=== PATIENT | male | born 1935 | race Caucasian/White ===

== ENCOUNTER 2017-09-07 10:16 | Day surgery (SDC) | payer MEDICARE, OTHER ==
[2017-09-07] MEDS ORDERED: Tetracaine HCl/PF 0.5% 4 ML Bottle EYEBOTH SCH (11:30)
[2017-09-07] MEDS ORDERED: Sodium Chloride 0.9% 10 ML Syringe FLUSH PRN (11:33)
[2017-09-07] MEDS ORDERED: Lidocaine 1%/Sod Bicarbonate in NS 8.4% 1 ML Syringe IDERM PRN (11:33)
[2017-09-07] MEDS ORDERED: Lactated Ringers 1,000 ML IV SCH (11:45)
[2017-09-07] MEDS ORDERED: Lidocaine 1% with EPINEPHrine 1:100,000 20 ML MDV ONE (12:08)
--- NOTE | 2017-09-07 12:10 | PCM.PREANE ---
Preanesthetic Assessment - Allergies Allergies/Adverse Reactions: Allergies Allergy/AdvReac Type Severity Reaction Status Date / Time No Known Allergies Allergy Verified 09/06/17 12:32 PreAnesthesia Questionnaire HEENT History: Reports: Cataract Cardiovascular History: Reports: High Cholesterol, Hypertension, Other (See Below) (aortic valve repacement, bypass x3) Respiratory History: Reports: None Gastrointestinal History: Reports: None Neurological History: Reports: None Psychiatric History: Reports: None Endocrine/Metabolic History: Reports: None - Past Surgical History Head Surgeries/Procedures: Reports: None HEENT Surgical History: Reports: Adenoidectomy, Tonsillectomy Cardiovascular Surgical History: Reports: Coronary Artery Bypass, Valve Replacement Respiratory Surgical History: Reports: None GI Surgical History: Reports: Hernia, Inguinal Male Surgical History: Reports: None, Other (See Below) (bladder stone) Endocrine Surgical History: Reports: None Neurological Surgical History: Reports: None Musculoskeletal Surgical History: Reports: None Oncologic Surgical History: Reports: None Dermatological Surgical History: Reports: None - SUBSTANCE USE Smoking Status *Q: Never Smoker Second Hand Smoke Exposure: No Recreational Drug Use History: No - HOME MEDS Home Medications: Home Meds Aspirin [Halfprin] 81 mg PO DAILY 09/06/17 [History] Lisinopril/Hydrochlorothiazide [Lisinopril-Hctz 20-25 mg Tab] 1 tab PO DAILY [History] Metoprolol Tartrate [Metoprolol Tartrate] 50 mg PO DAILY 09/06/17 [History] Simvastatin [Simvastatin] 20 mg PO DAILY 09/06/17 [History] Tetrahydrozoline HCl [Visine] 1 drop EYEBOTH ASDIRECTED 09/06/17 [History] amLODIPine Besylate [Amlodipine Besylate] 5 mg PO DAILY 09/06/17 [History] - CURRENT (IN HOUSE) MEDS Current Meds: Current Medications Lactated Ringer's (Ringers, Lactated) 1,000 mls @ 125 mls/hr IV ASDIRECTED CARLIE Stop: 09/07/17 23:00 Lidocaine/Sodium Bicarbonate (Buffered Lidocaine 1% In Ns 8.4%) 0.25 ml IDERM ONETIME PRN PRN Reason: Prior to IV Start Stop: 09/07/17 18:00 Sodium Chloride (Saline Flush) 10 ml FLUSH ASDIRECTED PRN PRN Reason: Keep Vein Open Stop: 09/07/17 18:00 Tetracaine HCl (Tetracaine 0.5% Steri-Unit Sara) 0 ml EYEBOTH ASDIRECTED CARLIE Stop: 09/07/17 18:00 Discontinued Medications Lidocaine/Epinephrine (Xylocaine 1% With Epinephrine 1:100,000) Confirm Administered Dose 20 ml .ROUTE .STK-MED ONE Stop: 09/07/17 12:09
--- NOTE | 2017-09-07 12:23 | PCM.PREANE ---
Preanesthetic Assessment - Anesthesia/Transfusion/Family Hx Anesthesia History: Prior Anesthesia Without Reaction Family History of Anesthesia Reaction: No Transfusion History: No Prior Transfusion(s) Intubation History: Unknown - Review of Systems General: No Symptoms Pulmonary: No Symptoms Cardiovascular: No Symptoms Gastrointestinal: No Symptoms Neurological: No Symptoms Other: Reports: None - Physical Assessment NPO Status Date: 09/06/17 NPO Status Time: 20:00 Pulse: 53 O2 Sat by Pulse Oximetry: 98 Respiratory Rate: 16 Blood Pressure: 138/41 Vital Signs: Last Vital Signs Temp 36.6 C 09/07/17 11:30 Pulse 53 L 09/07/17 11:30 Resp 16 09/07/17 11:30 BP 138/41 L 09/07/17 11:30 Pulse Ox 98 09/07/17 11:30 Height: 1.75 m Weight: 79.379 kg ASA Class: 2 Mental Status: Alert & Oriented x3 Airway Class: Mallampati = 2 Dentition: Reports: Dentures (upper/lower) Thyro-Mental Finger Breadths: 3 Mouth Opening Finger Breadths: 3 ROM/Head Extension: Full Lungs: Clear to Auscultation, Normal Respiratory Effort Cardiovascular: Regular Rate, Regular Rhythm - Allergies Allergies/Adverse Reactions: Allergies Allergy/AdvReac Type Severity Reaction Status Date / Time No Known Allergies Allergy Verified 09/06/17 12:32 - Anesthesia Plan Beta Thelma: Metoprolol Med Last Dose Date: 09/07/17 Med Last Dose Time: 06:00 - Acknowledgements Anesthesia Type Planned: MAC Pt an Appropriate Candidate for the Planned Anesthesia: Yes Alternatives and Risks of Anesthesia Discussed w Pt/Guardian: Yes Pt/Guardian Understands and Agrees with Anesthesia Plan: Yes PreAnesthesia Questionnaire HEENT History: Reports: Cataract Cardiovascular History: Reports: High Cholesterol, Hypertension, Other (See Below) (aortic valve repacement, bypass x3) Respiratory History: Reports: None Gastrointestinal History: Reports: None Neurological History: Reports: None Psychiatric History: Reports: None Endocrine/Metabolic History: Reports: None - Past Surgical History Head Surgeries/Procedures: Reports: None HEENT Surgical History: Reports: Adenoidectomy, Tonsillectomy Cardiovascular Surgical History: Reports: Coronary Artery Bypass, Valve Replacement Respiratory Surgical History: Reports: None GI Surgical History: Reports: Hernia, Inguinal Male Surgical History: Reports: None, Other (See Below) (bladder stone) Endocrine Surgical History: Reports: None Neurological Surgical History: Reports: None Musculoskeletal Surgical History: Reports: None Oncologic Surgical History: Reports: None Dermatological Surgical History: Reports: None - SUBSTANCE USE Smoking Status *Q: Never Smoker Second Hand Smoke Exposure: No Recreational Drug Use History: No - HOME MEDS Home Medications: Home Meds Aspirin [Halfprin] 81 mg PO DAILY 09/06/17 [History] Lisinopril/Hydrochlorothiazide [Lisinopril-Hctz 20-25 mg Tab] 1 tab PO DAILY [History] Metoprolol Tartrate [Metoprolol Tartrate] 50 mg PO DAILY 09/06/17 [History] Simvastatin [Simvastatin] 20 mg PO DAILY 09/06/17 [History] Tetrahydrozoline HCl [Visine] 1 drop EYEBOTH ASDIRECTED 09/06/17 [History] amLODIPine Besylate [Amlodipine Besylate] 5 mg PO DAILY 09/06/17 [History] - CURRENT (IN HOUSE) MEDS Current Meds: Current Medications Lactated Ringer's (Ringers, Lactated) 1,000 mls @ 125 mls/hr IV ASDIRECTED [facility] Stop: 09/07/17 23:00 Lidocaine/Sodium Bicarbonate (Buffered Lidocaine 1% In Ns 8.4%) 0.25 ml IDERM ONETIME PRN PRN Reason: Prior to IV Start Stop: 09/07/17 18:00 Sodium Chloride (Saline Flush) 10 ml FLUSH ASDIRECTED PRN PRN Reason: Keep Vein Open Stop: 09/07/17 18:00 Tetracaine HCl (Tetracaine 0.5% Steri-Unit Sara) 0 ml EYEBOTH ASDIRECTED CARLIE Stop: 09/07/17 18:00 Discontinued Medications Lidocaine/Epinephrine (Xylocaine 1% With Epinephrine 1:100,000) Confirm Administered Dose 20 ml .ROUTE .STK-MED ONE Stop: 09/07/17 12:09
[2017-09-07] MEDS ORDERED: Lidocaine 1% 4 ML ONE (12:59)
[2017-09-07] MEDS ORDERED: Propofol 200 MG/20 ML SDV ONE ×2 (12:59→13:00)
[2017-09-07] MEDS ORDERED: Erythromycin Base 0.5% Ophth Oint 1 GM Tube EYEBOTH ONE (13:02)
[2017-09-07] MEDS ORDERED: Erythromycin Base 0.5% Ophth Oint 1 GM Tube ONE (13:17)
--- NOTE | 2017-09-07 13:38 | PCM48HPAN ---
Post Anesthesia Note - EVALUATION WITHIN 48HRS OF ANESTHETIC Vital Signs in Normal Range: Yes Patient Participated in Evaluation: Yes Respiratory Function Stable: Yes Airway Patent: Yes Cardiovascular Function Stable: Yes Hydration Status Stable: Yes Pain Control Satisfactory: Yes Nausea and Vomiting Control Satisfactory: Yes Mental Status Recovered: Yes Pulse Rate: 53 SaO2: 100 Resp Rate: 16 Temperature: 37 C Blood Pressure: 107/42
[2017-09-07] MEDS ORDERED: fentaNYL 100 MCG/2 ML SDV ONE (13:45)
[2017-09-07 13:54] VITALS: BP 107/42
== END 2017-09-07 14:28 | disposition home or self-care (01) ==
LOC: JD.SDS 10:16
PROVIDERS: ATTEND Ophthalmology
DX: L82.1 Other seborrheic keratosis (principal); H02.89 Other specified disorders of eyelid; I10 Essential (primary) hypertension; E78.00 Pure hypercholesterolemia, unspecified; Z98.890 Other specified postprocedural states; Z79.82 Long term (current) use of aspirin; Z79.899 Other long term (current) drug therapy; Z87.891 Personal history of nicotine dependence
CPT/HCPCS: 11442; 65400; A9270; J3010; J7120; 88304; 88305; J2001; J2704

== ENCOUNTER 2018-09-30 04:45 | Inpatient (IN) | payer MEDICARE, OTHER ==
[2018-09-30] MEDS ORDERED: Furosemide 40 MG/4 ML VIAL IVPUSH ONE (05:04)
[2018-09-30] MEDS ORDERED: Sodium Chloride 0.9% 10 ML Syringe FLUSH PRN (05:04)
--- NOTE | 2018-09-30 05:09 | EDM.PDOC ---
ED HPI GENERAL MEDICAL PROBLEM - General Chief Complaint: Respiratory Problem Stated Complaint: [facility] Time Seen by Provider: 09/30/18 04:50 Source of Information: Reports: Patient, EMS History Limitations: Reports: No Limitations - History of Present Illness INITIAL COMMENTS - FREE TEXT/NARRATIVE: 82-year-old male presents to the ED per [facility]. States that he's had gradual onset of increasing dyspnea and difficulty breathing with some central chest pressure for the last 3-4 days. He's been sleeping on the couch and has been able to lie flat but tonight he did not sleep at all because of dyspnea. He is not on home oxygen. Known coronary disease having had triple bypass carried out in 2001. No stents have ever been placed. Recent changes to medications with the addition of Zoloft within the last month and he believes amlodipine 5 mg daily for blood pressure control. He has a cough but no sputum production. Tight has been poor over the last month with he reports a 10 pound weight loss. Paramedics report O2 sats were 86% upon their arrival. They placed him on O2 at 2 L/m to these achieved O2 sats of 91%. Increased to 3 L/m in the ER. CODE STATUS is full resuscitation. Onset: Gradual Onset Date: 09/27/18 (Actually increasing dyspnea over the last several days if not the last week.) Duration: Day(s):, Constant (Worse at night.), Getting Worse Location: Reports: Chest (Crease difficulty breathing.) Quality: Reports: Pressure Severity: Moderate (Water difficulty breathing.) Improves with: Reports: None Worsens with: Reports: Other, Movement Context: Denies: Activity, Exercise (Lying flat makes things worse), Lifting, Sick Contact, Trauma, Other Associated Symptoms: Reports: Chest Pain, Cough, cough w sputum (Very little sputum production. Perhaps maybe pinkish at times), Loss of Appetite, Malaise, Shortness of Breath, Weakness. Denies: No Other Symptoms (Central chest heaviness), Confusion, Diaphoresis, Fever/Chills, Headaches, Nausea/Vomiting, Rash, Seizure Treatments FURNACE RELINER: Reports: Other (see below) (None.) Chest Pain Score (Numeric/FACES): 3 - Related Data Allergies Allergy/AdvReac Type Severity Reaction Status Date / Time No Known Allergies Allergy Verified 09/30/18 04:56 Home Meds: Home Meds Aspirin [Halfprin] 81 mg PO DAILY 09/06/17 [History] Lisinopril/Hydrochlorothiazide [Lisinopril-Hctz 20-25 mg Tab] 20 mg PO DAILY [History] Metoprolol Tartrate 25 mg PO BID 09/06/17 [History] Simvastatin 20 mg PO DAILY 09/06/17 [History] amLODIPine Besylate [Amlodipine Besylate] 5 mg PO DAILY 09/06/17 [History] Ferrous Sulfate 324 mg PO DAILY 09/30/18 [History] Sertraline [Zoloft] 50 mg PO DAILY 09/30/18 [History] Past Medical History HEENT History: Reports: Cataract, Impaired Vision Other HEENT History: Wears glasses Cardiovascular History: Reports: Bypass, High Cholesterol, Hypertension, Other ( See Below) Other Cardiovascular History: aortic stenosis Respiratory History: Reports: None Gastrointestinal History: Reports: None Neurological History: Reports: None Psychiatric History: Reports: None Endocrine/Metabolic History: Reports: None - Past Surgical History Head Surgeries/Procedures: Reports: None HEENT Surgical History: Reports: Adenoidectomy, Tonsillectomy Cardiovascular Surgical History: Reports: Coronary Artery Bypass, Valve Replacement Respiratory Surgical History: Reports: None GI Surgical History: Reports: Hernia, Inguinal Male Surgical History: Reports: None Endocrine Surgical History: Reports: None Neurological Surgical History: Reports: None Musculoskeletal Surgical History: Reports: None Oncologic Surgical History: Reports: None Dermatological Surgical History: Reports: None Social & Family History - Tobacco Use Smoking Status *Q: Former Smoker Used Tobacco, but Quit: Yes Month/Year Tobacco Last Used: 2002 - Recreational Drug Use Recreational Drug Use: No - Living Situation & Occupation Living situation: Reports: Occupation: Employed [employer] - Review of Systems Review Of Systems: See Below Constitutional: Reports: Malaise, Weakness, Fatigue, Decreased Appetite, Weight Loss (Reports 10 pound weight loss over the last month to 6 weeks). Denies: Fever, Chills HEENT: Reports: Glasses, Hearing Loss (Mild.) Respiratory: Reports: Shortness of Breath, Cough, Sputum. Denies: Wheezing, Pleuritic Chest Pain, Hemoptysis (Occasional pinkish sputum production), Other Cardiovascular: Reports: Blood Pressure Problem, Dyspnea on Exertion. Denies: No Symptoms, Chest Pain, Claudication, Edema, Lightheadedness, Orthopnea ( Chronic hypertension) Endocrine: Reports: Fatigue (Chronically) GI/Abdominal: Reports: Constipation (Occasional problems with constipation) : Reports: Frequency, Other (Arterial usually 3) Musculoskeletal: Reports: Neck Pain (Case no shoulder pain), Shoulder Pain, Back Pain, Joint Pain Skin: Reports: Bruising (Bruises easily particular in his hands and forearms. A Baby Aspirin Daily) Neurological: Reports: No Symptoms Psychiatric: Reports: Anxiety, Depression Hematologic/Lymphatic: Reports: No Symptoms Immunologic: Reports: No Symptoms ED EXAM, GENERAL - Physical Exam Exam: See Below Exam Limited By: No Limitations General Appearance: Alert, WD/WN, Mild Distress, Other (Mild respiratory distress. He can speak in full sentences. O2 sats were 86% on room air. 94% on 3 L. Respiratory rate was 25/m. BP 150/50. Afebrile) Eye Exam: Bilateral Eye: Normal Inspection Throat/Mouth: Normal Inspection, Normal Lips, Normal Oropharynx Head: Atraumatic, Normocephalic Neck: Normal Inspection, Supple, Non-Tender, Full Range of Motion. No: Lymphadenopathy (L), Lymphadenopathy (R) Respiratory/Chest: No Accessory Muscle Use, Chest Non-Tender, Respiratory Distress (Tachypnea at rest 25/m.), Rales (Riley both lung bases worse on the right as compared to the left.) Cardiovascular: No Edema ( palpation of his radial pulse which is quite strong and bounding.), No Gallop, No Murmur, No Rub, Irregularly Irregular (Occasional PACs appreciated on). No: Normal Peripheral Pulses Peripheral Pulses: 2+: Posterior Tibial (L), Posterior Tibial (R), Dorsalis Pedis (L), Dorsalis Pedis (R), 3+: Carotid (L), Carotid (R), Radial (L), Radial (R) GI/Abdominal: Normal Bowel Sounds, Soft, Non-Tender, No Organomegaly, No Abnormal Bruit, No Mass, Pelvis Stable, Distended (Mild tympany to percussion upper abdomen with mild aerophagia.) Back Exam: Normal Inspection, Full Range of Motion. No: CVA Tenderness (L), CVA Tenderness (R) Extremities: Normal Inspection, Normal Range of Motion, Non-Tender, No Pedal Edema Neurological: Alert, Oriented, CN II-XII Intact, Normal Cognition Psychiatric: Normal Affect, Normal Mood Skin Exam: Warm, Dry, Intact, Normal Color, Other (Venous stasis dermatitis both upper forearms and hands from reading under the skin.) EKG INTERPRETATION EKG Date: 09/30/18 Time: 04:50 Rhythm: NSR Rate (Beats/Min): 85 (Occasional PACs) [place]: LAD-Left [place] Deviation (-28) P-Wave: Enlarged (Left atrial hypertrophy pattern) QRS: Other (Q waves V1 and V2 and near Q-wave V3 compatible with old large anteroseptal myocardial infarction. Left ventricular hypertrophy pattern with repolarization abnormality or strain pattern.) ST-T: Other (Moderately prolonged ST segment depression in leads 1 and T-wave inversion aVL.) QT: Prolonged EKG Interpretation Comments: Abnormal ECG. Course - Vital Signs Last Recorded V/S: Last Vital Signs Temp 36.2 C 09/30/18 04:49 Pulse 89 09/30/18 04:49 Resp 25 H 09/30/18 04:49 BP 150/50 H 09/30/18 04:49 Pulse Ox 95 09/30/18 07:39 - Orders/Labs/Meds Orders: Active Orders 24 hr Category Date Time Status EKG Documentation Completion [RC] STAT Care 09/30/18 05:03 Active Oxygen Therapy [RC] ASDIRECTED Care 09/30/18 05:03 Active Peripheral IV Care [RC] . DIRECTED Care 09/30/18 05:04 Active Sodium Chloride 0.9% [Saline Flush] Med 09/30/18 05:04 Active 10 ml FLUSH ASDIRECTED PRN Peripheral IV Insertion Adult [OM.PC] Stat Oth 09/30/18 05:04 Ordered Medication Orders Sodium Chloride (Saline Flush) 10 ml FLUSH ASDIRECTED PRN PRN Reason: Keep Vein Open Last Admin: 09/30/18 05:13 Dose: 10 ml Labs: Laboratory Tests 09/30/18 09/30/18 09/30/18 Range/Units 05:20 05:20 05:20 WBC 11.08 H (4.23-9.07) K/mm3 RBC 4.11 L (4.63-6.08) M/mm3 Hgb 12.0 L (13.7-17.5) gm/L Hct 36.2 L (40.1-51.0) % MCV 88.1 (79.0-92.2) fl MCH 29.2 (25.7-32.2) pg MCHC 33.1 (32.2-35.5) g/dl RDW Std Deviation 42.0 (35.1-43.9) fL Plt Count 217 (163-337) K/mm3 MPV 11.6 (9.4-12.3) fl Neutrophils % (Manual) 81 H (40-60) % Band Neutrophils % 0 (0-10) % Lymphocytes % (Manual) 11 L (20-40) % Atypical Lymphs % 0 % Monocytes % (Manual) 7 (2-10) % Eosinophils % (Manual) 1 (0.8-7.0) % Basophils % (Manual) 0 L (0.2-1.2) Platelet Estimate Adequate RBC Morph Comment Normal PT 12.0 (9.5-12.1) SECONDS INR 1.10 APTT 24 (24-31) SECONDS Sodium 141 (136-145) mEq/L Potassium 3.6 (3.5-5.1) mEq/L Chloride 104 (98-107) mEq/L Carbon Dioxide 25 (21-32) mEq/L Anion Gap 15.6 H (5-15) BUN 35 H (7-18) mg/dL Creatinine 1.4 H (0.7-1.3) mg/dL Est Cr Clr Drug Dosing 41.38 mL/min Estimated GFR (MDRD) 49 (>60) mL/min BUN/Creatinine Ratio 25.0 H (14-18) Glucose 124 H (83-115) mg/dL Calcium 9.3 (8.5-10.1) mg/dL Magnesium 1.7 L (1.8-2.4) mg/dl Total Bilirubin 0.6 (0.2-1.0) mg/dL AST 25 (15-37) U/L ALT 43 (16-63) U/L Alkaline Phosphatase 66 (46-116) U/L CK-MB (CK-2) 2.0 (0-3.6) ng/ml Troponin I 0.091 H* (0.00-0.056) ng/mL NT-Pro-B Natriuret Pep (0-450) pg/mL Total Protein 6.0 L (6.4-8.2) g/dl Albumin 3.1 L (3.4-5.0) g/dl Globulin 2.9 gm/dL Albumin/Globulin Ratio 1.1 (1-2) 09/30/18 Range/Units 05:20 WBC (4.23-9.07) K/mm3 RBC (4.63-6.08) M/mm3 Hgb (13.7-17.5) gm/L Hct (40.1-51.0) % MCV (79.0-92.2) fl MCH (25.7-32.2) pg MCHC (32.2-35.5) g/dl RDW Std Deviation (35.1-43.9) fL Plt Count (163-337) K/mm3 MPV (9.4-12.3) fl Neutrophils % (Manual) (40-60) % Band Neutrophils % (0-10) % Lymphocytes % (Manual) (20-40) % Atypical Lymphs % % Monocytes % (Manual) (2-10) % Eosinophils % (Manual) (0.8-7.0) % Basophils % (Manual) (0.2-1.2) Platelet Estimate RBC Morph Comment PT (9.5-12.1) SECONDS INR APTT (24-31) SECONDS Sodium (136-145) mEq/L Potassium (3.5-5.1) mEq/L Chloride (98-107) mEq/L Carbon Dioxide (21-32) mEq/L Anion Gap (5-15) BUN (7-18) mg/dL Creatinine (0.7-1.3) mg/dL Est Cr Clr Drug Dosing mL/min Estimated GFR (MDRD) (>60) mL/min BUN/Creatinine Ratio (14-18) Glucose (83-115) mg/dL Calcium (8.5-10.1) mg/dL Magnesium (1.8-2.4) mg/dl Total Bilirubin (0.2-1.0) mg/dL AST (15-37) U/L ALT (16-63) U/L Alkaline Phosphatase (46-116) U/L CK-MB (CK-2) (0-3.6) ng/ml Troponin I (0.00-0.056) ng/mL NT-Pro-B Natriuret Pep 4368 H (0-450) pg/mL Total Protein (6.4-8.2) g/dl Albumin (3.4-5.0) g/dl Globulin gm/dL Albumin/Globulin Ratio (1-2) Meds: Medications Generic Name Dose Route Start Last Admin Trade Name Freq PRN Reason Stop Dose Admin Sodium Chloride 10 ml 09/30/18 05:04 09/30/18 05:13 Saline Flush FLUSH 10 ml ASDIRECTED PRN Administration Keep Vein Open Discontinued Medications Generic Name Dose Route Start Last Admin Trade Name Freq PRN Reason Stop Dose Admin Furosemide 40 mg 09/30/18 05:04 09/30/18 05:13 Lasix IVPUSH 09/30/18 05:05 40 mg NOW ONE Administration - Radiology Interpretation Free Text/Narrative:: 82-year-old male presents to the ED with gradually worsening dyspnea over the last 3-4 days or perhaps longer. He reports a 10 pound weight loss over the last month. Has no appetite. Reports there have been a few changes to his medicines over the last month. He is hypoxic at rest 86% on room air. Placed on O2 at 3 L/m to achieve O2 sats greater than 92%. On examination he has rales in both lower lungs arellano compatible with congestive heart failure. Healed sternotomy incision. CT shows evidence of past large anteroseptal myocardial infarction with no signs of acute ischemia. Plan 1 view chest x-ray. Saline lock. Lasix will be given 40 mg IV. Routine labs including cardiac markers and serum magnesium and BNP to be done. - Re-Assessments/Exams Free Text/Narrative Re-Assessment/Exam: 09/30/18 06:05: Chest x-ray reveals moderate cardiomegaly with diffuse vascular congestion pattern. There is a infiltrate in the left lower lobe either fluid or possibly early pneumonia. ECG shows evidence of a large anteroseptal myocardial infarction. There is no sign of an acute event. He has left atrial hypertrophy. Left ventricular hypertrophy pattern with secondary repolarization abnormality. 09/30/18 07:04 Labs reveal a total white count of 11.08 with 81% neutrophils and no bands. Hemoglobin is 12.0 with hematocrit of 36.2. Platelet counts 217, 000. PT is 12.0 with an INR of 1.10 PTT is 24. 141 with potassium of 3.6. Chloride 104 bicarbonate of 25. Anion gap is 15.6. BUN is elevated at 35 with a creatinine of 1.4. GFR is 49 ie. Stage III chronic kidney disease. Glucose was 124. BUN/creatinine ratio is 25 elevated. Calcium is 9.3. Magnesium slightly low at 1.7. Liver function is normal. CK-MB is pending. Troponin I is 0.091. Total protein is 6.0 albumin 3.1 BNP is also pending 09/30/18 07:17 CK-MB fraction was 2.0. A&P is elevated at 4368. Discussed the findings with the patient and he is willing to stay in the hospital. Eyes he will need diuresis over the next day or so to improve his respiratory function and allow his hypoxia to improve so that he does not need oxygen at home. He currently is on no diuretic therapy. 09/30/18 07:45 case discussed with hospitalist Dr. Daigle and he has accepted care. Patient to be admitted to the med surgery floor on telemetry. Stress code level with the patient and he wishes to remain "level I.--Full resuscitation Departure - Departure Time of Disposition: 08:00 Disposition: Admitted As Inpatient 67 Condition: Fair Clinical Impression: Hypomagnesemia, Chronic renal insufficiency, stage III (moderate) Acute exacerbation of congestive heart failure Qualifiers: Heart failure type: unspecified Qualified Code(s): I50.9 - Heart failure, unspecified Coronary artery disease Qualifiers: Coronary Disease-Associated Artery/Lesion type: bypass graft [place] vs. transplanted heart: [place] heart Associated angina: without angina Qualified Code(s): I25.810 - Atherosclerosis of coronary artery bypass graft(s) without angina pectoris - Discharge Information *PRESCRIPTION DRUG MONITORING PROGRAM REVIEWED*: Not Applicable *COPY OF PRESCRIPTION DRUG MONITORING REPORT IN PATIENT JESSI: Not Applicable Referrals: Nash Gray MD [Primary Care Provider] - Forms: ED Department Discharge - My Orders Last 24 Hours: My Active Orders 09/30/18 05:03 EKG Documentation Completion [RC] STAT Oxygen Therapy [RC] ASDIRECTED 09/30/18 05:04 Peripheral IV Care [RC] . DIRECTED Sodium Chloride 0.9% [Saline Flush] 10 ml FLUSH ASDIRECTED PRN Peripheral IV Insertion Adult [OM.PC] Stat - Assessment/Plan Last 24 Hours: My Active Orders 09/30/18 05:03 EKG Documentation Completion [RC] STAT Oxygen Therapy [RC] ASDIRECTED 09/30/18 05:04 Peripheral IV Care [RC] . DIRECTED Sodium Chloride 0.9% [Saline Flush] 10 ml FLUSH ASDIRECTED PRN Peripheral IV Insertion Adult [OM.PC] Stat
--- NOTE | 2018-09-30 07:11 | CR ---
Chest: Portable view of the chest was obtained. Comparison: No prior chest x-ray. Heart size appears within normal limits for portable technique. Lung markings are diffusely increased raising the possibility of pulmonary vascular congestion. Blunting of the lateral left costophrenic angle is seen compatible with small pleural effusion. Previous sternotomy is noted. Bony structures are grossly intact. Impression: 1. Findings suspicious for CHF. Diagnostic code #3
[2018-09-30] MEDS ORDERED: Bisacodyl 5 MG Tab PO PRN (11:38)
[2018-09-30] MEDS ORDERED: Acetaminophen 325 MG Tab PO PRN (11:38)
[2018-09-30] MEDS ORDERED: Docusate Sodium 100 MG Cap PO PRN (11:38)
[2018-09-30] MEDS ORDERED: Temazepam 7.5 MG Cap PO PRN (11:38)
[2018-09-30] MEDS ORDERED: Magnesium Sulfate/Water 2 GM in Premix Bag 1 BAG IV ONE (12:08)
--- NOTE | 2018-09-30 12:14 | PCM.HP ---
H&P History of Present Illness - General Date of Service: 09/30/18 Admit Problem/Dx: Admission Diagnosis/Problem Admission Diagnosis/Problem Congestive heart failure - History of Present Illness Initial Comments - Free Text/Narative: 82-year-old male admitted through the emergency room after being brought in by ambulance presented with 2 weeks of increasing shortness of breath and difficulty catching his breath. 2 weeks ago his great great granddaughter and after the memorial he went to Persian food. After eating the Persian food he began vomiting and hasn't felt good since. He did not have any chest pain. Patient states that over the last couple of days he has had progressive shortness of breath and orthopnea. Patient states his had difficulty sleeping but doesn't necessarily state has difficulty lying down. Patient has a history of three-vessel bypass surgery with aortic valve replacement in 2002. He states that they were planning on a valve replacement this spring. When EMS evaluated him his pulse ox was 86% upon arrival. Patient was placed on 2 L of O2 and they achieved and 91% pulse ox. In the ER he was placed on 3 L and pulse ox stayed in the mid 90s. Patient was given 40 mg IV furosemide in the ER and has had good diuresis and is feeling much better. Patient is not known to have congestive heart failure. He was started on Zoloft approximately 2-1/2 weeks ago. He is on metoprolol, lisinopril/ hydrochlorothiazide, and amlodipine for his blood pressure. Patient continues not have any chest pain. He denies any lower chimney edema is worse than normal. He first started getting some edema 2 years ago and has been using compression stockings. Patient also states that over the last 3 weeks he has lost 14 pounds. His last echocardiogram was greater than 1 year ago. He stopped smoking in 2002 and does not drink alcohol. Chest Pain Score (Numeric/FACES): 3 - Related Data Allergies/Adverse Reactions: Allergies Allergy/AdvReac Type Severity Reaction Status Date / Time No Known Allergies Allergy Verified 09/30/18 09:02 Home Medications: Home Meds Aspirin [Halfprin] 81 mg PO DAILY 09/06/17 [History] Lisinopril/Hydrochlorothiazide [Lisinopril-Hctz 20-25 mg Tab] 1 tab PO DAILY [History] Metoprolol Tartrate 25 mg PO BID 09/06/17 [History] Simvastatin 20 mg PO DAILY 09/06/17 [History] amLODIPine Besylate [Amlodipine Besylate] 5 mg PO DAILY 09/06/17 [History] Ferrous Sulfate 324 mg PO DAILY 09/30/18 [History] Sertraline [Zoloft] 50 mg PO DAILY 09/30/18 [History] Past Medical History HEENT History: Reports: Impaired Vision Other HEENT History: Wears glasses Cardiovascular History: Reports: Bypass, Heart Murmur, High Cholesterol, Hypertension, Other (See Below) Other Cardiovascular History: aortic stenosis with bovine valve replacement in 2002 Respiratory History: Reports: None Gastrointestinal History: Reports: Hemorrhoids, Other (See Below) Other Gastrointestinal History: has been having more gas/upset stomach recently Neurological History: Reports: None Psychiatric History: Reports: Depression Endocrine/Metabolic History: Reports: None Oncologic (Cancer) History: Reports: Other (See Below) Other Oncologic History: 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 - Past Surgical History Head Surgeries/Procedures: Reports: None HEENT Surgical History: Reports: Cataract Surgery, Tonsillectomy Cardiovascular Surgical History: Reports: Coronary Artery Bypass (Three-vessel in 2002), Valve Replacement (Bovine aortic valve replacement in 2002) GI Surgical History: Reports: Colonoscopy, EGD, Hernia, Inguinal Social & Family History - Family History Family Medical History: Noncontributory - Tobacco Use Smoking Status *Q: Former Smoker Years of Tobacco use: 66 Used Tobacco, but Quit: Yes Month/Year Tobacco Last Used: 2001 - Caffeine Use Caffeine Use: Reports: Coffee - Recreational Drug Use Recreational Drug Use: No - Living Situation & Occupation Living situation: Reports: Occupation: Employed H&P Review of Systems - Review of Systems: Review Of Systems: See Below General: Reports: Weakness, Fatigue. Denies: Fever HEENT: Reports: No Symptoms Pulmonary: Reports: Shortness of Breath. Denies: Pleuritic Chest Pain, Cough Cardiovascular: Reports: Dyspnea on Exertion, Orthopnea, Edema. Denies: Chest Pain, Palpitations, PND Gastrointestinal: Reports: Diarrhea. Denies: Black Stool, Bloody Stool, Distension Genitourinary: Reports: No Symptoms Musculoskeletal: Reports: No Symptoms Skin: Reports: No Symptoms Psychiatric: Reports: No Symptoms. Denies: Depression, Mood Lability Neurological: Reports: No Symptoms. Denies: Confusion, Dizziness Hematologic/Lymphatic: Reports: No Symptoms Immunologic: Reports: No Symptoms Exam - Exam Exam: See Below - Vital Signs Vital Signs: Last Vital Signs Temp 97.9 F 09/30/18 08:37 Pulse 68 09/30/18 08:37 Resp 18 09/30/18 08:37 BP 116/45 L 09/30/18 08:37 Pulse Ox 94 L 09/30/18 08:37 Weight: 159 lb 8 oz - Exam Quality Assessment: Supplemental Oxygen General: Alert, Oriented, Cooperative HEENT: Conjunctiva Clear, Mucosa Moist & [place], Nares Patent, Posterior Pharynx Clear Neck: Supple, Trachea Midline Lungs: Clear to Auscultation, Normal Respiratory Effort Cardiovascular: Regular Rate, Regular Rhythm, Systolic Murmur (Holosystolic murmur best heard at the right second intercostal space but throughout anterior chest) GI/Abdominal Exam: Normal Bowel Sounds, Soft, Non-Tender, No Organomegaly, No Distention Back Exam: Normal Inspection, Full Range of Motion Extremities: Non-Tender, Normal Capillary Refill, Pedal Edema (1+ pedal edema) Peripheral Pulses: 1+: Posterior Tibial (L), Posterior Tibial (R), Dorsalis Pedis (L), Dorsalis Pedis (R) Skin: Warm, Dry, Intact Neurological: Cranial Nerves Intact Neuro Extensive - Mental Status: Alert, Oriented x3, Normal Mood/Affect, Normal Cognition, Memory Intact Neuro Extensive - Motor, Sensory, Reflexes: CN II-XII Intact Psychiatric: Alert, Normal Affect, Normal Mood - Patient Data Lab Results Last 24 hrs: Laboratory Results - last 24 hr 09/30/18 09/30/18 09/30/18 Range/Units 05:20 05:20 05:20 WBC 11.08 H (4.23-9.07) K/mm3 RBC 4.11 L (4.63-6.08) M/mm3 Hgb 12.0 L (13.7-17.5) gm/L Hct 36.2 L (40.1-51.0) % MCV 88.1 (79.0-92.2) fl MCH 29.2 (25.7-32.2) pg MCHC 33.1 (32.2-35.5) g/dl RDW Std Deviation 42.0 (35.1-43.9) fL Plt Count 217 (163-337) K/mm3 MPV 11.6 (9.4-12.3) fl Neutrophils % (Manual) 81 H (40-60) % Band Neutrophils % 0 (0-10) % Lymphocytes % (Manual) 11 L (20-40) % Atypical Lymphs % 0 % Monocytes % (Manual) 7 (2-10) % Eosinophils % (Manual) 1 (0.8-7.0) % Basophils % (Manual) 0 L (0.2-1.2) Platelet Estimate Adequate RBC Morph Comment Normal PT 12.0 (9.5-12.1) SECONDS INR 1.10 APTT 24 (24-31) SECONDS Sodium 141 (136-145) mEq/L Potassium 3.6 (3.5-5.1) mEq/L Chloride 104 (98-107) mEq/L Carbon Dioxide 25 (21-32) mEq/L Anion Gap 15.6 H (5-15) BUN 35 H (7-18) mg/dL Creatinine 1.4 H (0.7-1.3) mg/dL Est Cr Clr Drug Dosing 41.38 mL/min Estimated GFR (MDRD) 49 (>60) mL/min BUN/Creatinine Ratio 25.0 H (14-18) Glucose 124 H (83-115) mg/dL Calcium 9.3 (8.5-10.1) mg/dL Magnesium 1.7 L (1.8-2.4) mg/dl Total Bilirubin 0.6 (0.2-1.0) mg/dL AST 25 (15-37) U/L ALT 43 (16-63) U/L Alkaline Phosphatase 66 (46-116) U/L CK-MB (CK-2) 2.0 (0-3.6) ng/ml Troponin I 0.091 H* (0.00-0.056) ng/mL NT-Pro-B Natriuret Pep (0-450) pg/mL Total Protein 6.0 L (6.4-8.2) g/dl Albumin 3.1 L (3.4-5.0) g/dl Globulin 2.9 gm/dL Albumin/Globulin Ratio 1.1 (1-2) Urine Color (Yellow) Urine Appearance (Clear) Urine pH (5.0-8.0) Ur Specific [place] (1.005-1.030) Urine Protein (Negative) Urine Glucose (UA) (Negative) Urine Ketones (Negative) Urine Occult Blood (Negative) Urine Nitrite (Negative) Urine Bilirubin (Negative) Urine Urobilinogen (0.2-1.0) Ur Leukocyte Esterase (Negative) Urine RBC (0-5) /hpf Urine WBC (0-5) /hpf Ur Epithelial Cells (0-5) /hpf Urine Bacteria (FEW) /hpf Urine Mucus (FEW) /hpf 09/30/18 09/30/18 Range/Units 05:20 10:58 WBC (4.23-9.07) K/mm3 RBC (4.63-6.08) M/mm3 Hgb (13.7-17.5) gm/L Hct (40.1-51.0) % MCV (79.0-92.2) fl MCH (25.7-32.2) pg MCHC (32.2-35.5) g/dl RDW Std Deviation (35.1-43.9) fL Plt Count (163-337) K/mm3 MPV (9.4-12.3) fl Neutrophils % (Manual) (40-60) % Band Neutrophils % (0-10) % Lymphocytes % (Manual) (20-40) % Atypical Lymphs % % Monocytes % (Manual) (2-10) % Eosinophils % (Manual) (0.8-7.0) % Basophils % (Manual) (0.2-1.2) Platelet Estimate RBC Morph Comment PT (9.5-12.1) SECONDS INR APTT (24-31) SECONDS Sodium (136-145) mEq/L Potassium (3.5-5.1) mEq/L Chloride (98-107) mEq/L Carbon Dioxide (21-32) mEq/L Anion Gap (5-15) BUN (7-18) mg/dL Creatinine (0.7-1.3) mg/dL Est Cr Clr Drug Dosing mL/min Estimated GFR (MDRD) (>60) mL/min BUN/Creatinine Ratio (14-18) Glucose (83-115) mg/dL Calcium (8.5-10.1) mg/dL Magnesium (1.8-2.4) mg/dl Total Bilirubin (0.2-1.0) mg/dL AST (15-37) U/L ALT (16-63) U/L Alkaline Phosphatase (46-116) U/L CK-MB (CK-2) (0-3.6) ng/ml Troponin I (0.00-0.056) ng/mL NT-Pro-B Natriuret Pep 4368 H (0-450) pg/mL Total Protein (6.4-8.2) g/dl Albumin (3.4-5.0) g/dl Globulin gm/dL Albumin/Globulin Ratio (1-2) Urine Color Yellow (Yellow) Urine Appearance Clear (Clear) Urine pH 6.0 (5.0-8.0) Ur Specific [place] 1.020 (1.005-1.030) Urine Protein Negative (Negative) Urine Glucose (UA) Negative (Negative) Urine Ketones Negative (Negative) Urine Occult Blood Negative (Negative) Urine Nitrite Negative (Negative) Urine Bilirubin Negative (Negative) Urine Urobilinogen 0.2 (0.2-1.0) Ur Leukocyte Esterase Negative (Negative) Urine RBC Not seen (0-5) /hpf Urine WBC 0-5 (0-5) /hpf Ur Epithelial Cells 0-5 (0-5) /hpf Urine Bacteria Few (FEW) /hpf Urine Mucus Not seen (FEW) /hpf Result Diagrams: 09/30/18 05:20 09/30/18 11:50 EKG INTERPRETATION EKG Date: 09/30/18 Time: 12:54 Rhythm: NSR Rate (Beats/Min): 70 [place]: LAD-Left [place] Deviation P-Wave: Present QRS: Other (LVH) ST-T: Other (Concave elevation in lead V1, V2 of 1 mm likely secondary to repolarization abnormality. T-wave flattening compared to previous ECG in lead V4, V5, and V6.) QT: Prolonged (QTC of 490) Comparison: Change From Previous EKG (More T-wave flattening in V4, V5, and V6 then GAIL done at 4:50 AM.) EKG Interpretation Comments: Abnormal ECG?slight flattening of T waves in the anterolateral leads. Could be due to ischemia. - Problem List (1) Acute exacerbation of congestive heart failure SNOMED Code(s): 59638277 ICD Code: I50.9 - HEART FAILURE, UNSPECIFIED Status: Acute Current Visit : Yes Qualifiers: Heart failure type: unspecified Qualified Code(s): I50.9 - Heart failure, unspecified (2) Chronic renal insufficiency, stage III (moderate) SNOMED Code(s): 273206903 ICD Code: N18.3 - CHRONIC KIDNEY DISEASE, STAGE 3 (MODERATE) Status: Acute Current Visit: Yes (3) Coronary artery disease SNOMED Code(s): 54034170 ICD Code: I25.10 - ATHSCL HEART DISEASE OF [place] CORONARY ARTERY W/O ANG PCTRS Status: Acute Current Visit: Yes Qualifiers: Coronary Disease-Associated Artery/Lesion type: bypass graft [place] vs. transplanted heart: [place] heart Associated angina: without angina Qualified Code(s): I25.810 - Atherosclerosis of coronary artery bypass graft(s) without angina pectoris (4) Hypomagnesemia SNOMED Code(s): 978358165 ICD Code: E83.42 - HYPOMAGNESEMIA Status: Acute Current Visit: Yes Problem List Initiated/Reviewed/Updated: Yes Orders Last 24hrs: Active Orders 24 hr Category Date Time Status Admission Status [Patient Status] [ADT] Routine ADT 09/30/18 07:53 Active Bedrest Bathroom Privileges [RC] ASDIRECTED Care 09/30/18 11:38 Active Cardiac Monitoring [RC] CONTINUOUS Care 09/30/18 11:40 Active Height and Weight [RC] DAILY Care 09/30/18 11:38 Active Intake and Output [RC] QSHIFT Care 09/30/18 11:40 Active Notify Provider Vital Signs [RC] ASDIRECTED Care 09/30/18 11:40 Active Oxygen Therapy [RC] ASDIRECTED Care 09/30/18 05:03 Active Oxygen Therapy [RC] PRN Care 09/30/18 11:39 Active VTE/DVT Education [RC] PER UNIT ROUTINE Care 09/30/18 11:39 Active Vital Signs [RC] Q4H Care 09/30/18 11:39 Active Consult to Case Management/Evaporator [CONS] Cons 09/30/18 11:38 Active Routine Heart Healthy Diet [DIET] Diet 09/30/18 Dinner Active Chest 1V Frontal [CR] AM Exams 10/01/18 05:11 Ordered BASIC METABOLIC PANEL,BMP [CHEM] Stat Lab 09/30/18 11:50 Received CBC WITH AUTO DIFF [HEME] AM Lab 10/01/18 05:11 Ordered CKMB [CHEM] AM Lab 10/01/18 05:11 Ordered COMPREHENSIVE METABOLIC PN,CMP [CHEM] AM Lab 10/01/18 05:11 Ordered CREATINE KINASE,CK [CHEM] AM Lab 10/01/18 05:11 Ordered MAGNESIUM [CHEM] AM Lab 10/01/18 05:11 Ordered PHOSPHORUS [CHEM] AM Lab 10/01/18 05:11 Ordered TROPONIN I [CHEM] Stat Lab 09/30/18 11:50 Received TROPONIN I [CHEM] Timed Lab 09/30/18 17:30 Ordered Acetaminophen [Tylenol] Med 09/30/18 11:38 Active 650 mg PO Q4H PRN Aspirin [Halfprin] Med 10/01/18 09:00 Active 81 mg PO DAILY Bisacodyl [Dulcolax] Med 09/30/18 11:38 Active 5 mg PO DAILY PRN Docusate Sodium [Colace] Med 09/30/18 11:38 Active 100 mg PO BID PRN Enoxaparin [Lovenox] Med 09/30/18 11:45 Active 40 mg SUBCUT DAILY Magnesium Sulfate/Water [Magnesium Sulfate 2 GM in Med 09/30/18 12:08 Ordered Water 50 ML] 2 gm Premix Bag 1 bag IV ONETIME Metoprolol Tartrate [Lopressor] Med 09/30/18 11:45 Active 25 mg PO BID Sertraline [Zoloft] Med 10/01/18 09:00 Active 50 mg PO DAILY Simvastatin [Zocor] Med 10/01/18 09:00 Active 20 mg PO DAILY Sodium Chloride 0.9% [Saline Flush] Med 09/30/18 05:04 Active 10 ml FLUSH ASDIRECTED PRN Temazepam [Restoril] Med 09/30/18 11:38 Active 7.5 mg PO BEDTIME PRN amLODIPine [Norvasc] Med 09/30/18 11:45 Active 5 mg PO DAILY Peripheral IV Insertion Adult [OM.PC] Stat Oth 09/30/18 05:04 Ordered Resuscitation Status Routine Resus Stat 09/30/18 08:38 Ordered Medication Orders Acetaminophen (Tylenol) 650 mg PO Q4H PRN PRN Reason: Pain (Mild 1-3)/fever Amlodipine Besylate (Norvasc) 5 mg PO DAILY CARLIE Aspirin (Halfprin) 81 mg PO DAILY CARLIE Bisacodyl (Dulcolax) 5 mg PO DAILY PRN PRN Reason: Constipation Docusate Sodium (Colace) 100 mg PO BID PRN PRN Reason: Constipation Enoxaparin Sodium (Lovenox) [address] [facility] Magnesium Sulfate 2 gm/ Premix 50 mls @ 25 mls/hr IV ONETIME ONE Stop: 09/30/18 14:07 Metoprolol Tartrate (Lopressor) [address] [facility] Sertraline HCl (Zoloft) 50 mg PO DAILY CARLIE Simvastatin (Zocor) [address] [facility] Sodium Chloride (Saline Flush) 10 ml FLUSH ASDIRECTED PRN PRN Reason: Keep Vein Open Last Admin: 09/30/18 05:13 Dose: 10 ml Temazepam (Restoril) 7.5 mg PO BEDTIME PRN PRN Reason: Sleep Assessment/Plan Comment:: New onset CHF - Worsening shortness of breath over the last 2 weeks after having an episode of vomiting. Shortness of breath and orthopnea worsened over the last 24 -48 hours. - Mild increase in troponin likely due to CHF and ischemia. Low likelihood of myocardial injury - Patient has known aortic stenosis with bovine valve replacement in 2002. - Get echocardiogram in the morning. - Patient currently is asymptomatic and off oxygen. He has no chest pain or shortness of breath. - Start isosorbide dinitrate 20 mg 3 times a day - Continue conservative diuresis. - Follow blood pressure closely, daily weights, and intake and output closely Coronary artery disease - Patient had a three-vessel bypass in 2002. - Continue serial troponin and ECG - Consider stress test when stable Chronic renal insufficiency - Monitor kidney function closely as we diuresis. - Plan to restart lisinopril tomorrow depending on labs. Hypomagnesemia - Give 2 g IV magnesium and recheck in the morning. Hypertension - Continue metoprolol in the hospital. Restart lisinopril and amlodipine if blood pressure can tolerate it VTE prophylaxis with Lovenox 40 mg daily
[2018-09-30] MEDS: Enoxaparin 40 MG/0.4 ML Syringe SUBCUT SCH (12:48)
[2018-09-30] MEDS: Metoprolol Tartrate 25 MG Tab PO SCH ×2 (12:48→21:46)
[2018-09-30] MEDS: amLODIPine 5 MG Tab PO SCH (12:48)
[2018-09-30] MEDS ORDERED: Furosemide 20 MG/2 ML VIAL IVPUSH ONE (13:22)
[2018-09-30] MEDS: Isosorbide Dinitrate 20 MG Tab PO SCH ×3 (13:42→21:44)
[2018-10-01] MEDS ORDERED: Furosemide 40 MG Tab PO PRN (08:17)
[2018-10-01] MEDS ORDERED: hydrALAZINE 10 MG Tab PO SCH ×2 (08:30)
--- NOTE | 2018-10-01 08:51 | CR ---
Chest: Frontal view of the chest is obtained. Comparison: Prior chest x-ray of 09/30/18. Heart is slightly more prominent in size than on previous exam. Prior sternotomy is noted. Pulmonary vessels remain congested. Bony structures are grossly intact. Impression: 1. Heart size slightly more prominent than on prior exam. 2. Stable pulmonary vascular congestion from previous exam. Diagnostic code #3
[2018-10-01] MEDS ORDERED: Lisinopril 20 MG Tab PO SCH (09:00)
[2018-10-01] MEDS ORDERED: Aspirin 81 MG Tab.EC PO SCH (09:00)
[2018-10-01] MEDS ORDERED: Sertraline 50 MG Tab PO SCH (09:00)
[2018-10-01] MEDS ORDERED: Simvastatin 20 MG Tab PO SCH (09:00)
[2018-10-01] MEDS ORDERED: Clopidogrel 75 MG Tab PO ONE (09:24)
[2018-10-01] MEDS: Metoprolol Tartrate 25 MG Tab PO SCH (10:02)
[2018-10-01] MEDS: amLODIPine 5 MG Tab PO SCH (10:07)
[2018-10-01] MEDS: Isosorbide Dinitrate 20 MG Tab PO SCH (10:08)
[2018-10-01] MEDS: Enoxaparin 40 MG/0.4 ML Syringe SUBCUT SCH (10:09)
--- NOTE | 2018-10-01 11:08 | PCM.DCSUM1 ---
Discharge Summary - Hospital Course HPI Initial Comments: 82-year-old male admitted through the emergency room after being brought in by ambulance presented with 2 weeks of increasing shortness of breath and difficulty catching his breath. 2 weeks ago his great great granddaughter and after the memorial he went to [employer]. After eating the [employer] he began vomiting and hasn't felt good since. He did not have any chest pain. Patient states that over the last couple of days he has had progressive shortness of breath and orthopnea. Patient states his had difficulty sleeping but doesn't necessarily state has difficulty lying down. Patient has a history of three-vessel bypass surgery with aortic valve replacement in 2002. He states that they were planning on a valve replacement this spring. When EMS evaluated him his pulse ox was 86% upon arrival. Patient was placed on 2 L of O2 and they achieved and 91% pulse ox. In the ER he was placed on 3 L and pulse ox stayed in the mid 90s. Patient was given 40 mg IV furosemide in the ER and has had good diuresis and is feeling much better. Patient is not known to have congestive heart failure. He was started on Zoloft approximately 2-1/2 weeks ago. He is on metoprolol, lisinopril/ hydrochlorothiazide, and amlodipine for his blood pressure. Patient continues not have any chest pain. He denies any lower chimney edema is worse than normal. He first started getting some edema 2 years ago and has been using compression stockings. Patient also states that over the last 3 weeks he has lost 14 pounds. His last echocardiogram was greater than 1 year ago. He stopped smoking in 2002 and does not drink alcohol. - Discharge Data Discharge Date: 10/01/18 Discharge Disposition: DC/Tfer to Acute Hospital 02 Condition: Good - Discharge Diagnosis/Problem(s) (1) NSTEMI (non-ST elevated myocardial infarction) SNOMED Code(s): 08814318 ICD Code: I21.4 - NON-ST ELEVATION (NSTEMI) MYOCARDIAL INFARCTION Status: Acute Current Visit: Yes (2) Acute exacerbation of congestive heart failure SNOMED Code(s): 39811617 ICD Code: I50.9 - HEART FAILURE, UNSPECIFIED Status: Acute Current Visit : Yes Qualifiers: Heart failure type: unspecified Qualified Code(s): I50.9 - Heart failure, unspecified (3) Chronic renal insufficiency, stage III (moderate) SNOMED Code(s): 754679930 ICD Code: N18.3 - CHRONIC KIDNEY DISEASE, STAGE 3 (MODERATE) Status: Acute Current Visit: Yes (4) Coronary artery disease SNOMED Code(s): 58918309 ICD Code: I25.10 - ATHSCL HEART DISEASE OF [place] CORONARY ARTERY W/O ANG PCTRS Status: Acute Current Visit: Yes Qualifiers: Coronary Disease-Associated Artery/Lesion type: bypass graft [place] vs. transplanted heart: [place] heart Associated angina: without angina Qualified Code(s): I25.810 - Atherosclerosis of coronary artery bypass graft(s) without angina pectoris (5) Hypomagnesemia SNOMED Code(s): 223517421 ICD Code: E83.42 - HYPOMAGNESEMIA Status: Acute Current Visit: Yes - Patient Summary/Data Consults: Consultations 09/30/18 11:38 Consult to Case Management/Obstetrics Nurse Practitioner [CONS] Routine - Discharge Plan *PRESCRIPTION DRUG MONITORING PROGRAM REVIEWED*: Not Applicable *COPY OF PRESCRIPTION DRUG MONITORING REPORT IN PATIENT JESSI: Not Applicable Home Medications: Home Meds Aspirin [Halfprin] 81 mg PO DAILY 09/06/17 [History] Metoprolol Tartrate 25 mg PO BID 09/06/17 [History] Simvastatin 20 mg PO DAILY 09/06/17 [History] Sertraline [Zoloft] 50 mg PO DAILY 09/30/18 [History] Furosemide [Lasix] 40 mg PO DAILY tablet 10/01/18 [Rx] Isosorbide Dinitrate [Isordil] 20 mg PO TID tablet 10/01/18 [Rx] Sodium Chloride 0.9% [Saline Flush] 10 ml FLUSH ASDIRECTED PRN syringe [Rx] hydrALAZINE [Apresoline] 10 mg PO Q8HR tablet 10/01/18 [Rx] Forms: ED Department Discharge Referrals: Nash Gray MD [Primary Care Provider] - - Discharge Summary/Plan Comment DC Time >30 min.: Yes Discharge Summary/Plan Comment: NSTEMI withNew onset CHF - Worsening shortness of breath over the last 2 weeks after having an episode of vomiting. Shortness of breath and orthopnea worsened over the last 24 -48 hours. - Increase in troponins over the last 24 hours with change in EKG. - Given Plavix 300 mg loading dose. - Patient has known aortic stenosis with bovine valve replacement in 2002. - Patient currently is asymptomatic and off oxygen. He has no chest pain or shortness of breath. - isosorbide dinitrate 20 mg 3 times a day and hydralazine 10 mg 3 times a day - Continue conservative diuresis. - Transfer patient to [facility] in [place] Chronic renal insufficiency - Monitor kidney function closely as we diuresis. -Hold lisinopril Hypomagnesemia - Resolved - General Info Date of Service: 10/01/18 Admission Dx/Problem (Free Text: Admission Diagnosis/Problem Admission Diagnosis/Problem Congestive heart failure Subjective Update: Patient was given the 40 mg of Lasix IV he had good diuresis. Patient became asymptomatic, but his troponins did increase. Initial troponin on admission was 0.091 with Serial troponin of 0.263, 0.191, and 0.117. Initial BNP was 4368 and increased overnight to 4994. EKG changes showed T-wave inversions in anterior leads with T-wave flattening in the lateral leads. Patient's EKG changes and troponins are consistent with a non-ST elevation myocardial infarction. During hospitalization patient was placed on isosorbide dinitrate 20 mg 3 times a day. This morning he was started on hydralazine 10 mg 3 times a day and we held his lisinopril. Patient does not have chest pain and is off oxygen this morning. Because of his non-ST elevated CT Dr. Dotson at [facility] in [place] was consulted. She accepted the patient for transfer for further evaluation and possible intervention. I then spoke with the hospitalist Dr. Epperson who accepted the patient. Patient be transferred via EMS. - Review of Systems General: Reports: No Symptoms HEENT: Reports: No Symptoms Pulmonary: Reports: No Symptoms Cardiovascular: Reports: No Symptoms. Denies: Orthopnea, PND - Patient Data Vitals - Most Recent: Last Vital Signs Temp 98.8 F 10/01/18 08:05 Pulse 72 10/01/18 10:02 Resp 16 10/01/18 08:05 BP 135/57 L 10/01/18 10:08 Pulse Ox 94 L 10/01/18 08:05 Weight - Most Recent: 157 lb 8 oz I&O - Last 24 hours: Intake & Output 09/30/18 10/01/18 10/01/18 22:59 06:59 14:59 Intake Total 580 700 180 Output Total 400 Balance 180 700 180 Lab Results - Last 24 hrs: Laboratory Results - last 24 hr 09/30/18 09/30/18 09/30/18 Range/Units 10:58 11:50 11:50 WBC (4.23-9.07) K/mm3 RBC (4.63-6.08) M/mm3 Hgb (13.7-17.5) gm/L Hct (40.1-51.0) % MCV (79.0-92.2) fl MCH (25.7-32.2) pg MCHC (32.2-35.5) g/dl RDW Std Deviation (35.1-43.9) fL Plt Count (163-337) K/mm3 MPV (9.4-12.3) fl Neut % (Auto) (34.0-67.9) % Lymph % (Auto) (21.8-53.1) % [place] % (Auto) (5.3-12.2) % Eos % (Auto) (0.8-7.0) Baso % (Auto) (0.1-1.2) % Neut # (Auto) (1.78-5.38) K/mm3 Lymph # (Auto) (1.32-3.57) K/mm3 [place] # (Auto) (0.30-0.82) K/mm3 Eos # (Auto) (0.04-0.54) K/mm3 Baso # (Auto) (0.01-0.08) K/mm3 Sodium 141 (136-145) mEq/L Potassium 3.8 (3.5-5.1) mEq/L Chloride 106 (98-107) mEq/L Carbon Dioxide 28 (21-32) mEq/L Anion Gap 10.8 (5-15) BUN 34 H (7-18) mg/dL Creatinine 1.5 H (0.7-1.3) mg/dL Est Cr Clr Drug Dosing 38.62 mL/min Estimated GFR (MDRD) 45 (>60) mL/min BUN/Creatinine Ratio 22.7 H (14-18) Glucose 96 (83-115) mg/dL Calcium 9.0 (8.5-10.1) mg/dL Phosphorus (2.6-4.7) mg/dL Magnesium (1.8-2.4) mg/dl Total Bilirubin (0.2-1.0) mg/dL AST (15-37) U/L ALT (16-63) U/L Alkaline Phosphatase (46-116) U/L Creatine Kinase (39-308) U/L CK-MB (CK-2) 3.8 H (0-3.6) ng/ml Troponin I 0.263 H* (0.00-0.056) ng/mL NT-Pro-B Natriuret Pep (0-450) pg/mL Total Protein (6.4-8.2) g/dl Albumin (3.4-5.0) g/dl Globulin gm/dL Albumin/Globulin Ratio (1-2) Urine Color Yellow (Yellow) Urine Appearance Clear (Clear) Urine pH 6.0 (5.0-8.0) Ur Specific [place] 1.020 (1.005-1.030) Urine Protein Negative (Negative) Urine Glucose (UA) Negative (Negative) Urine Ketones Negative (Negative) Urine Occult Blood Negative (Negative) Urine Nitrite Negative (Negative) Urine Bilirubin Negative (Negative) Urine Urobilinogen 0.2 (0.2-1.0) Ur Leukocyte Esterase Negative (Negative) Urine RBC Not seen (0-5) /hpf Urine WBC 0-5 (0-5) /hpf Ur Epithelial Cells 0-5 (0-5) /hpf Urine Bacteria Few (FEW) /hpf Urine Mucus Not seen (FEW) /hpf 09/30/18 10/01/18 10/01/18 Range/Units 17:35 05:05 05:05 WBC 8.75 (4.23-9.07) K/mm3 RBC 3.74 L (4.63-6.08) M/mm3 Hgb 11.0 L (13.7-17.5) gm/L Hct 32.7 L (40.1-51.0) % MCV 87.4 (79.0-92.2) fl MCH 29.4 (25.7-32.2) pg MCHC 33.6 (32.2-35.5) g/dl RDW Std Deviation 41.7 (35.1-43.9) fL Plt Count 218 (163-337) K/mm3 MPV 11.7 (9.4-12.3) fl Neut % (Auto) 64.9 (34.0-67.9) % Lymph % (Auto) 22.4 (21.8-53.1) % [place] % (Auto) 9.7 (5.3-12.2) % Eos % (Auto) 2.4 (0.8-7.0) Baso % (Auto) 0.3 (0.1-1.2) % Neut # (Auto) 5.67 H (1.78-5.38) K/mm3 Lymph # (Auto) 1.96 (1.32-3.57) K/mm3 [place] # (Auto) 0.85 H (0.30-0.82) K/mm3 Eos # (Auto) 0.21 (0.04-0.54) K/mm3 Baso # (Auto) 0.03 (0.01-0.08) K/mm3 Sodium 139 (136-145) mEq/L Potassium 3.5 (3.5-5.1) mEq/L Chloride 104 (98-107) mEq/L Carbon Dioxide 27 (21-32) mEq/L Anion Gap 11.5 (5-15) BUN 37 H (7-18) mg/dL Creatinine 1.6 H (0.7-1.3) mg/dL Est Cr Clr Drug Dosing 36.21 mL/min Estimated GFR (MDRD) 42 (>60) mL/min BUN/Creatinine Ratio 23.1 H (14-18) Glucose 100 (83-115) mg/dL Calcium 8.5 (8.5-10.1) mg/dL Phosphorus 3.5 (2.6-4.7) mg/dL Magnesium 2.0 (1.8-2.4) mg/dl Total Bilirubin 0.5 (0.2-1.0) mg/dL AST 19 (15-37) U/L ALT 34 (16-63) U/L Alkaline Phosphatase 58 (46-116) U/L Creatine Kinase 79 (39-308) U/L CK-MB (CK-2) (0-3.6) ng/ml Troponin I 0.191 H* 0.117 H* (0.00-0.056) ng/mL NT-Pro-B Natriuret Pep (0-450) pg/mL Total Protein 5.6 L (6.4-8.2) g/dl Albumin 2.8 L (3.4-5.0) g/dl Globulin 2.8 gm/dL Albumin/Globulin Ratio 1.0 (1-2) Urine Color (Yellow) Urine Appearance (Clear) Urine pH (5.0-8.0) Ur Specific [place] (1.005-1.030) Urine Protein (Negative) Urine Glucose (UA) (Negative) Urine Ketones (Negative) Urine Occult Blood (Negative) Urine Nitrite (Negative) Urine Bilirubin (Negative) Urine Urobilinogen (0.2-1.0) Ur Leukocyte Esterase (Negative) Urine RBC (0-5) /hpf Urine WBC (0-5) /hpf Ur Epithelial Cells (0-5) /hpf Urine Bacteria (FEW) /hpf Urine Mucus (FEW) /hpf 10/01/18 Range/Units 05:05 WBC (4.23-9.07) K/mm3 RBC (4.63-6.08) M/mm3 Hgb (13.7-17.5) gm/L Hct (40.1-51.0) % MCV (79.0-92.2) fl MCH (25.7-32.2) pg MCHC (32.2-35.5) g/dl RDW Std Deviation (35.1-43.9) fL Plt Count (163-337) K/mm3 MPV (9.4-12.3) fl Neut % (Auto) (34.0-67.9) % Lymph % (Auto) (21.8-53.1) % [place] % (Auto) (5.3-12.2) % Eos % (Auto) (0.8-7.0) Baso % (Auto) (0.1-1.2) % Neut # (Auto) (1.78-5.38) K/mm3 Lymph # (Auto) (1.32-3.57) K/mm3 [place] # (Auto) (0.30-0.82) K/mm3 Eos # (Auto) (0.04-0.54) K/mm3 Baso # (Auto) (0.01-0.08) K/mm3 Sodium (136-145) mEq/L Potassium (3.5-5.1) mEq/L Chloride (98-107) mEq/L Carbon Dioxide (21-32) mEq/L Anion Gap (5-15) BUN (7-18) mg/dL Creatinine (0.7-1.3) mg/dL Est Cr Clr Drug Dosing mL/min Estimated GFR (MDRD) (>60) mL/min BUN/Creatinine Ratio (14-18) Glucose (83-115) mg/dL Calcium (8.5-10.1) mg/dL Phosphorus (2.6-4.7) mg/dL Magnesium (1.8-2.4) mg/dl Total Bilirubin (0.2-1.0) mg/dL AST (15-37) U/L ALT (16-63) U/L Alkaline Phosphatase (46-116) U/L Creatine Kinase (39-308) U/L CK-MB (CK-2) (0-3.6) ng/ml Troponin I (0.00-0.056) ng/mL NT-Pro-B Natriuret Pep 4994 H (0-450) pg/mL Total Protein (6.4-8.2) g/dl Albumin (3.4-5.0) g/dl Globulin gm/dL Albumin/Globulin Ratio (1-2) Urine Color (Yellow) Urine Appearance (Clear) Urine pH (5.0-8.0) Ur Specific [place] (1.005-1.030) Urine Protein (Negative) Urine Glucose (UA) (Negative) Urine Ketones (Negative) Urine Occult Blood (Negative) Urine Nitrite (Negative) Urine Bilirubin (Negative) Urine Urobilinogen (0.2-1.0) Ur Leukocyte Esterase (Negative) Urine RBC (0-5) /hpf Urine WBC (0-5) /hpf Ur Epithelial Cells (0-5) /hpf Urine Bacteria (FEW) /hpf Urine Mucus (FEW) /hpf Med Orders - Current: Current Medications Acetaminophen (Tylenol) 650 mg PO Q4H PRN PRN Reason: Pain (Mild 1-3)/fever Amlodipine Besylate (Norvasc) 5 mg PO DAILY [facility] Last Admin: 10/01/18 10:07 Dose: 5 mg Aspirin (Halfprin) 81 mg PO DAILY [facility] Last Admin: 10/01/18 10:06 Dose: 81 mg Bisacodyl (Dulcolax) 5 mg PO DAILY PRN PRN Reason: Constipation Docusate Sodium (Colace) 100 mg PO BID PRN PRN Reason: Constipation Enoxaparin Sodium (Lovenox) 40 mg SUBCUT DAILY [facility] Last Admin: 10/01/18 10:09 Dose: 40 mg Furosemide (Lasix) 40 mg PO DAILY PRN PRN Reason: Shortness of Breath Hydralazine HCl (Apresoline) 10 mg PO Q8HR [facility] Last Admin: 10/01/18 10:07 Dose: 10 mg Isosorbide Dinitrate (Isordil) 20 mg PO TID [facility] Last Admin: 10/01/18 10:08 Dose: 20 mg Metoprolol Tartrate (Lopressor) 25 mg PO BID [facility] Last Admin: 10/01/18 10:02 Dose: 25 mg Sertraline HCl (Zoloft) 50 mg PO DAILY [facility] Last Admin: 10/01/18 10:06 Dose: 50 mg Simvastatin (Zocor) 20 mg PO DAILY [facility] Last Admin: 10/01/18 10:05 Dose: 20 mg Sodium Chloride (Saline Flush) 10 ml FLUSH ASDIRECTED PRN PRN Reason: Keep Vein Open Last Admin: 09/30/18 05:13 Dose: 10 ml Temazepam (Restoril) 7.5 mg PO BEDTIME PRN PRN Reason: Sleep Last Admin: 09/30/18 21:46 Dose: 7.5 mg Discontinued Medications Clopidogrel Bisulfate (Plavix) 300 mg PO ONETIME ONE Stop: 10/01/18 09:25 Last Admin: 10/01/18 10:02 Dose: 300 mg Furosemide (Lasix) 40 mg IVPUSH NOW ONE Stop: 09/30/18 05:05 Last Admin: 09/30/18 05:13 Dose: 40 mg Furosemide (Lasix) 20 mg IVPUSH NOW ONE Stop: 09/30/18 13:23 Last Admin: 09/30/18 13:43 Dose: 20 mg Hydralazine HCl (Apresoline) 10 mg PO Q8H [facility] Magnesium Sulfate 2 gm/ Premix 50 mls @ 25 mls/hr IV ONETIME ONE Stop: 09/30/18 14:07 Last Admin: 09/30/18 12:47 Dose: 25 mls/hr Lisinopril (Prinivil) 20 mg PO DAILY CARLIE - Exam General: Reports: Alert, Oriented, Cooperative Neck: Reports: Supple, Trachea Midline Lungs: Reports: Clear to Auscultation, Normal Respiratory Effort Cardiovascular: Reports: Regular Rate, Regular Rhythm, Murmurs (Holosystolic murmur) Extremities: Normal Inspection, No Pedal Edema, Normal Capillary Refill EKG INTERPRETATION EKG Date: 10/01/18 Rhythm: NSR (Early repolarization in V1 and V2. T-wave inversion in V3 and V4. T -wave flattening in leads V5 and 6.) Discharge Operative/Procedures - Procedures Performed Operations/Procedure Comment: Echocardiogram was performed results were not obtained.
[2018-10-01 11:59] VITALS: BP 108/40
== END 2018-10-01 12:45 | DRG 280 ==
LOC: JD.ED 04:45 → JD.MS 07:53
PROVIDERS: ADMIT Family Medicine; ATTEND Family Medicine
DX: I21.4 Non-ST elevation (NSTEMI) myocardial infarction (principal); I50.31 Acute diastolic (congestive) heart failure; I13.0 Hypertensive heart and chronic kidney disease with heart failure and stage 1 through stage 4 chronic kidney disease, or unspecified chronic kidney disease; N18.3 Chronic kidney disease, stage 3 (moderate); R06.03 Acute respiratory distress; E83.42 Hypomagnesemia; I25.10 Atherosclerotic heart disease of native coronary artery without angina pectoris; E78.00 Pure hypercholesterolemia, unspecified; F41.9 Anxiety disorder, unspecified; R09.02 Hypoxemia; F32.9 Major depressive disorder, single episode, unspecified; H91.90 Unspecified hearing loss, unspecified ear; K59.00 Constipation, unspecified; Z95.2 Presence of prosthetic heart valve; H54.7 Unspecified visual loss; Z95.1 Presence of aortocoronary bypass graft; Z79.899 Other long term (current) drug therapy; Z79.82 Long term (current) use of aspirin; R35.0 Frequency of micturition; M54.2 Cervicalgia; M25.519 Pain in unspecified shoulder; R06.02 Shortness of breath; R05 Cough; R53.1 Weakness; R63.0 Anorexia; R53.81 Other malaise; R07.9 Chest pain, unspecified; R53.83 Other fatigue; R06.00 Dyspnea, unspecified; M54.9 Dorsalgia, unspecified; Z87.891 Personal history of nicotine dependence; Z95.3 Presence of xenogenic heart valve
CPT/HCPCS: 36415; 71045; 80053; 82553; 83735; 83880; 84484; 85007; 85027; 85610; 85730; 93005; 96374; 99285; J1940; 80048; 81001; 82550; 84100; 85025; 93010; 93306; A9270-GY; J1650; J3475

== ENCOUNTER 2018-10-20 00:03 | Emergency (ER) | payer MEDICARE, OTHER ==
[2018-10-20 00:10] VITALS: BP 191/63
[2018-10-20] MEDS ORDERED: Sodium Chloride 0.9% 10 ML Syringe FLUSH PRN (00:25)
--- NOTE | 2018-10-20 01:41 | EDM.PDOC ---
ED HPI GENERAL MEDICAL PROBLEM - General Chief Complaint: Respiratory Problem Stated Complaint: SOB Time Seen by Provider: 10/20/18 00:10 Source of Information: Reports: Patient, Family History Limitations: Reports: No Limitations - History of Present Illness INITIAL COMMENTS - FREE TEXT/NARRATIVE: The patient presents with shortness of breath. This started just before arrival. The patient was admitted here 3 weeks ago for shortness of breath and he was sent to [place] where he was found to have a bad aortic valve. He is going to have the TAVR procedure November 14. He has some preop appointments in the mean time. He is on lasix. He denies any chest pain. He has no fever or chills. He may have a slight cough at times. He has no swelling in his legs. He has no abdominal pain, nausea or vomiting. Onset: Sudden Duration: Minutes: Severity: Moderate Improves with: Reports: None Worsens with: Reports: None Associated Symptoms: Reports: Cough, Shortness of Breath. Denies: Chest Pain, Fever/Chills, Headaches, Nausea/Vomiting - Related Data Allergies Allergy/AdvReac Type Severity Reaction Status Date / Time No Known Allergies Allergy Verified 10/20/18 00:46 Home Meds: Home Meds Aspirin [Halfprin] 81 mg PO DAILY 09/06/17 [History] Metoprolol Tartrate 20 mg PO BID 09/06/17 [History] Simvastatin 20 mg PO DAILY 09/06/17 [History] Sertraline [Zoloft] 50 mg PO DAILY 09/30/18 [History] Furosemide [Lasix] 40 mg PO DAILY tablet 10/01/18 [Rx] amLODIPine Besylate [Amlodipine Besylate] 5 mg PO DAILY 10/20/18 [History] hydrALAZINE [Apresoline] 10 mg PO DAILY 10/20/18 [History] Past Medical History HEENT History: Reports: Impaired Vision Other HEENT History: Wears glasses Cardiovascular History: Reports: Bypass, Heart Murmur, High Cholesterol, Hypertension, Other (See Below) Other Cardiovascular History: aortic stenosis with bovine valve replacement in 2002 Respiratory History: Reports: None, Other (See Below) Other Respiratory History: Pleural effusion Gastrointestinal History: Reports: Hemorrhoids, Other (See Below) Other Gastrointestinal History: has been having more gas/upset stomach recently Neurological History: Reports: None Psychiatric History: Reports: Depression Endocrine/Metabolic History: Reports: None Oncologic (Cancer) History: Reports: Other (See Below) Other Oncologic History: 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 - Past Surgical History Head Surgeries/Procedures: Reports: None HEENT Surgical History: Reports: Cataract Surgery, Tonsillectomy Cardiovascular Surgical History: Reports: Coronary Artery Bypass, Valve Replacement GI Surgical History: Reports: Colonoscopy, EGD, Hernia, Inguinal Male Surgical History: Reports: None Musculoskeletal Surgical History: Reports: None Dermatological Surgical History: Reports: None Social & Family History - Family History Family Medical History: Noncontributory - Tobacco Use Smoking Status *Q: Former Smoker Used Tobacco, but Quit: Yes Month/Year Tobacco Last Used: 2008 - Caffeine Use Caffeine Use: Reports: Coffee - Recreational Drug Use Recreational Drug Use: No - Living Situation & Occupation Living situation: Reports: Occupation: Employed ED ROS GENERAL - Review of Systems Review Of Systems: See Below Constitutional: Reports: No Symptoms HEENT: Reports: No Symptoms Respiratory: Reports: Shortness of Breath, Cough Cardiovascular: Reports: No Symptoms Endocrine: Reports: No Symptoms GI/Abdominal: Reports: No Symptoms : Reports: No Symptoms ED EXAM, GENERAL - Physical Exam Exam: See Below Exam Limited By: No Limitations General Appearance: Alert, No Apparent Distress Ears: Normal External Exam Nose: Normal Inspection Head: Atraumatic, Normocephalic Neck: Normal Inspection Respiratory/Chest: No Respiratory Distress, Decreased Breath Sounds, Rales ( fine rales at the bases) Cardiovascular: Regular Rate, Rhythm, No Edema, No Murmur GI/Abdominal: Soft, Non-Tender, No Organomegaly, No Mass Back Exam: Normal Inspection Extremities: Normal Inspection Neurological: Alert, No Motor/Sensory Deficits EKG INTERPRETATION EKG Date: 10/20/18 Time: 00:31 Rhythm: NSR Rate (Beats/Min): 74 [place]: LAD-Left [place] Deviation P-Wave: Present QRS: LBBB ST-T: Normal QT: Normal Course - Vital Signs Last Recorded V/S: Last Vital Signs Temp 98.2 F 10/20/18 00:07 Pulse 104 H 10/20/18 00:07 Resp 30 H 10/20/18 00:07 BP 191/63 H 10/20/18 00:07 Pulse Ox 93 L 10/20/18 00:07 - Orders/Labs/Meds Orders: Active Orders 24 hr Category Date Time Status Cardiac Monitoring [RC] . DIRECTED Care 10/20/18 00:25 Active EKG Documentation Completion [RC] STAT Care 10/20/18 00:25 Active Oxygen Therapy [RC] PRN Care 10/20/18 00:25 Active Peripheral IV Care [RC] . DIRECTED Care 10/20/18 00:25 Active Chest 1V Frontal [CR] Stat Exams 10/20/18 00:26 Taken Sodium Chloride 0.9% [Saline Flush] Med 10/20/18 00:25 Active 10 ml FLUSH ASDIRECTED PRN Peripheral IV Insertion Adult [OM.PC] Stat Oth 10/20/18 00:25 Ordered Medication Orders Sodium Chloride (Saline Flush) 10 ml FLUSH ASDIRECTED PRN PRN Reason: Keep Vein Open Last Admin: 10/20/18 00:45 Dose: 10 ml Labs: Laboratory Tests 10/20/18 10/20/18 10/20/18 Range/Units 00:39 00:39 00:39 WBC 9.49 H (4.23-9.07) K/mm3 RBC 4.41 L (4.63-6.08) M/mm3 Hgb 12.9 L (13.7-17.5) gm/L Hct 38.8 L (40.1-51.0) % MCV 88.0 (79.0-92.2) fl MCH 29.3 (25.7-32.2) pg MCHC 33.2 (32.2-35.5) g/dl RDW Std Deviation 43.7 (35.1-43.9) fL Plt Count 192 (163-337) K/mm3 MPV 11.8 (9.4-12.3) fl Neut % (Auto) 73.0 H (34.0-67.9) % Lymph % (Auto) 17.5 L (21.8-53.1) % [place] % (Auto) 7.0 (5.3-12.2) % Eos % (Auto) 2.1 (0.8-7.0) Baso % (Auto) 0.3 (0.1-1.2) % Neut # (Auto) 6.93 H (1.78-5.38) K/mm3 Lymph # (Auto) 1.66 (1.32-3.57) K/mm3 [place] # (Auto) 0.66 (0.30-0.82) K/mm3 Eos # (Auto) 0.20 (0.04-0.54) K/mm3 Baso # (Auto) 0.03 (0.01-0.08) K/mm3 Sodium 141 (136-145) mEq/L Potassium 3.5 (3.5-5.1) mEq/L Chloride 104 (98-107) mEq/L Carbon Dioxide 29 (21-32) mEq/L Anion Gap 11.5 (5-15) BUN 33 H (7-18) mg/dL Creatinine 1.5 H (0.7-1.3) mg/dL Est Cr Clr Drug Dosing 38.62 mL/min Estimated GFR (MDRD) 45 (>60) mL/min BUN/Creatinine Ratio 22.0 H (14-18) Glucose 121 H (83-115) mg/dL Calcium 9.3 (8.5-10.1) mg/dL Total Bilirubin 0.4 (0.2-1.0) mg/dL AST 22 (15-37) U/L ALT 26 (16-63) U/L Alkaline Phosphatase 70 (46-116) U/L Troponin I < 0.017 (0.00-0.056) ng/mL NT-Pro-B Natriuret Pep 4538 H (0-450) pg/mL Total Protein 6.7 (6.4-8.2) g/dl Albumin 3.4 (3.4-5.0) g/dl Globulin 3.3 gm/dL Albumin/Globulin Ratio 1.0 (1-2) Meds: Medications Generic Name Dose Route Start Last Admin Trade Name Freq PRN Reason Stop Dose Admin Sodium Chloride 10 ml 10/20/18 00:25 10/20/18 00:45 Saline Flush FLUSH 10 ml ASDIRECTED PRN Administration Keep Vein Open - Re-Assessments/Exams Free Text/Narrative Re-Assessment/Exam: 10/20/18 01:40 I ordered oxygen, IV saline lock, EKG, CXR and labs. His EKG shows a LBBB with no acute changes. His CXR shows cardiomegaly with stable congestive changes. His WBC was elevated at 9.49. His Hgb was 12.9. His creatinine was elevated at 1.5. His glucose was elevated at 121. His troponin was negative. His BNP was 4538. 10/20/18 02:04 He is feeling much better. I feel he can go home. I would like to order him home oxygen. This will be short term until he has his valve replaced. I will write the order. Departure - Departure Time of Disposition: 02:05 Disposition: Home, Self-Care 01 Condition: Good Clinical Impression: Shortness of breath Congestive heart failure Qualifiers: Heart failure type: unspecified Heart failure chronicity: chronic Qualified Code(s): I50.9 - Heart failure, unspecified - Discharge Information *PRESCRIPTION DRUG MONITORING PROGRAM REVIEWED*: Not Applicable *COPY OF PRESCRIPTION DRUG MONITORING REPORT IN PATIENT JESSI: Not Applicable Referrals: Nash Gray MD [Primary Care Provider] - 1 Week Forms: ED Department Discharge Additional Instructions: Continue taking your medications as prescribed. Please return if you are worse. I have written an order for home oxygen. Try to get that filled at [facility] in [place]. - My Orders Last 24 Hours: My Active Orders 10/20/18 00:25 Cardiac Monitoring [RC] . DIRECTED EKG Documentation Completion [RC] STAT Oxygen Therapy [RC] PRN Peripheral IV Care [RC] . DIRECTED Sodium Chloride 0.9% [Saline Flush] 10 ml FLUSH ASDIRECTED PRN Peripheral IV Insertion Adult [OM.PC] Stat 10/20/18 00:26 Chest 1V Frontal [CR] Stat - Assessment/Plan Last 24 Hours: My Active Orders 10/20/18 00:25 Cardiac Monitoring [RC] . DIRECTED EKG Documentation Completion [RC] STAT Oxygen Therapy [RC] PRN Peripheral IV Care [RC] . DIRECTED Sodium Chloride 0.9% [Saline Flush] 10 ml FLUSH ASDIRECTED PRN Peripheral IV Insertion Adult [OM.PC] Stat 10/20/18 00:26 Chest 1V Frontal [CR] Stat
--- NOTE | 2018-10-20 10:59 | CR ---
Chest: Portable view of the chest was obtained. Comparison: Prior chest x-ray of 10/01/18 and 09/30/18. Pulmonary vessels are diffusely congested. Findings may be slightly increased from previous exam. Heart size at the upper limits of normal but less prominent than on most recent exam. Tortuous thoracic aorta is seen. Sternotomy wires are seen. Impression: 1. Pulmonary vascular congestion slightly increased from prior exam. 2. Decreased heart size from previous study. Diagnostic code #3
== END 2018-10-20 02:20 | disposition home or self-care (01) ==
LOC: JD.ED 00:03
DX: I11.0 Hypertensive heart disease with heart failure (principal); I50.9 Heart failure, unspecified; F32.9 Major depressive disorder, single episode, unspecified; Z87.891 Personal history of nicotine dependence; Z79.899 Other long term (current) drug therapy
CPT/HCPCS: 36415; 71045; 71045-26; 80053; 83880; 84484; 85025; 93005; 93010; 99284; 99285-25

== ENCOUNTER 2018-10-26 17:10 | Observation (INO) | payer MEDICARE, OTHER ==
[~2018-10-26 17:10] MED LIST: FUROSEMIDE 40 MG PO SCH
--- NOTE | 2018-10-26 18:10 | EDM.PDOC ---
ED HPI GENERAL MEDICAL PROBLEM - General Chief Complaint: Respiratory Problem Stated Complaint: [facility] Time Seen by Provider: 10/26/18 17:24 Source of Information: Reports: Patient, Family (), RN Notes Reviewed History Limitations: Reports: No Limitations - History of Present Illness INITIAL COMMENTS - FREE TEXT/NARRATIVE: The patient states that he has felt short of breath, even at rest, for the past 3-4 days. He denies orthopnea. He states that he developed a dry cough today, although he denies having fever. No recent chest pain or palpitations. He states that he has felt bloated for the past 2 days, and reports that he has been constipated for the past 3 days. He states that he had paroxysmal nocturnal dyspnea about 3 weeks ago. Medical records indicate that he was seen in this ED on 09/30/2018, and found to be in congestive heart failure. He was admitted, but subsequently transferred to [facility] the following day, 10/01/2018. He states that he was discharged home the next day, but subsequently underwent an echocardiogram that found that his bovine aortic valve replacement is in bad shape, requiring replacement. The patient states that he is scheduled to undergo a coronary angiogram this coming 10/29/2018, in preparation for a TAVR currently scheduled for 11/14/2018. The patient states that he was seen at the walk-in clinic 3 days ago for constipation. He states that no tests were done, but he was advised to take Colace, which he did, then had a bowel movement the next day, however, he states that he still feels bloated. No nausea or vomiting. No urinary symptoms. Here in the ED, sitting on the gurney, the patient states that his breathing feels somewhat better. His oxygen saturation is 92% on room air. The patient's PCP is Dr. Rodrigues. His Facility Rehab Director is Dr. Martinez. - Related Data Allergies Allergy/AdvReac Type Severity Reaction Status Date / Time No Known Allergies Allergy Verified 10/26/18 17:28 Home Meds: Home Meds Aspirin [Halfprin] 81 mg PO DAILY 09/06/17 [History] Metoprolol Tartrate 25 mg PO BID 09/06/17 [History] Simvastatin 20 mg PO DAILY 09/06/17 [History] Sertraline [Zoloft] 50 mg PO DAILY 09/30/18 [History] amLODIPine Besylate [Amlodipine Besylate] 5 mg PO DAILY 10/20/18 [History] Furosemide [Lasix] 20 mg PO ASDIRECTED 10/26/18 [History] Furosemide [Lasix] 40 mg PO QAM 10/26/18 [History] Lisinopril [Prinivil] 20 mg PO DAILY 10/26/18 [History] Past Medical History HEENT History: Reports: Impaired Vision Other HEENT History: Wears glasses Cardiovascular History: Reports: CAD, Heart Failure, High Cholesterol, Hypertension, Other (See Below) (Aortic stenosis of bovine AVR) Gastrointestinal History: Reports: Hemorrhoids Genitourinary History: Reports: Chronic Renal Insuffiency Psychiatric History: Reports: Depression Oncologic (Cancer) History: Reports: Basal Cell Carcinoma (face) - Past Surgical History HEENT Surgical History: Reports: Cataract Surgery, Tonsillectomy Cardiovascular Surgical History: Reports: Coronary Artery Bypass (x 3 vessel, 2002), Valve Replacement (Bovine AVR 2002) GI Surgical History: Reports: Colonoscopy (x around 3), EGD (x around 3), Hernia , Inguinal (bilateral) Social & Family History - Family History Family Medical History: Noncontributory - Tobacco Use Smoking Status *Q: Former Smoker Years of Tobacco use: 66 Packs/Tins Daily: 1 Month/Year Tobacco Last Used: Quit 2005 - Caffeine Use Caffeine Use: Reports: None - Alcohol Use Alcohol Use History: No - Recreational Drug Use Recreational Drug Use: No - Living Situation & Occupation Living situation: Reports: , with Spouse Occupation: Retired ED ROS GENERAL - Review of Systems Review Of Systems: ROS reveals no pertinent complaints other than HPI. ED EXAM, GENERAL - Physical Exam Exam: See Below Exam Limited By: No Limitations General Appearance: Alert, WD/WN, No Apparent Distress Eye Exam: Bilateral Eye: EOMI, Normal Inspection Ears: Normal External Exam, Hearing Grossly Normal Nose: Normal Inspection Throat/Mouth: Normal Inspection, Normal Lips, Normal Voice, No Airway Compromise Head: Atraumatic, Normocephalic Neck: Normal Inspection, Full Range of Motion Respiratory/Chest: No Respiratory Distress, Lungs Clear, Normal Breath Sounds, No Accessory Muscle Use, Decreased Breath Sounds (bibasilar), Rhonchi (scattered ). No: Crackles, Wheezing, Prolonged Expiration Cardiovascular: Normal Peripheral Pulses, Regular Rate, Rhythm, No Gallop, No JVD, No Murmur, No Rub Peripheral Pulses: 4+: Radial (L), Radial (R) GI/Abdominal: Normal Bowel Sounds, Soft, Non-Tender, No Organomegaly, No Distention, No Abnormal Bruit, No Mass (Male) Exam: Deferred Rectal (Males) Exam: Deferred Back Exam: Normal Inspection, Full Range of Motion, NT Extremities: Normal Inspection, Normal Range of Motion, Normal Capillary Refill , Other (Trace bilateral pitting pretibial edema) Neurological: Alert, Oriented, Normal Cognition, No Motor/Sensory Deficits Psychiatric: Normal Affect Skin Exam: Warm, Dry, Intact, Normal Color, No Rash EKG INTERPRETATION EKG Date: 10/26/18 Time: 17:33 Rhythm: NSR Rate (Beats/Min): 87 [place]: Normal (Borderline LAD) P-Wave: Enlarged (+LAE, possible NIRANJAN) QRS: Normal (+LVH) ST-T: Normal QT: Prolonged (QTc 486 ms) Comparison: No Change (10/20/2018) Course - Vital Signs Last Recorded V/S: Last Vital Signs Temp 37.7 C 10/26/18 17:21 Pulse 99 10/26/18 17:21 Resp 21 H 10/26/18 17:21 BP 168/51 H 10/26/18 17:21 Pulse Ox 92 L 10/26/18 17:21 - Orders/Labs/Meds Orders: Active Orders 24 hr Category Date Time Status EKG Documentation Completion [RC] STAT Care 10/26/18 18:05 Active Chest 2V [CR] Stat Exams 10/26/18 18:05 Taken Labs: Laboratory Tests 10/26/18 10/26/18 10/26/18 Range/Units 18:18 18:18 18:18 WBC 8.53 (4.23-9.07) K/mm3 RBC 4.54 L (4.63-6.08) M/mm3 Hgb 13.2 L (13.7-17.5) gm/L Hct 39.8 L (40.1-51.0) % MCV 87.7 (79.0-92.2) fl MCH 29.1 (25.7-32.2) pg MCHC 33.2 (32.2-35.5) g/dl RDW Std Deviation 43.4 (35.1-43.9) fL Plt Count 226 (163-337) K/mm3 MPV 11.3 (9.4-12.3) fl Neutrophils % (Manual) 76 H (40-60) % Band Neutrophils % 0 (0-10) % Lymphocytes % (Manual) 20 (20-40) % Atypical Lymphs % 0 % Monocytes % (Manual) 3 (2-10) % Eosinophils % (Manual) 1 (0.8-7.0) % Basophils % (Manual) 0 L (0.2-1.2) Platelet Estimate Adequate RBC Morph Comment Normal D-Dimer, Quantitative 0.80 H (0.19-0.50) mg/L Sodium 141 (136-145) mEq/L Potassium 3.5 (3.5-5.1) mEq/L Chloride 105 (98-107) mEq/L Carbon Dioxide 28 (21-32) mEq/L Anion Gap 11.5 (5-15) BUN 25 H (7-18) mg/dL Creatinine 1.4 H (0.7-1.3) mg/dL Est Cr Clr Drug Dosing 41.38 mL/min Estimated GFR (MDRD) 49 (>60) mL/min BUN/Creatinine Ratio 17.9 (14-18) Glucose 118 H (83-115) mg/dL Calcium 9.3 (8.5-10.1) mg/dL Total Bilirubin 0.5 (0.2-1.0) mg/dL AST 21 (15-37) U/L ALT 25 (16-63) U/L Alkaline Phosphatase 71 (46-116) U/L Troponin I 0.092 H* (0.00-0.056) ng/mL NT-Pro-B Natriuret Pep (0-450) pg/mL Total Protein 6.8 (6.4-8.2) g/dl Albumin 3.5 (3.4-5.0) g/dl Globulin 3.3 gm/dL Albumin/Globulin Ratio 1.1 (1-2) 10/26/18 Range/Units 18:18 WBC (4.23-9.07) K/mm3 RBC (4.63-6.08) M/mm3 Hgb (13.7-17.5) gm/L Hct (40.1-51.0) % MCV (79.0-92.2) fl MCH (25.7-32.2) pg MCHC (32.2-35.5) g/dl RDW Std Deviation (35.1-43.9) fL Plt Count (163-337) K/mm3 MPV (9.4-12.3) fl Neutrophils % (Manual) (40-60) % Band Neutrophils % (0-10) % Lymphocytes % (Manual) (20-40) % Atypical Lymphs % % Monocytes % (Manual) (2-10) % Eosinophils % (Manual) (0.8-7.0) % Basophils % (Manual) (0.2-1.2) Platelet Estimate RBC Morph Comment D-Dimer, Quantitative (0.19-0.50) mg/L Sodium (136-145) mEq/L Potassium (3.5-5.1) mEq/L Chloride (98-107) mEq/L Carbon Dioxide (21-32) mEq/L Anion Gap (5-15) BUN (7-18) mg/dL Creatinine (0.7-1.3) mg/dL Est Cr Clr Drug Dosing mL/min Estimated GFR (MDRD) (>60) mL/min BUN/Creatinine Ratio (14-18) Glucose (83-115) mg/dL Calcium (8.5-10.1) mg/dL Total Bilirubin (0.2-1.0) mg/dL AST (15-37) U/L ALT (16-63) U/L Alkaline Phosphatase (46-116) U/L Troponin I (0.00-0.056) ng/mL NT-Pro-B Natriuret Pep 7914 H (0-450) pg/mL Total Protein (6.4-8.2) g/dl Albumin (3.4-5.0) g/dl Globulin gm/dL Albumin/Globulin Ratio (1-2) Meds: Medications Discontinued Medications Generic Name Dose Route Start Last Admin Trade Name Reddq PRN Reason Stop Dose Admin Furosemide 40 mg 10/26/18 19:17 10/26/18 19:27 Lasix IVPUSH 10/26/18 19:18 40 mg NOW ONE Administration - Re-Assessments/Exams Free Text/Narrative Re-Assessment/Exam: 10/26/18 18:08 I suspect, based on the patient's history of physical examination, that his shortness of breath is related to his severe aortic stenosis. Here in the ED, resting on the gurney, he states that his breathing is feeling better, and his oxygen saturation is 92% on room air. I suspect, however, that with exertion, his aortic valve disallows adequate cardiac output, leading to his generalized weakness, and, likely, some degree of congestive heart failure. For today's purposes, I have ordered blood work, a chest x-ray, and an ECG to evaluate for acute medical issues that I can address. 10/26/18 19:15 2-view chest radiograph reviewed. The cardiac silhouette is within normal limits , however, there is pulmonary vascular congestion and possibly bilateral pleural effusions, consistent with decompensated CHF. No focal infiltrate. No pneumothorax. Sternotomy wires incidentally noted. Formal read per the Radiologist pending. Based on the chest x-ray findings, I will order 40 mg IV furosemide. 10/26/18 19:22 The patient's CBC is unremarkable. The patient's BUN/Cr is elevated at 25/1.4, which appears to be chronic. The remainder of the CMP is unremarkable. The patient's D-dimer is slightly elevated at 0.80. His troponin is mildly elevated at 0.092, likely secondary to the renal insufficiency. The patient's BNP is elevated at 7914. It was 4538 on 10/20/2018. As above, it appears that the patient is suffering from decompensated CHF. 10/26/18 19:29 Test results discussed with the patient and his . I offered to place the patient into observation for diuresis until comfortable, and the patient has agreed. 10/26/18 19:[address] Rodrigues at 19:48. He agreed to place the patient into observation. Departure - Departure Time of Disposition: 19:49 Disposition: Home, Self-Care 01 Condition: Fair Clinical Impression: Aortic stenosis, Chronic renal insufficiency CHF exacerbation Qualifiers: Heart failure type: unspecified Qualified Code(s): I50.9 - Heart failure, unspecified - Discharge Information *PRESCRIPTION DRUG MONITORING PROGRAM REVIEWED*: Not Applicable *COPY OF PRESCRIPTION DRUG MONITORING REPORT IN PATIENT JESSI: Not Applicable - My Orders Last 24 Hours: My Active Orders 10/26/18 18:05 EKG Documentation Completion [RC] STAT Chest 2V [CR] Stat - Assessment/Plan Last 24 Hours: My Active Orders 10/26/18 18:05 EKG Documentation Completion [RC] STAT Chest 2V [CR] Stat
[2018-10-26] MEDS ORDERED: Furosemide 40 MG/4 ML VIAL IVPUSH ONE (19:17)
--- NOTE | 2018-10-26 23:04 | PCM.HP ---
H&P History of Present Illness - General Date of Service: 10/26/18 Admit Problem/Dx: Admission Diagnosis/Problem Admission Diagnosis/Problem Congestive heart failure Source of Information: Patient, Family, Old Records, Provider, RN Notes Reviewed History Limitations: Reports: No Limitations - History of Present Illness Initial Comments - Free Text/Narative: This is an 82 yo elderly white male with past medical hx/o Impaired Vision, CAD S/p x 3 Vessel CABG in 2002, HTN, HLD, HF with Preserved EF of 60-65% 10/01/2018 , Hx/o S/p Bovine AVR in 2002, CKD Stage 3, Hemorrhoids and Depression who comes in for worsening shortness of breath associated with Dyspnea, weight gain , dry cough and PND-3 weeks ago. He denies any chest pain, shortness of breath or heart palpitations. He also states he feels bloated in the past couple of days and has been constipated for a few days now. He was initially seen at the walk in clinic 3 days ago for constipation but was told to take Colace for bowel movement. He did fine after that but now reports feeling bloated. Patient had a similar episode about on 09/30/18 and was diagnosed with heart failure but was transferred to [place] for upper level of care. In [place] he received medical treatment and a 2D echo but was discharged the following day. He states that his Aortic valve replacement went bad and therefore he is requiring replacement. He is scheduled to have some type of a cardiac invasive procedure Monday10/29/2018 in preparation of his scheduled valvular surgery on November 14. His initial work up in ED shows a CBC remarkable for RBC of 4.54, Hgb of 13.2, Hct of 39.8, and Neutrophils of 76%. His D-Dimer is 0.80. His Chemistry is significant for BUN of 25, Cr of 1.4, BS of 118, troponin of 0.092, ProNP of 7914. His chest x-ray shows bilateral pleural effusions and increased vascular markings. Patient is being admitted for acute congestive heart failure secondary to failing aortic valve replacement. He is full code. - Related Data Allergies/Adverse Reactions: Allergies Allergy/AdvReac Type Severity Reaction Status Date / Time No Known Allergies Allergy Verified 10/26/18 23:02 Home Medications: Home Meds Aspirin [Halfprin] 81 mg PO DAILY 09/06/17 [History] Metoprolol Tartrate 25 mg PO BID 09/06/17 [History] Simvastatin 20 mg PO DAILY 09/06/17 [History] Sertraline [Zoloft] 50 mg PO DAILY 09/30/18 [History] amLODIPine Besylate [Amlodipine Besylate] 5 mg PO DAILY 10/20/18 [History] Furosemide [Lasix] 20 mg PO ASDIRECTED 10/26/18 [History] Furosemide [Lasix] 40 mg PO QAM 10/26/18 [History] Iron,Carbonyl/Vit C/Vit B12/Fa [Iron 100 Plus Tablet] 65 mg PO DAILY 10/26/18 [ History] Past Medical History HEENT History: Reports: Impaired Vision Other HEENT History: Wears glasses Cardiovascular History: Reports: CAD, Heart Failure, High Cholesterol, Hypertension, Other (See Below) (Aortic stenosis of bovine AVR) Other Cardiovascular History: aortic stenosis with bovine valve replacement in 2002 Respiratory History: Reports: None, Other (See Below) Other Respiratory History: Pleural effusion Gastrointestinal History: Reports: Hemorrhoids Other Gastrointestinal History: has been having more gas/upset stomach recently Genitourinary History: Reports: Chronic Renal Insuffiency Neurological History: Reports: None Psychiatric History: Reports: Depression Endocrine/Metabolic History: Reports: None Oncologic (Cancer) History: Reports: Basal Cell Carcinoma (face) Other Oncologic History: 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 - Past Surgical History HEENT Surgical History: Reports: Cataract Surgery, Tonsillectomy Cardiovascular Surgical History: Reports: Coronary Artery Bypass (x 3 vessel, 2002), Valve Replacement (Bovine AVR 2002) GI Surgical History: Reports: Colonoscopy (x around 3), EGD (x around 3), Hernia , Inguinal (bilateral) Social & Family History - Family History Family Medical History: Noncontributory - Tobacco Use Smoking Status *Q: Former Smoker Years of Tobacco use: 66 Packs/Tins Daily: 1 Used Tobacco, but Quit: Yes Month/Year Tobacco Last Used: Quit 2005 - Caffeine Use Caffeine Use: Reports: None - Recreational Drug Use Recreational Drug Use: No - Living Situation & Occupation Living situation: Reports: , with Spouse Occupation: Retired H&P Review of Systems - Review of Systems: Review Of Systems: See Below General: Denies: Fever, Chills, Malaise, Weakness, Fatigue HEENT: Reports: No Symptoms Pulmonary: Reports: Shortness of Breath, Cough. Denies: Wheezing, Pleuritic Chest Pain, Hemoptysis Cardiovascular: Reports: PND. Denies: Chest Pain, Dyspnea on Exertion, Lightheadedness, Syncope, Claudication, Blood Pressure Problem Gastrointestinal: Reports: Constipation, Flatus, Other (bloated). Denies: Abdominal Pain, Anorexia, Black Stool, Bloody Stool, Decreased Appetite, Distension, Hematochezia, Mucous in Stool, Nausea, Stool Incontinence Genitourinary: Reports: Frequency, Urgency Musculoskeletal: Reports: No Symptoms Skin: Denies: Cyanosis, Mottled, Pallor, Diaphoresis, Bruising, Erythema Psychiatric: Denies: Depression, Anxiety, Agitation, Hallucinations Neurological: Denies: Confusion, Difficulty Walking, Weakness, Gait Disturbance Hematologic/Lymphatic: Reports: No Symptoms Immunologic: Reports: No Symptoms Exam - Exam Exam: See Below - Vital Signs Vital Signs: Last Vital Signs Temp 36.6 C 10/26/18 20:50 Pulse 73 10/26/18 20:50 Resp 18 10/26/18 20:50 BP 136/63 10/26/18 20:50 Pulse Ox 96 10/26/18 20:50 Weight: 71.214 kg - Exam Quality Assessment: No: Supplemental Oxygen General: Alert, Oriented, Cooperative, Mild Distress HEENT: Conjunctiva Clear, EACs Clear, EOMI, Hearing Intact, Mucosa Moist & [place] , Nares Patent, Normal Nasal Septum, Posterior Pharynx Clear, Pupils Equal, Pupils Reactive, TMs Clear Neck: Supple, Trachea Midline Lungs: Normal Respiratory Effort, Decreased Breath Sounds (at the bases), Rales Cardiovascular: Regular Rate, Regular Rhythm, Systolic Murmur GI/Abdominal Exam: Normal Bowel Sounds, Soft, Non-Tender, No Organomegaly, No Distention, No Abnormal Bruit, No Mass (Male) Exam: Deferred Rectal (Males) Exam: Deferred Back Exam: Normal Inspection, Decreased Range of Motion Extremities: Normal Inspection, Normal Range of Motion, Non-Tender, No Pedal Edema, Normal Capillary Refill Peripheral Pulses: 2+: Posterior Tibial (L), Posterior Tibial (R), Dorsalis Pedis (L), Dorsalis Pedis (R) Skin: Warm, Dry, Intact Neuro Extensive - Mental Status: Oriented x3, Normal Cognition, Memory Intact Neuro Extensive - Motor, Sensory, Reflexes: CN II-XII Intact, Normal Gait Psychiatric: Alert, Normal Affect, Normal Mood - Patient Data Lab Results Last 24 hrs: Laboratory Results - last 24 hr 10/26/18 10/26/18 10/26/18 Range/Units 18:18 18:18 18:18 WBC 8.53 (4.23-9.07) K/mm3 RBC 4.54 L (4.63-6.08) M/mm3 Hgb 13.2 L (13.7-17.5) gm/L Hct 39.8 L (40.1-51.0) % MCV 87.7 (79.0-92.2) fl MCH 29.1 (25.7-32.2) pg MCHC 33.2 (32.2-35.5) g/dl RDW Std Deviation 43.4 (35.1-43.9) fL Plt Count 226 (163-337) K/mm3 MPV 11.3 (9.4-12.3) fl Neutrophils % (Manual) 76 H (40-60) % Band Neutrophils % 0 (0-10) % Lymphocytes % (Manual) 20 (20-40) % Atypical Lymphs % 0 % Monocytes % (Manual) 3 (2-10) % Eosinophils % (Manual) 1 (0.8-7.0) % Basophils % (Manual) 0 L (0.2-1.2) Platelet Estimate Adequate RBC Morph Comment Normal D-Dimer, Quantitative 0.80 H (0.19-0.50) mg/L Sodium 141 (136-145) mEq/L Potassium 3.5 (3.5-5.1) mEq/L Chloride 105 (98-107) mEq/L Carbon Dioxide 28 (21-32) mEq/L Anion Gap 11.5 (5-15) BUN 25 H (7-18) mg/dL Creatinine 1.4 H (0.7-1.3) mg/dL Est Cr Clr Drug Dosing 41.38 mL/min Estimated GFR (MDRD) 49 (>60) mL/min BUN/Creatinine Ratio 17.9 (14-18) Glucose 118 H (83-115) mg/dL Calcium 9.3 (8.5-10.1) mg/dL Total Bilirubin 0.5 (0.2-1.0) mg/dL AST 21 (15-37) U/L ALT 25 (16-63) U/L Alkaline Phosphatase 71 (46-116) U/L Troponin I 0.092 H* (0.00-0.056) ng/mL NT-Pro-B Natriuret Pep (0-450) pg/mL Total Protein 6.8 (6.4-8.2) g/dl Albumin 3.5 (3.4-5.0) g/dl Globulin 3.3 gm/dL Albumin/Globulin Ratio 1.1 (1-2) 10/26/18 Range/Units 18:18 WBC (4.23-9.07) K/mm3 RBC (4.63-6.08) M/mm3 Hgb (13.7-17.5) gm/L Hct (40.1-51.0) % MCV (79.0-92.2) fl MCH (25.7-32.2) pg MCHC (32.2-35.5) g/dl RDW Std Deviation (35.1-43.9) fL Plt Count (163-337) K/mm3 MPV (9.4-12.3) fl Neutrophils % (Manual) (40-60) % Band Neutrophils % (0-10) % Lymphocytes % (Manual) (20-40) % Atypical Lymphs % % Monocytes % (Manual) (2-10) % Eosinophils % (Manual) (0.8-7.0) % Basophils % (Manual) (0.2-1.2) Platelet Estimate RBC Morph Comment D-Dimer, Quantitative (0.19-0.50) mg/L Sodium (136-145) mEq/L Potassium (3.5-5.1) mEq/L Chloride (98-107) mEq/L Carbon Dioxide (21-32) mEq/L Anion Gap (5-15) BUN (7-18) mg/dL Creatinine (0.7-1.3) mg/dL Est Cr Clr Drug Dosing mL/min Estimated GFR (MDRD) (>60) mL/min BUN/Creatinine Ratio (14-18) Glucose (83-115) mg/dL Calcium (8.5-10.1) mg/dL Total Bilirubin (0.2-1.0) mg/dL AST (15-37) U/L ALT (16-63) U/L Alkaline Phosphatase (46-116) U/L Troponin I (0.00-0.056) ng/mL NT-Pro-B Natriuret Pep 7914 H (0-450) pg/mL Total Protein (6.4-8.2) g/dl Albumin (3.4-5.0) g/dl Globulin gm/dL Albumin/Globulin Ratio (1-2) Result Diagrams: 10/27/18 06:00 10/27/18 06:00 EKG INTERPRETATION EKG Date: 10/26/18 Time: 17:33 Rhythm: NSR Rate (Beats/Min): 87 [place]: LAD-Left [place] Deviation P-Wave: Enlarged QRS: Normal ST-T: Normal QT: Prolonged Problem List Initiated/Reviewed/Updated: Yes Orders Last 24hrs: Active Orders 24 hr Category Date Time Status Admission Status [Patient Status] [ADT] Routine ADT 10/26/18 20:09 Active EKG Documentation Completion [RC] STAT Care 10/26/18 18:05 Active Chest 2V [CR] Stat Exams 10/26/18 18:05 Taken Chest wo Cont [CT] Urgent Exams 10/26/18 22:02 Ordered Aspirin [Halfprin] Med 10/27/18 09:00 Pending 81 mg PO DAILY Metoprolol Tartrate [Lopressor] Med 10/27/18 09:00 Pending 25 mg PO BID Sertraline [Zoloft] Med 10/27/18 09:00 Pending 50 mg PO DAILY Simvastatin [Zocor] Med 10/27/18 09:00 Pending 20 mg PO DAILY Medication Orders Aspirin (Halfprin) 81 mg PO DAILY CARLIE Metoprolol Tartrate (Lopressor) 25 mg PO BID CARLIE Sertraline HCl (Zoloft) 50 mg PO DAILY CARLIE Simvastatin (Zocor) 20 mg PO DAILY CARLIE Assessment/Plan Comment:: Assessment/Plan: Acute: Congestive Heart Failure w/ Preserved EF of 60-65% - 2/2 Worsening Severe Valvular Dysfunction (Severely dilated left atrium, Severe aortic valve stenosis, Moderated valve regurgitation and moderate mitral valve regurgitation) 10/11/2018 2D echo findings - He is scheduled for surgical replacement on in [place] - On heart failure regimen; continue diuretics and heart healthy diet - ProBNP level 7914; repeat level in AM - No clinical signs of peripheral edema - Chest x-ray showed increased lung markings and bilateral pleural effusions - CT to assess the size of pleural effusion - Consult General surgery for possible thoracentesis Slightly Elevated Troponin Level - Likely 2/2 Demand Ischemia/LV Strain - Continue ASA/BB/Statin Chronic: Impaired Vision CAD S/p x 3 Vessel CABG in 2002 HTN HLD HF with Preserved EF of 60-65% 10/01/2018 Hx/o S/p Bovine AVR in 2002 CKD Stage 3 Constipation, Stool Softener and PRN Bowel Stimulants Hemorrhoids Depression Plan: Admit to the floor Routine AM Labs Resume Home Meds Heart Failure Protocol GS consult for possible therapeutic thoracentesis Hold ASA in AM RT to assess and treat IS as directed SW/CM for d/c planning Code status: 1
[2018-10-26] MEDS ORDERED: Ondansetron 4 MG/2 ML SDV IV PRN (23:17)
[2018-10-26] MEDS ORDERED: Temazepam 7.5 MG Cap PO PRN (23:17)
[2018-10-26] MEDS ORDERED: Acetaminophen 325 MG Tab PO PRN (23:17)
[2018-10-26] MEDS ORDERED: LORazepam 2 MG/ML SDV IV PRN (23:17)
[2018-10-26] MEDS ORDERED: Bisacodyl 5 MG Tab PO PRN (23:17)
[2018-10-26] MEDS ORDERED: Acetaminophen/HYDROcodone 325-5 MG Tab PO PRN (23:17)
[2018-10-26] MEDS ORDERED: Albuterol/Ipratropium 3.0-0.5 MG/3 ML Neb Soln NEB PRN (23:17)
[2018-10-26] MEDS ORDERED: HYDROmorphone 1 MG/ML Syringe IVPUSH PRN (23:17)
[2018-10-26] MEDS ORDERED: Polyethylene Glycol 3350 Powder 17 GM Packet PO PRN (23:17)
[2018-10-26] MEDS ORDERED: Docusate Sodium 100 MG Cap PO PRN (23:17)
[2018-10-26] MEDS: METOPROLOL TARTRATE 50 MG PO SCH (23:40)
[2018-10-27] MEDS: Hydrochlorothiazide 12.5 MG Cap PO SCH ×2 (07:40→14:41)
[2018-10-27] MEDS ORDERED: Aspirin 81 MG Tab.EC PO SCH (09:00)
--- NOTE | 2018-10-27 09:46 | PCM.SN ---
- Free Text/Narrative Note: Called and talked to Dr. Renee. He will come and see patient or possible therapeutic thoracentesis.
[2018-10-27] MEDS ORDERED: Lidocaine 1% 10 ML MDV ONE (10:56)
[2018-10-27] MEDS: METOPROLOL TARTRATE 50 MG PO SCH ×2 (11:49→21:49)
[2018-10-27] MEDS: AMLODIPINE BESYLATE 5 MG PO SCH (11:50)
[2018-10-27] MEDS: FUROSEMIDE 40 MG PO SCH (11:51)
[2018-10-27] MEDS: IRON 65 MG PO SCH (11:51)
[2018-10-27] MEDS: Sertraline 50 MG Tab **PTOM PO SCH (11:52)
[2018-10-27] MEDS: Simvastatin 40 MG Tab **PTOM PO SCH (11:52)
--- NOTE | 2018-10-27 12:28 | CR ---
Chest: PA inspiratory and expiratory views of the chest were obtained as well as lateral view. Comparison: Prior chest x-ray of 10/26/[address] of 10/26/18. Heart appears to be slightly prominent. Previous pleural effusions have diminished on both sides. No pneumothorax is seen at this time. Diffuse increased pulmonary vessels are noted which appear stable. Previous sternotomy is seen. Impression: 1. Decreased bilateral pleural effusions from prior exam. No pneumothorax is seen at this time. 2. Stable pulmonary vascular congestion. Heart size slightly prominent. Diagnostic code #3
--- NOTE | 2018-10-27 12:33 | OR ---
DATE OF OPERATION: 10/27/2018 SURGEON: Cecilio Renee MD PREOPERATIVE DIAGNOSIS: Bilateral pleural effusions. POSTOPERATIVE DIAGNOSIS: Bilateral pleural effusions. OPERATION PERFORMED: Bilateral thoracentesis. COMPLICATIONS: None. ESTIMATED BLOOD LOSS: None. FINDINGS: A 950 mL of straw-colored fluid were removed on both sides. DISPOSITION: Stable at the end of the procedure. INDICATION: Lm is an 82-year-old male with history of coronary artery disease, status post CABG with a bovine aortic valve. He presents with shortness of breath secondary to bilateral pleural effusions. His CT scan demonstrated bilateral pleural effusions. The patient is known to have severely dilated left atrium, severe aortic valve stenosis, a moderate valve regurgitation, and a moderate mitral valve regurgitation. He is scheduled for heart valve replacement on November 14, 2018. However, he is quite symptomatic from his bilateral pleural effusions. He was offered bilateral thoracentesis for symptomatic relief, so that he may undertake further treatment for his valve. He was fully informed of the major risks, benefits, and alternatives. The risks include, but are not limited to pneumothorax, hemothorax, recurrence of pleural effusions due to his underlying condition, further surgery, and many others. He gave informed consent for what was done. DESCRIPTION OF PROCEDURE: Lm was placed in a sitting position with his legs straight at the tip of the bed. He was resting on a bedside table. I performed a thoracentesis on the left. Initially, I come from the site medial and inferior to the scapula and approximately the 6th or 7th rib space. The skin was infused with 1% lidocaine overlying the rib space. The catheter and guidewire were passed through a small incision made with an #11 blade into the rib space and directed within the rib space into the pleural cavity. I got a torrez of straw-colored fluid into a 60 mL syringe connected to the catheter, a needle. The catheter was advanced over the needle into pleural space. I then connected the catheter to suction tubing, which was then connected to a 1 L Vacutainer. The Vacutainer was nearly filled when it stopped draining. Repositioning failed to drain any further fluid, so the catheter was turned off suction and then removed. A Band-Aid was applied. The identical procedure was performed on the opposite site. At that point, a Band-Aid was applied to the right chest incision. The patient remained in stable condition with monitored vital signs during the entire procedure. We are currently waiting 2-view chest x-ray. He had no complications. ANESTHESIA: MMREY /[id number]
[2018-10-27] MEDS ORDERED: FUROSEMIDE 40 MG PO SCH (15:00)
[2018-10-28] MEDS: Hydrochlorothiazide 12.5 MG Cap PO SCH (05:57)
--- NOTE | 2018-10-28 08:27 | CR ---
Chest: PA and lateral views of the chest were obtained. Comparison: Prior chest x-ray of 10/20/18. Pulmonary vessels are congested. Findings are increased from previous exam. Small bilateral pleural effusions are seen. Heart size does not appear to be enlarged. Mild tortuosity of the thoracic aorta is seen. Slight degenerative change is scattered within the spine. Prior sternotomy is noted. Impression: 1. Findings suspicious for CHF, please exclude acute cardiac event. Diagnostic code #3
[2018-10-28] MEDS: FUROSEMIDE 40 MG PO SCH (08:33)
[2018-10-28] MEDS: IRON 65 MG PO SCH (08:34)
[2018-10-28] MEDS: METOPROLOL TARTRATE 50 MG PO SCH (08:35)
[2018-10-28] MEDS: Sertraline 50 MG Tab **PTOM PO SCH (08:36)
[2018-10-28] MEDS: AMLODIPINE BESYLATE 5 MG PO SCH (08:36)
[2018-10-28] MEDS: Simvastatin 40 MG Tab **PTOM PO SCH (08:37)
[2018-10-28 08:38] VITALS: BP 120/36
[2018-10-28] MEDS ORDERED: HYDROmorphone 0.5 MG/0.5 ML Syringe IVPUSH PRN (08:45)
[2018-10-28] MEDS ORDERED: Aspirin 81 MG Tab.EC **PTOM PO SCH (09:00)
--- NOTE | 2018-10-28 09:25 | PCM.PN ---
- General Info Date of Service: 10/27/18 Subjective Update: S/P bilateral thoracentesis, feels great. CXR review: No PTX. DC 24-48 hours. Functional Status: Reports: Pain Controlled, Tolerating Diet, Ambulating, Urinating - Review of Systems General: Reports: No Symptoms HEENT: Reports: No Symptoms Pulmonary: Reports: No Symptoms Cardiovascular: Reports: No Symptoms Gastrointestinal: Reports: No Symptoms Genitourinary: Reports: No Symptoms Musculoskeletal: Reports: No Symptoms Skin: Reports: No Symptoms Neurological: Reports: No Symptoms Psychiatric: Reports: No Symptoms - Patient Data Vitals - Most Recent: Last Vital Signs Temp 36.7 C 10/28/18 08:02 Pulse 65 10/28/18 08:35 Resp 18 10/28/18 08:02 BP 120/36 L 10/28/18 08:35 Pulse Ox 96 10/28/18 08:02 Weight - Most Recent: 65.119 kg I&O - Last 24 Hours: Intake & Output 10/27/18 10/28/18 10/28/18 22:59 06:59 14:59 Intake Total 580 400 Output Total 475 1200 Balance 105 -800 Lab Results Last 24 Hours: Laboratory Results - last 24 hr 10/28/18 Range/Units 06:05 Sodium 139 (136-145) mEq/L Potassium 3.7 (3.5-5.1) mEq/L Chloride 103 (98-107) mEq/L Carbon Dioxide 28 (21-32) mEq/L Anion Gap 11.7 (5-15) BUN 28 H (7-18) mg/dL Creatinine 1.5 H (0.7-1.3) mg/dL Est Cr Clr Drug Dosing 35.57 mL/min Estimated GFR (MDRD) 45 (>60) mL/min BUN/Creatinine Ratio 18.7 H (14-18) Glucose 97 (83-115) mg/dL Calcium 8.9 (8.5-10.1) mg/dL Magnesium 1.9 (1.8-2.4) mg/dl Med Orders - Current: Current Medications Acetaminophen (Tylenol) 650 mg PO Q4H PRN PRN Reason: Pain (Mild 1-3)/fever Hydrocodone Bitart/Acetaminophen ([place] 325-5 Mg) 1 tab PO Q4H PRN PRN Reason: Pain (moderate 4-6) Albuterol/Ipratropium (Duoneb 3.0-0.5 Mg/3 Ml) 3 ml NEB Q4H PRN PRN Reason: Shortness Of Breath/wheezing Bisacodyl (Dulcolax) 5 mg PO DAILY PRN PRN Reason: Constipation Docusate Sodium (Colace) 100 mg PO BID PRN PRN Reason: Constipation Last Admin: 10/27/18 21:49 Dose: 100 mg Hydrochlorothiazide (Hydrochlorothiazide) 12.5 mg PO BIDDIURETIC [facility] Last Admin: 10/28/18 05:57 Dose: 12.5 mg Hydromorphone HCl (Dilaudid) 0.5 mg IVPUSH Q2H PRN PRN Reason: Pain (severe 7-10) Lorazepam (Ativan) 0.5 mg IV Q6H PRN PRN Reason: Anxiety Metoprolol Tartrate (Lopressor) 25 mg PO BID [facility] Last Admin: 10/28/18 08:35 Dose: 25 mg Ondansetron HCl (Zofran) 4 mg IV Q6H PRN PRN Reason: Nausea/Vomiting Sertraline 50 Mg Tab (Ptom) 0 each PO DAILY [facility] Last Admin: 10/28/18 08:36 Dose: 1 each Simvastatin 40 Mg (Tab Ptom) 0 each PO DAILY [facility] Last Admin: 10/28/18 08:37 Dose: 0.5 each Amlodipine Besylate (5 Mg Ptom) 0 each PO DAILY [facility] Last Admin: 10/28/18 08:36 Dose: 1 each Furosemide [Lasix] (40 Mg Ptom) 0 each PO QAM [facility] Last Admin: 10/28/18 08:33 Dose: 1 each High Potency Iron 65 (Mg Ptom) 0 each PO DAILY [facility] Last Admin: 10/28/18 08:34 Dose: 1 each Aspirin 81 Mg Tab.Ec (Ptom) 0 each PO DAILY [facility] Furosemide [Lasix] (40 Mg TabPtom) 0 each PO 1300 [facility] Last Admin: 10/27/18 14:42 Dose: 0.5 each Polyethylene Glycol (Miralax) 17 gm PO DAILY PRN PRN Reason: Constipation Senna/Docusate Sodium (Senna Plus) 1 tab PO BID PRN PRN Reason: Constipation Temazepam (Restoril) 7.5 mg PO BEDTIME PRN PRN Reason: Sleep Last Admin: 10/26/18 23:48 Dose: 7.5 mg Discontinued Medications Aspirin (Halfprin) 81 mg PO DAILY [facility] Furosemide (Lasix) 40 mg IVPUSH NOW ONE Stop: 10/26/18 19:18 Last Admin: 10/26/18 19:27 Dose: 40 mg Hydromorphone HCl (Dilaudid) 0.5 mg IVPUSH Q2H PRN PRN Reason: Pain (severe 7-10) Last Admin: 10/27/18 11:37 Dose: 0.5 mg Lidocaine HCl (Xylocaine 1%) Confirm Administered Dose 10 ml .ROUTE .STK-MED ONE Stop: 10/27/18 10:57 Last Admin: 10/27/18 11:54 Dose: Not Given Furosemide [Lasix] (40 Mg TabPtom) 0 each PO 1300 [facility] Last Admin: 10/27/18 10:33 Dose: Not Given - Exam Quality Assessment: Supplemental Oxygen, DVT Prophylaxis General: Alert, Oriented, Cooperative, No Acute Distress HEENT: Pupils Equal, Pupils Reactive, EOMI Neck: Trachea Midline, No JVD Lungs: Normal Respiratory Effort Cardiovascular: Regular Rate GI/Abdominal Exam: Normal Bowel Sounds, Soft, Non-Tender, No Organomegaly, No Distention (Male) Exam: Deferred Back Exam: Normal Inspection Extremities: Normal Inspection, Non-Tender, Normal Capillary Refill Skin: Warm Neurological: No New Focal Deficit Psy/Mental Status: Alert, Normal Affect, Normal Mood - Problem List Review Problem List Initiated/Reviewed/Updated: Yes - Plan Plan:: Assessment/Plan: Acute: Congestive Heart Failure w/ Preserved EF of 60-65% - 2/2 Worsening Severe Valvular Dysfunction (Severely dilated left atrium, Severe aortic valve stenosis, Moderated valve regurgitation and moderate mitral valve regurgitation) 10/11/2018 2D echo findings - He is scheduled for surgical replacement on in [place] - On heart failure regimen; continue diuretics and heart healthy diet - ProBNP level 7914; repeat level in AM - No clinical signs of peripheral edema - Chest x-ray showed increased lung markings and bilateral pleural effusions - CT to assess the size of pleural effusion - Consult General surgery for possible thoracentesis: 2 liters of straw colored fluid Slightly Elevated Troponin Level--repeat ordered. - Likely 2/2 Demand Ischemia/LV Strain - Continue ASA/BB/Statin Chronic: Impaired Vision CAD S/p x 3 Vessel CABG in 2002 HTN HLD HF with Preserved EF of 60-65% 10/01/2018 Hx/o S/p Bovine AVR in 2002 CKD Stage 3 Constipation, Stool Softener and PRN Bowel Stimulants Hemorrhoids Depression Plan: Admit to the floor Routine AM Labs Resume Home Meds Heart Failure Protocol GS consult for possible therapeutic thoracentesis Hold ASA in AM RT to assess and treat IS as directed SW/CM for d/c planning; 24-48 hours. Code status: 1
[2018-10-28] MEDS ORDERED: Magnesium Sulfate/Water 2 GM in Premix Bag 1 BAG IV ONE (10:00)
--- NOTE | 2018-10-28 11:15 | CT ---
CT chest Technique: Multiple axial sections were obtained from above the lung apices inferiorly through the lung bases. Intravenous contrast not utilized. Comparison: Previous chest x-ray performed earlier the same day (6:05 PM) Findings: Moderately large bilateral pleural effusions are seen. Atherosclerotic calcification is noted within the thoracic aorta as well as coronary artery calcification. No pericardial effusion is seen. Small portion of the visualized upper abdominal structures shows cystic change within the left kidney. Very slight parenchymal densities noted within the right upper lung most likely incidental. Bone window settings were reviewed showing scattered degenerative change within the spine. No acute osseous abnormality is seen. Previous sternotomy is noted. Impression: 1. Moderately large bilateral pleural effusions most likely from CHF. Diagnostic code #3 I agree with preliminary report from [facility], finalized on 10/27/18, 12:14 AM Central Time
--- NOTE | 2018-10-28 11:35 | PCM.DCSUM1 ---
Discharge Summary - Hospital Course Free Text/Narrative:: 82 year old male was diuresed and is S/P bilateral thoracentesis with 2 liter fluid removal was subsequently discharged. Home meds were continued. A prearranged cardiology appt is 10/29/[address] Martinez. The last appointment was October 24, 2018. The patient is currently ambulating without difficulty. A 2D echo was not performed prior to DC; he known to have HFpEF/ LVEF 60-65% with severe /mod MR. LORENZ Initial Comments: This is an 82 yo elderly white male with past medical hx/o Impaired Vision, CAD S/p x 3 Vessel CABG in 2002, HTN, HLD, HF with Preserved EF of 60-65% 10/01/2018 , Hx/o S/p Bovine AVR in 2002, CKD Stage 3, Hemorrhoids and Depression who comes in for worsening shortness of breath associated with Dyspnea, weight gain , dry cough and PND-3 weeks ago. He denies any chest pain, shortness of breath or heart palpitations. He also states he feels bloated in the past couple of days and has been constipated for a few days now. He was initially seen at the walk in clinic 3 days ago for constipation but was told to take Colace for bowel movement. He did fine after that but now reports feeling bloated. Patient had a similar episode about on 09/30/18 and was diagnosed with heart failure but was transferred to [place] for upper level of care. In [place] he received medical treatment and a 2D echo but was discharged the following day. He states that his Aortic valve replacement went bad and therefore he is requiring replacement. He is scheduled to have some type of a cardiac invasive procedure Monday10/29/2018 in preparation of his scheduled valvular surgery on November 14. His initial work up in ED shows a CBC remarkable for RBC of 4.54, Hgb of 13.2, Hct of 39.8, and Neutrophils of 76%. His D-Dimer is 0.80. His Chemistry is significant for BUN of 25, Cr of 1.4, BS of 118, troponin of 0.092, ProNP of 7914. His chest x-ray shows bilateral pleural effusions and increased vascular markings. Patient is being admitted for acute congestive heart failure secondary to failing aortic valve replacement. He is full code. Diagnosis: Stroke: No - Discharge Data Discharge Date: 10/28/18 Discharge Disposition: Home, Self-Care 01 Condition: Good - Patient Summary/Data Consults: Consultations 10/26/18 23:17 Consult to Case Management/[employer] [CONS] Routine Consult to Spiritual Care [CONS] Routine Respiratory Care Assess and Treatment [CONS] Routine 10/27/18 09:25 Consult to Physician [CONS] Routine - Patient Instructions Diet: Heart Healthy Diet Fluid Restriction: 2000 mL Activity: As Tolerated Driving: Do Not Drive Showering/Bathing: November Shower Notify Provider of: Fever, Increased Pain, Nausea and/or Vomiting - Discharge Plan *PRESCRIPTION DRUG MONITORING PROGRAM REVIEWED*: Not Applicable *COPY OF PRESCRIPTION DRUG MONITORING REPORT IN PATIENT JESSI: Not Applicable Home Medications: Home Meds Aspirin [Halfprin] 81 mg PO DAILY 09/06/17 [History] Metoprolol Tartrate 25 mg PO BID 09/06/17 [History] Simvastatin 20 mg PO DAILY 09/06/17 [History] Sertraline [Zoloft] 50 mg PO DAILY 09/30/18 [History] amLODIPine Besylate [Amlodipine Besylate] 5 mg PO DAILY 10/20/18 [History] Furosemide [Lasix] 20 mg PO ASDIRECTED 10/26/18 [History] Furosemide [Lasix] 40 mg PO QAM 10/26/18 [History] Iron,Carbonyl/Vit C/Vit B12/Fa [Iron 100 Plus Tablet] 65 mg PO DAILY 10/26/18 [ History] Lisinopril 20 mg PO DAILY 10/27/18 [History] Oxygen Therapy Mode: Room Air Patient Handouts: Shortness of Breath, Adult, [id number], Aortic Valve Replacement, Supporting Someone With Heart Failure, Heart Failure Action Plan Referrals: Nash Gray MD [Physician] - (please call and schedule a hospital follow up appointment with Dr. Gray within 7-10 days.) - Discharge Summary/Plan Comment DC Time >30 min.: No Discharge Summary/Plan Comment: Assessment/Plan: Acute: Congestive Heart Failure w/ Preserved EF of 60-65% - 2/2 Worsening Severe Valvular Dysfunction (Severely dilated left atrium, Severe aortic valve stenosis, Moderated valve regurgitation and moderate mitral valve regurgitation) 10/11/2018 2D echo findings - He is scheduled for surgical replacement on in [place] - On heart failure regimen; continue diuretics and heart healthy diet - ProBNP level 7914; repeat level in AM - No clinical signs of peripheral edema - Chest x-ray showed increased lung markings and bilateral pleural effusions - CT to assess the size of pleural effusion - Consult General surgery for possible thoracentesis: 2 liters of straw colored fluid Slightly Elevated Troponin Level--repeat ordered. - Likely 2/2 Demand Ischemia/LV Strain - Continue ASA/BB/Statin Chronic: Impaired Vision CAD S/p x 3 Vessel CABG in 2002 HTN HLD HF with Preserved EF of 60-65% 10/01/2018 Hx/o S/p Bovine AVR in 2002 CKD Stage 3 Constipation, Stool Softener and PRN Bowel Stimulants Hemorrhoids Depression Plan: Admit to the floor Routine AM Labs Resume Home Meds Heart Failure Protocol GS consult for possible therapeutic thoracentesis Hold ASA in AM RT to assess and treat IS as directed SW/CM for d/c planning; 24-48 hours. Code status: 1 - General Info Date of Service: 10/26/18 Functional Status: Reports: Tolerating Diet, Urinating - Review of Systems General: Reports: No Symptoms HEENT: Reports: No Symptoms Pulmonary: Reports: No Symptoms Cardiovascular: Reports: No Symptoms Gastrointestinal: Reports: No Symptoms Genitourinary: Reports: No Symptoms Musculoskeletal: Reports: No Symptoms Skin: Reports: No Symptoms Neurological: Reports: No Symptoms Psychiatric: Reports: No Symptoms - Patient Data Vitals - Most Recent: Last Vital Signs Temp 36.7 C 10/28/18 08:02 Pulse 65 10/28/18 08:35 Resp 18 10/28/18 08:02 BP 120/36 L 10/28/18 08:35 Pulse Ox 96 10/28/18 08:02 Weight - Most Recent: 65.119 kg I&O - Last 24 hours: Intake & Output 10/27/18 10/28/18 10/28/18 22:59 06:59 14:59 Intake Total 580 400 180 Output Total 475 1200 Balance 105 -800 180 Lab Results - Last 24 hrs: Laboratory Results - last 24 hr 10/28/18 10/28/18 Range/Units 06:05 09:30 Sodium 139 (136-145) mEq/L Potassium 3.7 (3.5-5.1) mEq/L Chloride 103 (98-107) mEq/L Carbon Dioxide 28 (21-32) mEq/L Anion Gap 11.7 (5-15) BUN 28 H (7-18) mg/dL Creatinine 1.5 H (0.7-1.3) mg/dL Est Cr Clr Drug Dosing 35.57 mL/min Estimated GFR (MDRD) 45 (>60) mL/min BUN/Creatinine Ratio 18.7 H (14-18) Glucose 97 (83-115) mg/dL Calcium 8.9 (8.5-10.1) mg/dL Magnesium 1.9 (1.8-2.4) mg/dl Troponin I 0.055 (0.00-0.056) ng/mL Med Orders - Current: Current Medications Acetaminophen (Tylenol) 650 mg PO Q4H PRN PRN Reason: Pain (Mild 1-3)/fever Hydrocodone Bitart/Acetaminophen ([place] 325-5 Mg) 1 tab PO Q4H PRN PRN Reason: Pain (moderate 4-6) Albuterol/Ipratropium (Duoneb 3.0-0.5 Mg/3 Ml) 3 ml NEB Q4H PRN PRN Reason: Shortness Of Breath/wheezing Bisacodyl (Dulcolax) 5 mg PO DAILY PRN PRN Reason: Constipation Docusate Sodium (Colace) 100 mg PO BID PRN PRN Reason: Constipation Last Admin: 10/27/18 21:49 Dose: 100 mg Hydrochlorothiazide (Hydrochlorothiazide) 12.5 mg PO BIDDIURETIC [facility] Last Admin: 10/28/18 05:57 Dose: 12.5 mg Hydromorphone HCl (Dilaudid) 0.5 mg IVPUSH Q2H PRN PRN Reason: Pain (severe 7-10) Magnesium Sulfate 2 gm/ Premix 50 mls @ 25 mls/hr IV ONETIME ONE Stop: 10/28/18 11:59 Last Admin: 10/28/18 11:15 Dose: 25 mls/hr Lorazepam (Ativan) 0.5 mg IV Q6H PRN PRN Reason: Anxiety Metoprolol Tartrate (Lopressor) 25 mg PO BID [facility] Last Admin: 10/28/18 08:35 Dose: 25 mg Ondansetron HCl (Zofran) 4 mg IV Q6H PRN PRN Reason: Nausea/Vomiting Sertraline 50 Mg Tab (Ptom) 0 each PO DAILY [facility] Last Admin: 10/28/18 08:36 Dose: 1 each Simvastatin 40 Mg (Tab Ptom) 0 each PO DAILY [facility] Last Admin: 10/28/18 08:37 Dose: 0.5 each Amlodipine Besylate (5 Mg Ptom) 0 each PO DAILY [facility] Last Admin: 10/28/18 08:36 Dose: 1 each Furosemide [Lasix] (40 Mg Ptom) 0 each PO QAM [facility] Last Admin: 10/28/18 08:33 Dose: 1 each High Potency Iron 65 (Mg Ptom) 0 each PO DAILY [facility] Last Admin: 10/28/18 08:34 Dose: 1 each Aspirin 81 Mg Tab.Ec (Ptom) 0 each PO DAILY [facility] Last Admin: 10/28/18 09:10 Dose: 1 each Furosemide [Lasix] (40 Mg TabPtom) 0 each PO 1300 [facility] Last Admin: 10/27/18 14:42 Dose: 0.5 each Polyethylene Glycol (Miralax) 17 gm PO DAILY PRN PRN Reason: Constipation Senna/Docusate Sodium (Senna Plus) 1 tab PO BID PRN PRN Reason: Constipation Temazepam (Restoril) 7.5 mg PO BEDTIME PRN PRN Reason: Sleep Last Admin: 10/26/18 23:48 Dose: 7.5 mg Discontinued Medications Aspirin (Halfprin) 81 mg PO DAILY [facility] Furosemide (Lasix) 40 mg IVPUSH NOW ONE Stop: 10/26/18 19:18 Last Admin: 10/26/18 19:27 Dose: 40 mg Hydromorphone HCl (Dilaudid) 0.5 mg IVPUSH Q2H PRN PRN Reason: Pain (severe 7-10) Last Admin: 10/27/18 11:37 Dose: 0.5 mg Lidocaine HCl (Xylocaine 1%) Confirm Administered Dose 10 ml .ROUTE .STK-MED ONE Stop: 10/27/18 10:57 Last Admin: 10/27/18 11:54 Dose: Not Given Furosemide [Lasix] (40 Mg TabPtom) 0 each PO 1300 [facility] Last Admin: 10/27/18 10:33 Dose: Not Given - Exam Quality Assessment: Reports: DVT Prophylaxis General: Reports: Alert, Oriented, Cooperative, No Acute Distress HEENT: Reports: Pupils Equal, Pupils Reactive, EOMI Neck: Reports: Trachea Midline, No JVD Lungs: Reports: Normal Respiratory Effort Cardiovascular: Reports: Regular Rate, Murmurs GI/Abdominal Exam: Normal Bowel Sounds, Soft, Non-Tender, No Organomegaly, No Distention (Male) Exam: Deferred Rectal (Males) Exam: Deferred Back Exam: Reports: Normal Inspection Extremities: Normal Inspection, Non-Tender, Normal Capillary Refill Skin: Reports: Warm Neurological: Reports: No New Focal Deficit, Normal Gait, Normal Speech Psy/Mental Status: Reports: Alert, Normal Affect, Normal Mood
== END 2018-10-28 13:30 | disposition home or self-care (01) ==
LOC: JD.ED 17:10 → JD.MS 20:09
PROVIDERS: ADMIT Internal Medicine; ATTEND Internal Medicine
DX: I13.0 Hypertensive heart and chronic kidney disease with heart failure and stage 1 through stage 4 chronic kidney disease, or unspecified chronic kidney disease (principal); I50.32 Chronic diastolic (congestive) heart failure; J91.8 Pleural effusion in other conditions classified elsewhere; N18.3 Chronic kidney disease, stage 3 (moderate); I25.10 Atherosclerotic heart disease of native coronary artery without angina pectoris; I08.0 Rheumatic disorders of both mitral and aortic valves; E78.5 Hyperlipidemia, unspecified; F32.9 Major depressive disorder, single episode, unspecified; K64.9 Unspecified hemorrhoids; Z95.1 Presence of aortocoronary bypass graft; Z87.891 Personal history of nicotine dependence; Z79.82 Long term (current) use of aspirin; Z79.899 Other long term (current) drug therapy
CPT/HCPCS: 32554-LT; 36415; 71046; 71046-26; 71250; 71250-26; 80048; 80053; 83735; 83880; 84484; 85007; 85025; 85027; 85379; 93005; 93010; 96365; 96374; 96375; 99283; 99285-25; A9270-GY; G0378; J1170; J1940; J3475

== ENCOUNTER 2018-11-30 13:31 | Emergency (ER) | payer MEDICARE, OTHER ==
[2018-11-30 14:04] VITALS: BP 142/36
[2018-11-30] MEDS ORDERED: Sodium Chloride 0.9% 10 ML Syringe FLUSH PRN (14:09)
[2018-11-30] MEDS ORDERED: Bumetanide 1 MG/4 ML MDV IVPUSH ONE (15:22)
--- NOTE | 2018-11-30 15:47 | EDM.PDOC ---
ED HPI GENERAL MEDICAL PROBLEM - General Chief Complaint: Cardiovascular Problem Stated Complaint: LEGS SWELLING Time Seen by Provider: 11/30/18 14:07 Source of Information: Reports: Patient History Limitations: Reports: No Limitations - History of Present Illness INITIAL COMMENTS - FREE TEXT/NARRATIVE: 83 y/o male presents to ER with cc bilateral lower extremity swelling, SOB and chest discomfort. He states he gained 5 lbs in the past week. He has a history of CHF and needs to have his aorta valve replaced. He reports taking 80 mg of Lasix but continues to have increased lower leg swelling and dyspnea. He denies fever or chills, no abdominal pain. His PCP is Dr. Figueroa. He is accompanied by his . He is in no apparent distress at this time. Duration: Getting Worse Location: Reports: Lower Extremity, Left, Lower Extremity, Right Quality: Reports: Same as Previous Episode Severity: Mild Improves with: Reports: Rest Worsens with: Reports: Breathing Associated Symptoms: Reports: Chest Pain, Shortness of Breath, Weakness. Denies : Cough, Fever/Chills, Nausea/Vomiting, Syncope - Related Data Allergies Allergy/AdvReac Type Severity Reaction Status Date / Time No Known Allergies Allergy Verified 10/26/18 23:02 Home Meds: Home Meds Aspirin [Halfprin] 81 mg PO DAILY 09/06/17 [History] Metoprolol Tartrate 25 mg PO BID 09/06/17 [History] Simvastatin 20 mg PO DAILY 09/06/17 [History] Sertraline [Zoloft] 50 mg PO DAILY 09/30/18 [History] amLODIPine Besylate [Amlodipine Besylate] 5 mg PO DAILY 10/20/18 [History] Furosemide [Lasix] 40 mg PO 1300 10/26/18 [History] Furosemide [Lasix] 40 mg PO QAM 10/26/18 [History] Iron,Carbonyl/Vit C/Vit B12/Fa [Iron 100 Plus Tablet] 65 mg PO DAILY 10/26/18 [ History] Lisinopril 20 mg PO DAILY 10/27/18 [History] Bumetanide [Bumex] 0.5 mg PO DAILY 4 Days #4 tab 11/30/18 [Rx] Docusate Sodium [Colace] 100 mg PO BEDTIME 11/30/18 [History] Melatonin 5 mg PO BEDTIME PRN 05/17/19 [History] Past Medical History HEENT History: Reports: Impaired Vision Other HEENT History: Wears glasses Cardiovascular History: Reports: CAD, Heart Failure, High Cholesterol, Hypertension, Other (See Below) Other Cardiovascular History: aortic stenosis with bovine valve replacement in 2002 Respiratory History: Reports: None, Other (See Below) Other Respiratory History: Pleural effusion Gastrointestinal History: Reports: Hemorrhoids Other Gastrointestinal History: has been having more gas/upset stomach recently Genitourinary History: Reports: Chronic Renal Insuffiency Neurological History: Reports: None Psychiatric History: Reports: Depression Endocrine/Metabolic History: Reports: None Oncologic (Cancer) History: Reports: Basal Cell Carcinoma Other Oncologic History: 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 - Infectious Disease History Infectious Disease History: Reports: Influenza, Measles - Past Surgical History Head Surgeries/Procedures: Reports: None HEENT Surgical History: Reports: Cataract Surgery, Tonsillectomy Cardiovascular Surgical History: Reports: Coronary Artery Bypass, Valve Replacement GI Surgical History: Reports: Colonoscopy, EGD, Hernia, Inguinal Musculoskeletal Surgical History: Reports: None Dermatological Surgical History: Reports: None Social & Family History - Family History Family Medical History: Noncontributory - Tobacco Use Smoking Status *Q: Former Smoker Used Tobacco, but Quit: Yes Month/Year Tobacco Last Used: 2004 - Caffeine Use Caffeine Use: Reports: Coffee, Tea Other Caffeine Use: decaf - Recreational Drug Use Recreational Drug Use: No - Living Situation & Occupation Living situation: Reports: , with Spouse Occupation: Retired ED ROS GENERAL - Review of Systems Review Of Systems: See Below Constitutional: Denies: Fever, Chills HEENT: Reports: Glasses Respiratory: Reports: Shortness of Breath Cardiovascular: Reports: Chest Pain, Edema Endocrine: Reports: Fatigue GI/Abdominal: Denies: Abdominal Pain : Reports: No Symptoms Musculoskeletal: Denies: Back Pain Skin: Reports: No Symptoms Neurological: Reports: No Symptoms Psychiatric: Reports: No Symptoms Hematologic/Lymphatic: Reports: No Symptoms ED EXAM, GENERAL - Physical Exam Exam: See Below Exam Limited By: No Limitations General Appearance: Alert, WD/WN, No Apparent Distress Neck: Normal Inspection, Supple, Non-Tender, Full Range of Motion Respiratory/Chest: No Respiratory Distress, No Accessory Muscle Use, Chest Non- Tender, Decreased Breath Sounds Cardiovascular: Normal Peripheral Pulses, Regular Rate, Rhythm, Diastolic Murmur GI/Abdominal: Normal Bowel Sounds, Soft, Non-Tender, No Organomegaly, No Distention, No Abnormal Bruit, No Mass, Pelvis Stable Back Exam: Normal Inspection, Full Range of Motion Extremities: Normal Inspection, Normal Range of Motion, Non-Tender, Normal Capillary Refill, Pedal Edema Neurological: Alert, Oriented, CN II-XII Intact, Normal Cognition, Normal Gait Psychiatric: Normal Affect, Normal Mood Skin Exam: Warm, Dry, Intact, Normal Color, No Rash Lymphatic: No Adenopathy EKG INTERPRETATION EKG Date: 11/30/18 Time: 14:43 Rhythm: NSR Rate (Beats/Min): 62 EKG Interpretation Comments: nsr with pac, probable lvh with secondary repolarization abnormality. Course - Vital Signs Last Recorded V/S: Last Vital Signs Temp 97.3 F 11/30/18 13:58 Pulse 65 11/30/18 13:58 Resp 20 11/30/18 13:58 BP 142/36 H 11/30/18 13:58 Pulse Ox 93 L 11/30/18 13:58 - Orders/Labs/Meds Orders: Active Orders 24 hr Category Date Time Status EKG Documentation Completion [RC] STAT Care 11/30/18 14:08 Active Chest 2V [CR] Stat Exams 11/30/18 14:08 Taken Sodium Chloride 0.9% [Saline Flush] Med 11/30/18 14:09 Active 10 ml FLUSH ASDIRECTED PRN Saline Lock Insert [OM.PC] Routine Oth 11/30/18 14:09 Ordered Medication Orders Sodium Chloride (Saline Flush) 10 ml FLUSH ASDIRECTED PRN PRN Reason: Keep Vein Open Last Admin: 11/30/18 15:50 Dose: 10 ml Labs: Laboratory Tests 11/30/18 11/30/18 11/30/18 Range/Units 14:30 14:30 14:30 WBC 10.04 H (4.23-9.07) K/mm3 RBC 4.28 L (4.63-6.08) M/mm3 Hgb 12.7 L (13.7-17.5) gm/L Hct 38.1 L (40.1-51.0) % MCV 89.0 (79.0-92.2) fl MCH 29.7 (25.7-32.2) pg MCHC 33.3 (32.2-35.5) g/dl RDW Std Deviation 45.4 H (35.1-43.9) fL Plt Count 225 (163-337) K/mm3 MPV 11.8 (9.4-12.3) fl Neut % (Auto) 79.8 H (34.0-67.9) % Lymph % (Auto) 13.8 L (21.8-53.1) % [place] % (Auto) 5.3 (5.3-12.2) % Eos % (Auto) 0.6 L (0.8-7.0) Baso % (Auto) 0.3 (0.1-1.2) % Neut # (Auto) 8.01 H (1.78-5.38) K/mm3 Lymph # (Auto) 1.39 (1.32-3.57) K/mm3 [place] # (Auto) 0.53 (0.30-0.82) K/mm3 Eos # (Auto) 0.06 (0.04-0.54) K/mm3 Baso # (Auto) 0.03 (0.01-0.08) K/mm3 Sodium 141 (136-145) mEq/L Potassium 3.4 L (3.5-5.1) mEq/L Chloride 104 (98-107) mEq/L Carbon Dioxide 29 (21-32) mEq/L Anion Gap 11.4 (5-15) BUN 27 H (7-18) mg/dL Creatinine 1.3 (0.7-1.3) mg/dL Est Cr Clr Drug Dosing 43.81 mL/min Estimated GFR (MDRD) 53 (>60) mL/min BUN/Creatinine Ratio 20.8 H (14-18) Glucose 112 (83-115) mg/dL Calcium 9.2 (8.5-10.1) mg/dL Total Bilirubin 0.6 (0.2-1.0) mg/dL AST 19 (15-37) U/L ALT 25 (16-63) U/L Alkaline Phosphatase 83 (46-116) U/L Troponin I 0.195 H* (0.00-0.056) ng/mL NT-Pro-B Natriuret Pep 79630 H (0-450) pg/mL Total Protein 7.1 (6.4-8.2) g/dl Albumin 3.5 (3.4-5.0) g/dl Globulin 3.6 gm/dL Albumin/Globulin Ratio 1.0 (1-2) 11/30/18 Range/Units 16:45 WBC (4.23-9.07) K/mm3 RBC (4.63-6.08) M/mm3 Hgb (13.7-17.5) gm/L Hct (40.1-51.0) % MCV (79.0-92.2) fl MCH (25.7-32.2) pg MCHC (32.2-35.5) g/dl RDW Std Deviation (35.1-43.9) fL Plt Count (163-337) K/mm3 MPV (9.4-12.3) fl Neut % (Auto) (34.0-67.9) % Lymph % (Auto) (21.8-53.1) % [place] % (Auto) (5.3-12.2) % Eos % (Auto) (0.8-7.0) Baso % (Auto) (0.1-1.2) % Neut # (Auto) (1.78-5.38) K/mm3 Lymph # (Auto) (1.32-3.57) K/mm3 [place] # (Auto) (0.30-0.82) K/mm3 Eos # (Auto) (0.04-0.54) K/mm3 Baso # (Auto) (0.01-0.08) K/mm3 Sodium (136-145) mEq/L Potassium (3.5-5.1) mEq/L Chloride (98-107) mEq/L Carbon Dioxide (21-32) mEq/L Anion Gap (5-15) BUN (7-18) mg/dL Creatinine (0.7-1.3) mg/dL Est Cr Clr Drug Dosing mL/min Estimated GFR (MDRD) (>60) mL/min BUN/Creatinine Ratio (14-18) Glucose (83-115) mg/dL Calcium (8.5-10.1) mg/dL Total Bilirubin (0.2-1.0) mg/dL AST (15-37) U/L ALT (16-63) U/L Alkaline Phosphatase (46-116) U/L Troponin I 0.180 H* (0.00-0.056) ng/mL NT-Pro-B Natriuret Pep (0-450) pg/mL Total Protein (6.4-8.2) g/dl Albumin (3.4-5.0) g/dl Globulin gm/dL Albumin/Globulin Ratio (1-2) Meds: Medications Generic Name Dose Route Start Last Admin Trade Name Carmen PRN Reason Stop Dose Admin Sodium Chloride 10 ml 11/30/18 14:09 11/30/18 15:50 Saline Flush FLUSH 10 ml ASDIRECTED PRN Administration Keep Vein Open Discontinued Medications Generic Name Dose Route Start Last Admin Trade Name Freq PRN Reason Stop Dose Admin Bumetanide 1 mg 11/30/18 15:22 11/30/18 15:50 Bumex IVPUSH 11/30/18 15:23 1 mg ONETIME ONE Administration - Re-Assessments/Exams Free Text/Narrative Re-Assessment/Exam: 11/30/18 15:45 wbc 10.04 rbc 4.28 h & H 12.7/38.1 Na + 141 K+ 3.4 chl 104 co2 29 bin 27 creatine 1.3 troponin 0.195. I feel the elevated troponin maybe due to CHF. Chest x-ray revealed bilateral pleural effusions. I will medicate with Bumex 1 mg ivp. 11/30/18 17:03 Patient states he feels much better. 2 nd troponin pending. I will consider discharging home with Bumex for a few days vs admission. Patient states he would rather go home at this time. 11/30/18 17:29 his troponin is down to 0.185. I will discharge home. Instructed to return to the ER for any new or acute worsening symptoms. Patient verbalized understanding and is comfortable with plan for discharge. Departure - Departure Time of Disposition: 17:30 Disposition: Home, Self-Care 01 Condition: Good Clinical Impression: Hypertensive heart disease Qualifiers: Heart failure presence: with heart failure Heart failure type: diastolic Heart failure chronicity: acute Qualified Code(s): I11.0 - Hypertensive heart disease with heart failure Prescriptions: Bumetanide [Bumex] 0.5 mg PO DAILY 4 Days #4 tab Instructions: Shortness of Breath, Adult, [id number], Heart Failure, Easy-to- Read, Edema, [id number] Referrals: Nash Gray MD [Primary Care Provider] - Forms: ED Department Discharge Additional Instructions: You have been diagnosis with congestive heart failure. Continue to take your Lasix as prescribed. In addition take Bumex 0.5 mg daily for 4 days. Follow up with your PCP. Return to the ER for any new or acute worsening symptoms. - My Orders Last 24 Hours: My Active Orders 11/30/18 14:08 EKG Documentation Completion [RC] STAT Chest 2V [CR] Stat 11/30/18 14:09 Sodium Chloride 0.9% [Saline Flush] 10 ml FLUSH ASDIRECTED PRN Saline Lock Insert [OM.PC] Routine - Assessment/Plan Last 24 Hours: My Active Orders 11/30/18 14:08 EKG Documentation Completion [RC] STAT Chest 2V [CR] Stat 11/30/18 14:09 Sodium Chloride 0.9% [Saline Flush] 10 ml FLUSH ASDIRECTED PRN Saline Lock Insert [OM.PC] Routine
--- NOTE | 2018-12-03 07:28 | CR ---
Chest: Two views of the chest were obtained. Comparison: Prior chest x-ray at 10/27/18. Heart size is normal. Tortuous thoracic aorta is seen. Small bilateral pleural effusions are noted. Atelectasis is noted within the left lung base. Pulmonary vessels are congested. Prior sternotomy is noted. Bony structures show mild degenerative change within the spine. Impression: 1. Findings suspicious for mild CHF. Left basilar atelectasis is noted. 2. Other incidental findings as noted above. Note: Findings have increased from previous chest x-ray. Diagnostic code #3
== END 2018-11-30 17:45 | disposition home or self-care (01) ==
LOC: JD.ED 13:31
DX: I13.10 Hypertensive heart and chronic kidney disease without heart failure, with stage 1 through stage 4 chronic kidney disease, or unspecified chronic kidney disease (principal); N18.9 Chronic kidney disease, unspecified; I50.9 Heart failure, unspecified; I25.10 Atherosclerotic heart disease of native coronary artery without angina pectoris; E78.00 Pure hypercholesterolemia, unspecified; F32.9 Major depressive disorder, single episode, unspecified; Z79.899 Other long term (current) drug therapy; Z79.82 Long term (current) use of aspirin
CPT/HCPCS: 36415; 71046; 80053; 83880; 84484; 85025; 93005; 96374; 99284; J3490; 93010

== ENCOUNTER 2018-12-05 04:53 | Emergency (ER) | payer MEDICARE, OTHER ==
[2018-12-05 05:05] VITALS: BP 152/44
--- NOTE | 2018-12-05 05:36 | EDM.PDOC ---
ED HPI GENERAL MEDICAL PROBLEM - General Chief Complaint: Respiratory Problem Stated Complaint: SHORT OF BREATH Time Seen by Provider: 12/05/18 05:03 Source of Information: Reports: Patient, Family (), RN Notes Reviewed History Limitations: Reports: No Limitations - History of Present Illness INITIAL COMMENTS - FREE TEXT/NARRATIVE: The patient states that he developed shortness of breath, even at rest, on 12/03/2018. He has orthopnea. He reports only a slight dry cough. No recent fever. No wheezing. No recent chest pain. The patient states that he has had similar dyspnea, recurrently, due to congestive heart failure, which is secondary to aortic stenosis of his bovine aortic valve replacement. The patient is on furosemide. He limits his fluid intake to 2 L per day, and does not specifically check his salt intake, but he states that he doesn't eat very much food, anyway. Medical records indicate that the patient was seen in this ED this past 11/30/2018, with a complaint at that time of the bilateral lower extremity edema , dyspnea, chest discomfort, and a 5 pound weight gain over the prior week. A chest x-ray demonstrated pulmonary vascular congestion. The patient was treated with Bumex 1 mg IV, with improvement of his symptoms. He was discharged home with a prescription for Bumex 0.5 mg daily for 4 days. The patient states that he was seen by his PCP this past 12/03/2018. His dyspnea was discussed. Blood work was obtained, but no chest x-ray, and his PCP apparently prescribed a new diuretic, intended to be taken in addition to the furosemide, however, the prescription was sent to [facility], and has not yet been filled. Neither the patient nor his know the name of the new medicine, but they don't think that it is Bumex. The patient is also reporting lower abdominal pain since yesterday, Monday, . He has had this in the past, and has been told that it is somehow related to his CHF and aortic stenosis (intestinal edema?). The patient was to have replacement of his bovine aortic valve on 11/14/2018, however, after he was worked up for it in [place], they apparently felt that it was too complicated, and referred him to [facility]. The patient has an appointment to be evaluated for valve replacement at [facility] on 12/19/2018. The patient's PCP is Dr. Nash Gray. The patient's Donor Relations Officer is Dr. Daniel Martinez. - Related Data Allergies Allergy/AdvReac Type Severity Reaction Status Date / Time No Known Allergies Allergy Verified 12/05/18 05:05 Home Meds: Home Meds Aspirin [Halfprin] 81 mg PO DAILY 09/06/17 [History] Metoprolol Tartrate 25 mg PO BID 09/06/17 [History] Simvastatin 20 mg PO DAILY 09/06/17 [History] Sertraline [Zoloft] 50 mg PO DAILY 09/30/18 [History] amLODIPine Besylate [Amlodipine Besylate] 5 mg PO DAILY 10/20/18 [History] Furosemide [Lasix] 40 mg PO 1300 10/26/18 [History] Furosemide [Lasix] 40 mg PO QAM 10/26/18 [History] Iron,Carbonyl/Vit C/Vit B12/Fa [Iron 100 Plus Tablet] 65 mg PO DAILY 10/26/18 [ History] Lisinopril 20 mg PO DAILY 10/27/18 [History] Bumetanide [Bumex] 0.5 mg PO QAM #4 tab 12/05/18 [Rx] Past Medical History HEENT History: Reports: Impaired Vision Other HEENT History: Wears glasses Cardiovascular History: Reports: CAD, Heart Failure, High Cholesterol, Hypertension, Other (See Below) (Aortic stenosis of bovine AVR) Gastrointestinal History: Reports: Hemorrhoids Genitourinary History: Reports: Chronic Renal Insuffiency Psychiatric History: Reports: Depression Oncologic (Cancer) History: Reports: Basal Cell Carcinoma (face) - Infectious Disease History Infectious Disease History: Reports: Influenza, Measles - Past Surgical History HEENT Surgical History: Reports: Cataract Surgery, Tonsillectomy Cardiovascular Surgical History: Reports: Coronary Artery Bypass (x 3 vessel, 2002), Valve Replacement (bovine AVR 2002) GI Surgical History: Reports: Colonoscopy (x around 3), EGD (x around 3), Hernia , Inguinal (bilateral) Social & Family History - Family History Family Medical History: Noncontributory - Tobacco Use Smoking Status *Q: Former Smoker Years of Tobacco use: 66 Packs/Tins Daily: 1 Month/Year Tobacco Last Used: Quit 2005 - Caffeine Use Caffeine Use: Reports: Coffee, Tea Other Caffeine Use: decaf - Alcohol Use Alcohol Use History: No - Recreational Drug Use Recreational Drug Use: No - Living Situation & Occupation Living situation: Reports: , with Spouse Occupation: Retired ED ROS GENERAL - Review of Systems Review Of Systems: ROS reveals no pertinent complaints other than HPI. ED EXAM, GENERAL - Physical Exam Exam: See Below Exam Limited By: No Limitations General Appearance: Alert, WD/WN, No Apparent Distress Eye Exam: Bilateral Eye: EOMI, Normal Inspection Ears: Normal External Exam, Hearing Grossly Normal Nose: Normal Inspection Throat/Mouth: Normal Inspection, Normal Lips, Normal Voice, No Airway Compromise Head: Atraumatic, Normocephalic Neck: Normal Inspection, Full Range of Motion Respiratory/Chest: No Respiratory Distress, Lungs Clear, No Accessory Muscle Use , Decreased Breath Sounds (bibasilar). No: Crackles, Rhonchi, Wheezing, Prolonged Expiration Cardiovascular: Normal Peripheral Pulses, Regular Rate, Rhythm, No Gallop, No JVD, No Murmur, No Rub Peripheral Pulses: 4+: Radial (L), Radial (R) GI/Abdominal: Normal Bowel Sounds, Soft, Non-Tender, No Organomegaly, No Distention, No Abnormal Bruit, No Mass (Male) Exam: Deferred Rectal (Males) Exam: Deferred Back Exam: Normal Inspection, Full Range of Motion, NT Extremities: Normal Inspection, Normal Range of Motion, Normal Capillary Refill Neurological: Alert, Oriented, Normal Cognition, No Motor/Sensory Deficits Psychiatric: Normal Affect Skin Exam: Warm, Dry, Intact, Normal Color, No Rash Course - Vital Signs Last Recorded V/S: Last Vital Signs Temp 36.4 C 12/05/18 05:01 Pulse 90 12/05/18 05:01 Resp 26 H 12/05/18 05:01 BP 152/44 H 12/05/18 05:01 Pulse Ox 92 L 12/05/18 05:01 - Orders/Labs/Meds Orders: Active Orders 24 hr Category Date Time Status Chest 2V [CR] Stat Exams 12/05/18 05:22 Taken CBC WITH MANUAL DIFF [HEME] Stat Lab 12/05/18 05:35 Results Labs: Laboratory Tests 12/05/18 12/05/18 12/05/18 Range/Units 05:35 05:35 05:35 WBC 8.90 (4.23-9.07) K/mm3 RBC 4.09 L (4.63-6.08) M/mm3 Hgb 12.2 L (13.7-17.5) gm/L Hct 36.3 L (40.1-51.0) % MCV 88.8 (79.0-92.2) fl MCH 29.8 (25.7-32.2) pg MCHC 33.6 (32.2-35.5) g/dl RDW Std Deviation 45.0 H (35.1-43.9) fL Plt Count 221 (163-337) K/mm3 MPV 11.5 (9.4-12.3) fl Sodium 142 (136-145) mEq/L Potassium 3.8 (3.5-5.1) mEq/L Chloride 105 (98-107) mEq/L Carbon Dioxide 28 (21-32) mEq/L Anion Gap 12.8 (5-15) BUN 26 H (7-18) mg/dL Creatinine 1.3 (0.7-1.3) mg/dL Est Cr Clr Drug Dosing 43.81 mL/min Estimated GFR (MDRD) 53 (>60) mL/min BUN/Creatinine Ratio 20.0 H (14-18) Glucose 135 H (83-115) mg/dL Calcium 9.0 (8.5-10.1) mg/dL Magnesium 2.0 (1.8-2.4) mg/dl Total Bilirubin 0.5 (0.2-1.0) mg/dL AST 19 (15-37) U/L ALT 26 (16-63) U/L Alkaline Phosphatase 77 (46-116) U/L NT-Pro-B Natriuret Pep 83514 H (0-450) pg/mL Total Protein 6.7 (6.4-8.2) g/dl Albumin 3.3 L (3.4-5.0) g/dl Globulin 3.4 gm/dL Albumin/Globulin Ratio 1.0 (1-2) Meds: Medications Discontinued Medications Generic Name Dose Route Start Last Admin Trade Name Freq PRN Reason Stop Dose Admin Bumetanide 1 mg 12/05/18 05:55 12/05/18 06:03 Bumex IVPUSH 12/05/18 05:56 1 mg ONETIME ONE Administration - Re-Assessments/Exams Free Text/Narrative Re-Assessment/Exam: 12/05/18 05:25 By history, the patient is likely suffering from decompensated CHF, although his lung exam is fairly benign. I've ordered a chest x-ray and some blood work to evaluate. 12/05/18 05:52 2-view chest radiograph reviewed. The cardiac silhouette is within normal limits. There is mild pulmonary vascular congestion, consistent with CHF exacerbation. There are bilateral pleural effusions, slightly greater than on prior chest radiograph dated 11/30/2018. There is bibasilar atelectasis. No focal infiltrate. No pneumothorax. Formal read per the Radiologist pending. Based on the chest radiographs findings, I will order Bumex 1 mg IV. 12/05/18 06:36 The patient's CBC shows mild anemia, but is otherwise unremarkable. The patient's CMP is remarkable for a BUN elevated at 26, with a normal creatinine. It was 27 on 11/30/2018. The patient's blood glucose is modestly elevated at 135. The remainder of the CMP is unremarkable. The patient's BNP is significantly elevated at 10,675. It was 13,337 on 2018. The above chest x-ray and labs confirm that the patient is suffering from decompensated CHF. As above, he received 1 mg of IV Bumex. I will discharge him home with a prescription for oral Bumex, and the recommendation that he follow- up with his Donor Relations Officer within a week. 12/05/18 06:42 The above plan was discussed with the patient. He is in agreement. He states that he will be following up with Dr. Gray this coming 12/07/2018. Departure - Departure Time of Disposition: 06:43 Disposition: Home, Self-Care 01 Condition: Good Clinical Impression: CHF exacerbation Qualifiers: Heart failure type: unspecified Qualified Code(s): I50.9 - Heart failure, unspecified - Discharge Information *PRESCRIPTION DRUG MONITORING PROGRAM REVIEWED*: Not Applicable *COPY OF PRESCRIPTION DRUG MONITORING REPORT IN PATIENT JESSI: Not Applicable Prescriptions: Bumetanide [Bumex] 0.5 mg PO QAM #4 tab Referrals: Nash Gray MD [Primary Care Provider] - Danile Martinez MD [Ordering Only Provider] - Forms: ED Department Discharge Additional Instructions: You were seen in the emergency room for shortness of breath, even at rest. Workup in the ER included blood work and a chest x-ray. Your tests showed that you were suffering from decompensated congestive heart failure. You were given IV Bumex (a diuretic) in the ER. You have been given a prescription for oral Bumex. Take 1/2 a tablet every morning, starting tomorrow morning, , 12/06/2018, as prescribed. Follow-up with your PCP, Dr. Omar Gray, at your previously scheduled appointment this coming 12/07/2018. If any other problems, please do not hesitate to return to the ER. - My Orders Last 24 Hours: My Active Orders 12/05/18 05:22 Chest 2V [CR] Stat 12/05/18 05:35 CBC WITH MANUAL DIFF [HEME] Stat - Assessment/Plan Last 24 Hours: My Active Orders 12/05/18 05:22 Chest 2V [CR] Stat 12/05/18 05:35 CBC WITH MANUAL DIFF [HEME] Stat
[2018-12-05] MEDS ORDERED: Bumetanide 1 MG/4 ML MDV IVPUSH ONE (05:55)
--- NOTE | 2018-12-05 12:37 | CR ---
Chest: Two views of the chest were obtained. Comparison: Prior chest x-ray of 11/30/18. Heart size and mediastinum are within normal limits. Small bilateral pleural effusions again seen. Increasing lung markings from prior study most likely representing worsening pulmonary vascular congestion. Previous sternotomy is noted. Bony structures show slight degenerative change within the spine. Impression: 1. Worsening findings of CHF as noted above. Diagnostic code #3
== END 2018-12-05 07:07 | disposition home or self-care (01) ==
LOC: JD.ED 04:53
DX: I13.0 Hypertensive heart and chronic kidney disease with heart failure and stage 1 through stage 4 chronic kidney disease, or unspecified chronic kidney disease (principal); I50.9 Heart failure, unspecified; N18.9 Chronic kidney disease, unspecified; F32.9 Major depressive disorder, single episode, unspecified; Z79.899 Other long term (current) drug therapy; Z87.891 Personal history of nicotine dependence; Z79.82 Long term (current) use of aspirin; Z95.4 Presence of other heart-valve replacement
CPT/HCPCS: 36415; 71046; 80053; 83735; 83880; 85007; 85027; 96374; 99285; J3490; 99283

== ENCOUNTER 2019-12-31 08:47 | Emergency (ER) | payer MEDICARE, OTHER ==
[2019-12-31 08:57] VITALS: BP 169/72; PULSE 60
[2019-12-31] MEDS ORDERED: Sodium Chloride 0.9% 1,000 ML IV SCH (09:00)
--- NOTE | 2019-12-31 09:03 | EDM.PDOC ---
ED HPI GENERAL MEDICAL PROBLEM - General Chief Complaint: Lower Extremity Injury/Pain Stated Complaint: [facility] Time Seen by Provider: 12/31/19 08:58 Source of Information: Reports: Patient History Limitations: Reports: No Limitations - History of Present Illness INITIAL COMMENTS - FREE TEXT/NARRATIVE: 84-year-old male presents to the ED per [facility] ambulance. He is living with his with his daughter here in [place]. He states he got up from the easy chair and then felt dizzy and fell backwards landing hard on his left buttock and hip area. Immediate pain in this area and inability to get up from the floor. This precipitated ambulance call. He denies hitting his head hurting his neck chest wall extremities other than his left hip. Patient has taken his usual medications this morning. This includes several diuretics. Paramedics have given him 50 mcg of fentanyl in route to the hospital for pain relief. Med list reveals that he is on Plavix 75 mg daily and baby aspirin daily. Onset: Today Onset Date: 12/31/19 Onset Time: 08:00 Duration: Minutes: Location: Reports: Lower Extremity, Left (Pain left buttock area and left hip.) Quality: Reports: Ache, Throbbing Severity: Moderate Improves with: Reports: Rest Worsens with: Reports: Movement (Any attempt to try to lift or move the left leg hip causes severe pain) Context: Reports: Trauma (Near syncopal event likely orthostatic related causing him to fall after standing from a easy chair.). Denies: Activity, Exercise, Lifting, Sick Contact Associated Symptoms: Reports: No Other Symptoms, Malaise, Shortness of Breath. 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: Other (see below) (Paramedics Jake did give him fentanyl 50 mcg IV in route to the hospital.) Left Pelvic Pain Score (Numeric/FACES): 8 - Related Data Allergies Allergy/AdvReac Type Severity Reaction Status Date / Time No Known Allergies Allergy Verified 12/31/19 08:57 Home Meds: Home Meds Aspirin [Halfprin] 81 mg PO DAILY 09/06/17 [History] Sertraline [Zoloft] 50 mg PO DAILY 09/30/18 [History] Docusate Sodium [Colace] 100 mg PO BID 02/08/19 [History] Potassium Chloride [Klor-Con M20] 20 meq PO DAILY 7 Days #7 tab.er 02/10/19 [Rx] Rosuvastatin [Crestor] 10 mg PO BEDTIME #30 tablet 02/10/19 [Rx] Clopidogrel [Plavix] 75 mg PO DAILY 12/31/19 [History] Losartan [Cozaar] 50 mg PO DAILY 12/31/19 [History] Torsemide 40 mg PO BID 12/31/19 [History] carvediloL [Carvedilol] 3.125 mg PO BID 12/31/19 [History] Past Medical History HEENT History: Reports: Impaired Vision Other HEENT History: Wears glasses Cardiovascular History: Reports: CAD, Heart Failure, Heart Murmur, Heart Valve Replacement, High Cholesterol, Hypertension, SOB on Exertion, Other (See Below) Other Cardiovascular History: aortic stenosis with bovine valve replacement in 2002. Patient is also had a valvuloplasty I believe involving the mitral valve earlier this year in August. Respiratory History: Reports: None, Other (See Below) Other Respiratory History: Pleural effusion Gastrointestinal History: Reports: Hemorrhoids Other Gastrointestinal History: has been having more gas/upset stomach recently Genitourinary History: Reports: Chronic Renal Insuffiency Musculoskeletal History: Reports: None Neurological History: Reports: None Psychiatric History: Reports: Depression Endocrine/Metabolic History: Reports: None Oncologic (Cancer) History: Reports: Basal Cell Carcinoma Other Oncologic History: 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 - Infectious Disease History Infectious Disease History: Reports: Influenza, Measles - Past Surgical History Head Surgeries/Procedures: Reports: None HEENT Surgical History: Reports: Cataract Surgery, Tonsillectomy Cardiovascular Surgical History: Reports: Coronary Artery Bypass, Valve Replacement GI Surgical History: Reports: Colonoscopy, EGD, Hernia, Inguinal Musculoskeletal Surgical History: Reports: None Dermatological Surgical History: Reports: None Social & Family History - Family History Family Medical History: Noncontributory - Caffeine Use Caffeine Use: Reports: Coffee, Soda Other Caffeine Use: coffee he states about 1 cup a day and sode is usually decaff he says - Living Situation & Occupation Living situation: Reports: , with Spouse, with Family (Him and his elderly are living with her daughter at present time.) Occupation: Retired Review of Systems - Review of Systems Review Of Systems: See Below Constitutional: Denies: Chills, Diaphoresis, Fever, Weakness, Other Eyes: Reports: Glasses. Denies: Drainage, Decreased Acuity Ears: Reports: Other Nose: Reports: No Symptoms (Mildly hard of hearing.) Mouth/Throat: Reports: No Symptoms, Other (Injuries to his tongue.) Respiratory: Reports: Shortness of Breath. Denies: Wheezing (Short of breath at times.), Pleuritic Chest Pain, Cough, Sputum Cardiovascular: Reports: Edema, Lightheadedness (Occasionally when he gets up too fast.), Syncope (Her syncopal event this morning believed to be orthostatic related). Denies: Chest Pain, Irregular Heart Rate (He says a little edema in both lower extremities left slightly worse on the right.), Palpitations GI/Abdominal: Reports: No Symptoms Genitourinary: Reports: Other (Urinary frequency with nocturia x2 or 3.) Musculoskeletal: Reports: Back Pain, Joint Pain (Knees hips shoulders and neck at times) Skin: Reports: Bruising (This is fairly easily.) Neurological: Reports: No Symptoms Psychiatric: Reports: No Symptoms ED EXAM, GENERAL - Physical Exam Exam: See Below Exam Limited By: No Limitations General Appearance: Alert, WD/WN, Moderate Distress (In obvious discomfort.), Other (Temperature is 36.7 with a heart rate of 60 respiratory of 16 O2 sats 96 % on room air BP 169/72.) Eye Exam: Bilateral Eye: Normal Inspection (No blepharal pallor or scleral icterus.), PERRL Throat/Mouth: Normal Inspection, Normal Lips, Normal Oropharynx, Other (Tongue is slightly dry.) Head: Atraumatic, Normocephalic, Other Neck: Normal Inspection (No outward signs of any facial or head trauma.), Supple , Non-Tender, Full Range of Motion. No: Carotid Bruit, Limited Range of Motion , Lymphadenopathy (L), Lymphadenopathy (R) Respiratory/Chest: No Respiratory Distress, Lungs Clear, Normal Breath Sounds, Chest Non-Tender, Other (No chest wall tenderness on compression of the ribs and sternum.) Cardiovascular: Regular Rate, Rhythm, No Gallop, No JVD, Systolic Murmur (And systolic ejection murmur at the left lower sternal border compatible with aortic stenosis. Also grade 2-3 holosystolic murmur best heard at the apex of the heart radiating towards the left axilla compatible with mitral insufficiency murmur.). No: Normal Peripheral Pulses, No Edema, No Murmur, Gallop/S3 Peripheral Pulses: 1+: Posterior Tibial (L), Posterior Tibial (R), Dorsalis Pedis (L), Dorsalis Pedis (R), 2+: Carotid (L), Carotid (R) GI/Abdominal: Normal Bowel Sounds, Soft, Non-Tender, No Organomegaly, No Abnormal Bruit, No Mass, Pelvis Stable Back Exam: Normal Inspection, Decreased Range of Motion, Paraspinal Tenderness ( Along both sides of the lumbar spine which he states is always there.). No: CVA Tenderness (L) (Tenderness on palpation of the lumbar spine with pain with sitting up.), CVA Tenderness (R) Extremities: Pedal Edema (Trace pedal edema bilaterally 1-2+ on the left leg up to the mid tib-fib.), Other (He can lift the right leg off the gurney without issue. Good internal and external rotation of his right hip. No positive bowstring sign. He is unable to lift the left leg off the gurney without pain. On examination no palpable deformity of the hip appreciated. There is pain on firm compression over the ischial tuberosity on the left side as compared to the right.) Neurological: Alert, Oriented, CN II-XII Intact, Normal Cognition Psychiatric: Normal Mood, Other (Good deal of discomfort.) Skin Exam: Warm, Dry, Intact, Normal Color, No Rash EKG INTERPRETATION EKG Date: 12/31/19 Time: 09:49 Rhythm: Other (Sinus bradycardia) Rate (Beats/Min): 54 Guffey: LAD-Left Guffey Deviation (-39 degrees) P-Wave: Enlarged (Consider left atrial enlargement) QRS: Other (Near Q wave V1 V2 consider old anteroseptal myocardial infarction. Nonspecific intraventricular conduction delay.) ST-T: Other (T waves are inverted leads I, aVL, leads V3 to V6, and lead II.) QT: Normal EKG Interpretation Comments: Abnormal ECG Course - Vital Signs Last Recorded V/S: Last Vital Signs Temp 36.7 C 12/31/19 08:54 Pulse 60 12/31/19 08:54 Resp 16 12/31/19 08:54 BP 169/72 H 12/31/19 08:54 Pulse Ox 96 12/31/19 08:54 - Orders/Labs/Meds Orders: Active Orders 24 hr Category Date Time Status EKG Documentation Completion [RC] STAT Care 12/31/19 08:59 Active CBC WITH AUTO DIFF [HEME] Stat Lab 12/31/19 09:25 Results TYPE AND SCREEN [BBK] Stat Lab 12/31/19 09:25 Received URINALYSIS W/MICROSCOPIC [UA W/MICROSCOPIC] [URIN] Stat Lab 12/31/19 08:59 Ordered Sodium Chloride 0.9% [Normal Saline] 1,000 ml Med 12/31/19 09:00 Active IV ASDIRECTED Medication Orders Sodium Chloride (Normal Saline) 1,000 mls @ 125 mls/hr IV ASDIRECTED CARLIE Last Admin: 12/31/19 09:31 Dose: 125 mls/hr Labs: Laboratory Tests 12/31/19 12/31/19 12/31/19 Range/Units 09:25 09:25 09:25 WBC 6.41 (4.23-9.07) K/mm3 RBC 3.81 L (4.63-6.08) M/mm3 Hgb 11.0 L (13.7-17.5) gm/dl Hct 34.4 L (40.1-51.0) % MCV 90.3 (79.0-92.2) fl MCH 28.9 (25.7-32.2) pg MCHC 32.0 L (32.2-35.5) g/dl RDW Std Deviation 46.4 H (35.1-43.9) fL Plt Count 217 (163-337) K/mm3 MPV 10.2 (9.4-12.3) fl Neut % (Auto) 73.7 H (34.0-67.9) % Lymph % (Auto) 12.6 L (21.8-53.1) % Pike % (Auto) 9.5 (5.3-12.2) % Eos % (Auto) 3.7 (0.8-7.0) Baso % (Auto) 0.3 (0.1-1.2) % Neut # (Auto) 4.72 (1.78-5.38) K/mm3 Lymph # (Auto) 0.81 L (1.32-3.57) K/mm3 Pike # (Auto) 0.61 (0.30-0.82) K/mm3 Eos # (Auto) 0.24 (0.04-0.54) K/mm3 Baso # (Auto) 0.02 (0.01-0.08) K/mm3 PT 11.3 (9.7-12.0) SECONDS INR 1.04 APTT 26 (22-31) SECONDS Sodium 140 (136-145) mEq/L Potassium 3.8 (3.5-5.1) mEq/L Chloride 103 (98-107) mEq/L Carbon Dioxide 29 (21-32) mEq/L Anion Gap 11.8 (5-15) BUN 34 H (7-18) mg/dL Creatinine 1.8 H (0.7-1.3) mg/dL Est Cr Clr Drug Dosing 31.09 mL/min Estimated GFR (MDRD) 36 (>60) mL/min BUN/Creatinine Ratio 18.9 H (14-18) Glucose 88 (83-115) mg/dL Calcium 9.1 (8.5-10.1) mg/dL Magnesium 2.3 (1.8-2.4) mg/dl Total Bilirubin 0.4 (0.2-1.0) mg/dL AST 24 (15-37) U/L ALT 26 (16-63) U/L Alkaline Phosphatase 98 (46-116) U/L C-Reactive Protein 0.9 (<1.0) mg/dL NT-Pro-B Natriuret Pep (0-450) pg/mL Total Protein 7.3 (6.4-8.2) g/dl Albumin 3.4 (3.4-5.0) g/dl Globulin 3.9 gm/dL Albumin/Globulin Ratio 0.9 L (1-2) 12/31/19 Range/Units 09:25 WBC (4.23-9.07) K/mm3 RBC (4.63-6.08) M/mm3 Hgb (13.7-17.5) gm/dl Hct (40.1-51.0) % MCV (79.0-92.2) fl MCH (25.7-32.2) pg MCHC (32.2-35.5) g/dl RDW Std Deviation (35.1-43.9) fL Plt Count (163-337) K/mm3 MPV (9.4-12.3) fl Neut % (Auto) (34.0-67.9) % Lymph % (Auto) (21.8-53.1) % Pike % (Auto) (5.3-12.2) % Eos % (Auto) (0.8-7.0) Baso % (Auto) (0.1-1.2) % Neut # (Auto) (1.78-5.38) K/mm3 Lymph # (Auto) (1.32-3.57) K/mm3 Pike # (Auto) (0.30-0.82) K/mm3 Eos # (Auto) (0.04-0.54) K/mm3 Baso # (Auto) (0.01-0.08) K/mm3 PT (9.7-12.0) SECONDS INR APTT (22-31) SECONDS Sodium (136-145) mEq/L Potassium (3.5-5.1) mEq/L Chloride (98-107) mEq/L Carbon Dioxide (21-32) mEq/L Anion Gap (5-15) BUN (7-18) mg/dL Creatinine (0.7-1.3) mg/dL Est Cr Clr Drug Dosing mL/min Estimated GFR (MDRD) (>60) mL/min BUN/Creatinine Ratio (14-18) Glucose (83-115) mg/dL Calcium (8.5-10.1) mg/dL Magnesium (1.8-2.4) mg/dl Total Bilirubin (0.2-1.0) mg/dL AST (15-37) U/L ALT (16-63) U/L Alkaline Phosphatase (46-116) U/L C-Reactive Protein (<1.0) mg/dL NT-Pro-B Natriuret Pep 2447 H (0-450) pg/mL Total Protein (6.4-8.2) g/dl Albumin (3.4-5.0) g/dl Globulin gm/dL Albumin/Globulin Ratio (1-2) Meds: Medications Generic Name Dose Route Start Last Admin Trade Name Freq PRN Reason Stop Dose Admin Sodium Chloride 1,000 mls @ 125 mls/hr 12/31/19 09:00 12/31/19 09:31 Normal Saline IV 125 mls/hr ASDIRECTED CARLIE Administration Discontinued Medications Generic Name Dose Route Start Last Admin Trade Name Carmen PRN Reason Stop Dose Admin Hydromorphone HCl 1 mg 12/31/19 10:00 12/31/19 10:06 Dilaudid IVPUSH 12/31/19 10:01 1 mg ONETIME ONE Administration Ondansetron HCl 4 mg 12/31/19 10:00 12/31/19 10:06 Zofran IVPUSH 12/31/19 10:01 4 mg ONETIME ONE Administration - Radiology Interpretation Free Text/Narrative:: 84-year-old male presents to the ED after a near syncopal event likely due to orthostasis as he stood up from an easy chair and he believes the chair may have moved on him and caused him to lose his balance.. At any rate he fell onto his left buttock cheek with immediate pain in the left hip and buttock area. Unable to get up from the floor which precipitated ambulance call. On examination he does not appear to have injured any other body parts. Pain is localized to the ischial tuberosity on the left side. He is unable to lift the left hip off the gurney. He states his pain is tolerable at this point time after fentanyl 50 mcg IV was administered by paramedics in route to the hospital. He will have a pelvis film x1 done AP view. X-ray of the left femur to be done. Teen labs to be done to include BNP. - Re-Assessments/Exams Free Text/Narrative Re-Assessment/Exam: 12/31/19 09:25 chest x-ray done portably reveals mild cardiomegaly. Mild diffuse vascular congestion pattern appreciated. No pleural effusions. It is of previous midline sternotomy with wires present for closure. X-ray of the pelvis is within normal limits showing no fractures in the pelvis itself. He does reveal a low femoral neck fracture on the left side of his femur. 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 12/31/19 09:40 Hematology is back. White count is normal at 6.41 with auto differential of 73.7% neutrophils. Hemoglobin is 11.0 with hematocrit of 34.4. MCV is normal at 90.3. Platelet count 217,000. 12/31/19 09:52 discussed the findings with the patient and his . Advised that he will have to go to [place] and he prefer [facility] where he is received a good deal of his care as of late. We do not have orthopedic surgical coverage this week. He will be transferred to the ER at that facility per ground ambulance. I spoke through the 1 call nurse and I have spoke with Dr. artur San on-call orthopedic surgeon and Dr. Whitt in the ER has accepted care. 12/31/19 10:01 and is now experiencing increased pain left hip. Fentanyl given initially by the paramedics appears to have worn off. We will give Dilaudid 1 mg IV with Zofran 4 mg IV. 12/31/19 10:17 PT is 11.3 with an INR of 1.04. PTT is 26. Sodium 140 with a potassium of 3.8. Chloride 103 with a bicarb of 29. Anion gap is 11.8. BUN is elevated at 34 with a creatinine of 1.8. GFR is 36 i.e. stage III chronic kidney disease. BUN/creatinine ratio is elevated at 18.9. Glucose is 88 with a calcium of 9.1. Magnesium is 2.3. Liver function is normal C-reactive protein is 0.9 BNP is 2447. Total protein is 7.3 with an albumin fraction of 3.4. Departure - Departure Time of Disposition: 10:18 Disposition: DC/Tfer to Acute Hospital 02 Condition: Fair Clinical Impression: Valvular heart disease Closed left hip fracture Qualifiers: Encounter type: initial encounter Qualified Code(s): S72.002A - Fracture of unspecified part of neck of left femur, initial encounter for closed fracture Congestive heart failure Qualifiers: Heart failure type: diastolic Heart failure chronicity: chronic Qualified Code( s): I50.32 - Chronic diastolic (congestive) heart failure Chronic renal insufficiency Qualifiers: Chronic kidney disease stage: stage 3 (moderate) Qualified Code(s): N18.3 - Chronic kidney disease, stage 3 (moderate) - Discharge Information *PRESCRIPTION DRUG MONITORING PROGRAM REVIEWED*: Not Applicable *COPY OF PRESCRIPTION DRUG MONITORING REPORT IN PATIENT JESSI: Not Applicable Referrals: Nash Gray MD [Primary Care Provider] - Forms: ED Department Discharge Additional Instructions: Patient transferred to [facility] in [place] for definitive orthopedic surgical management. No orthopedic surgery is available here in [place] this week. Travel to that facility per ground ambulance. Sepsis Event Note (ED) - Evaluation Sepsis Screening Result: No Definite Risk - Focused Exam Vital Signs: Vital Signs Temp Pulse Resp BP Pulse Ox 12/31/19 08:54 36.7 C 60 16 169/72 H 96 - My Orders Last 24 Hours: My Active Orders 12/31/19 08:59 EKG Documentation Completion [RC] STAT URINALYSIS W/MICROSCOPIC [UA W/MICROSCOPIC] [URIN] Stat 12/31/19 09:00 Sodium Chloride 0.9% [Normal Saline] 1,000 ml IV ASDIRECTED 12/31/19 09:25 CBC WITH AUTO DIFF [HEME] Stat TYPE AND SCREEN [BBK] Stat - Assessment/Plan Last 24 Hours: My Active Orders 12/31/19 08:59 EKG Documentation Completion [RC] STAT URINALYSIS W/MICROSCOPIC [UA W/MICROSCOPIC] [URIN] Stat 12/31/19 09:00 Sodium Chloride 0.9% [Normal Saline] 1,000 ml IV ASDIRECTED 12/31/19 09:25 CBC WITH AUTO DIFF [HEME] Stat TYPE AND SCREEN [BBK] Stat
[2019-12-31] MEDS ORDERED: HYDROmorphone 1 MG/ML Syringe IVPUSH ONE (10:00)
[2019-12-31] MEDS ORDERED: Ondansetron 4 MG/2 ML SDV IVPUSH ONE (10:00)
--- NOTE | 2019-12-31 10:10 | CR ---
Chest: AP view of the chest was obtained. Comparison: Prior chest x-ray of 02/19/19. Heart is mildly enlarged. Previous sternotomy is noted. Central pulmonary vessels are mildly increased. No alveolar type densities are seen. Bony structures are grossly intact. Impression: 1. Mild pulmonary vascular congestion suggesting early CHF. Diagnostic code #3 This report was dictated in MDT
--- NOTE | 2019-12-31 10:11 | CR ---
Left femur: AP and lateral views of the left femur were obtained. Mildly displaced subcapital fracture within the left hip. Bony structures are osteopenic. Vascular calcification is noted. No additional fracture or other bony abnormality is appreciated. Impression: 1. Mildly displaced subcapital fracture within the left hip. 2. Other findings believed to be incidental as noted above. Diagnostic code #3 This report was dictated in MDT
--- NOTE | 2019-12-31 10:12 | CR ---
Pelvis: AP view of the pelvis was obtained. Comparison: No pelvis exam. Mildly displaced subcapital fracture within the left hip is noted. Joint spaces within both hips are maintained. Joint space narrowing is noted within the sacroiliac joints. Osteopenia is present. Vascular calcification is noted. Surgical clips are seen within the pelvis. Impression: 1. Mildly displaced subcapital fracture within the left hip. 2. Other nonacute findings as described above. Diagnostic code #3 This report was dictated in MDT
== END 2019-12-31 10:15 ==
LOC: JD.ED 08:47
DX: S72.012A Unspecified intracapsular fracture of left femur, initial encounter for closed fracture (principal); I11.0 Hypertensive heart disease with heart failure; I13.0 Hypertensive heart and chronic kidney disease with heart failure and stage 1 through stage 4 chronic kidney disease, or unspecified chronic kidney disease; N18.3 Chronic kidney disease, stage 3 (moderate); I50.32 Chronic diastolic (congestive) heart failure; I38 Endocarditis, valve unspecified; R00.1 Bradycardia, unspecified; F32.9 Major depressive disorder, single episode, unspecified; Z95.1 Presence of aortocoronary bypass graft; I25.10 Atherosclerotic heart disease of native coronary artery without angina pectoris; E78.00 Pure hypercholesterolemia, unspecified; Z79.82 Long term (current) use of aspirin; Z79.899 Other long term (current) drug therapy; Z79.02 Long term (current) use of antithrombotics/antiplatelets; W18.30XA Fall on same level, unspecified, initial encounter
CPT/HCPCS: 36415; 71045; 72170; 73552; 80053; 81001; 83735; 83880; 85025; 85610; 85730; 86140; 86850; 86900; 86901; 93005; 96361; 96374; 96375; 99285; J1170; J2405; J7030; 93010

== ENCOUNTER 2021-02-08 14:52 | Emergency (ER) | payer MEDICARE, OTHER ==
--- NOTE | 2021-02-08 16:22 | EDM.PDOC ---
ED HPI GENERAL MEDICAL PROBLEM - General Chief Complaint: Lower Extremity Injury/Pain Stated Complaint: LEG PAIN SENT BY DR STORM Time Seen by Provider: 02/08/21 15:00 Source of Information: Reports: Patient, RN Notes Reviewed History Limitations: Reports: No Limitations - History of Present Illness INITIAL COMMENTS - FREE TEXT/NARRATIVE: Patient is an 85-year-old male presenting to the emergency department for evaluation with regards to left hip pain and fever. He was seen at the [facility] prior to coming here and noted to be slightly febrile. Patient reports pain to his left hip, but tells me he has had this pain for the last year. Nursing staff reports that they were told pain over the last 2 to 3 days. He states that he has been weak, but states he is always fairly weak. He ambulates at home with a cane or a wr. Patient reports that he has not voided so far today. He reports that he feels that he has been febrile. Temperature in triage was found to be 99.6. Denies any nausea, vomiting, or diarrhea. He has had no significant abdominal pain. He does have a history of a left hip replacement done approximately 1 year ago. Patient states has been having pain since that was completed. Left Hip Pain Score (Numeric/FACES): 9 - Related Data Allergies Allergy/AdvReac Type Severity Reaction Status Date / Time No Known Allergies Allergy Verified 12/31/19 08:57 Home Meds: Home Meds Aspirin [Halfprin] 81 mg PO DAILY 09/06/17 [History] Docusate Sodium [Colace] 100 mg PO BID 02/08/19 [History] Potassium Chloride [Klor-Con M20] 20 meq PO DAILY 7 Days #7 tab.er 02/10/19 [Rx] Rosuvastatin [Crestor] 10 mg PO BEDTIME #30 tablet 02/10/19 [Rx] Clopidogrel [Plavix] 75 mg PO DAILY 12/31/19 [History] Torsemide 40 mg PO BID 12/31/19 [History] carvediloL [Carvedilol] 3.125 mg PO BID 12/31/19 [History] Acetaminophen 650 mg PO Q6H PRN 02/08/21 [History] DULoxetine [Cymbalta] 30 mg PO DAILY 02/08/21 [History] Iron,Carb/Vit C/Vit B12/Folic [Iron 100 Plus Tablet] 1 tab PO DAILY 02/08/21 [History] amLODIPine [Norvasc] 5 mg PO DAILY 02/08/21 [History] metOLazone [Metolazone] 2.5 mg PO WEEKLY 02/08/21 [History] Past Medical History HEENT History: Reports: Impaired Vision Other HEENT History: Wears glasses Cardiovascular History: Reports: CAD, Heart Failure, Heart Murmur, Heart Valve Replacement, High Cholesterol, Hypertension, SOB on Exertion, Other (See Below) Other Cardiovascular History: aortic stenosis with bovine valve replacement in 2002. Patient is also had a valvuloplasty I believe involving the mitral valve earlier this year in August. Respiratory History: Reports: None, Other (See Below) Other Respiratory History: Pleural effusion Gastrointestinal History: Reports: Hemorrhoids Other Gastrointestinal History: has been having more gas/upset stomach recently Genitourinary History: Reports: Chronic Renal Insuffiency Musculoskeletal History: Reports: None Neurological History: Reports: None Psychiatric History: Reports: Depression Endocrine/Metabolic History: Reports: None Oncologic (Cancer) History: Reports: Basal Cell Carcinoma Other Oncologic History: 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 - Infectious Disease History Infectious Disease History: Reports: Influenza, Measles, Novel Coronavirus - Past Surgical History Head Surgeries/Procedures: Reports: None HEENT Surgical History: Reports: Cataract Surgery, Tonsillectomy Cardiovascular Surgical History: Reports: Coronary Artery Bypass, Valve Replacement Respiratory Surgical History: Reports: None GI Surgical History: Reports: Colonoscopy, EGD, Hernia, Inguinal Male Surgical History: Reports: None Endocrine Surgical History: Reports: None Neurological Surgical History: Reports: None Musculoskeletal Surgical History: Reports: None Oncologic Surgical History: Reports: None Dermatological Surgical History: Reports: None Social & Family History - Family History Family Medical History: No Pertinent Family History - Tobacco Use Tobacco Use Status *Q: Former Tobacco User Used Tobacco, but Quit: Yes Month/Year Tobacco Last Used: 50 yrs - Caffeine Use Caffeine Use: Reports: None Other Caffeine Use: coffee he states about 1 cup a day and sode is usually decaff he says - Recreational Drug Use Recreational Drug Use: No - Living Situation & Occupation Living situation: Reports: , with Spouse, with Family (Him and his elderly are living with her daughter at present time.) Occupation: Retired Review of Systems - Review of Systems Review Of Systems: See Below Constitutional: Reports: Fever, Weakness Eyes: Reports: No Symptoms Ears: Reports: No Symptoms Nose: Reports: No Symptoms Mouth/Throat: Reports: No Symptoms Respiratory: Reports: No Symptoms Cardiovascular: Reports: No Symptoms GI/Abdominal: Reports: No Symptoms. Denies: Nausea, Vomiting Genitourinary: Reports: No Symptoms Musculoskeletal: Reports: Other (left hip pain) Skin: Reports: No Symptoms Neurological: Reports: Confusion (at baseline - hx of dementia) Psychiatric: Reports: No Symptoms ED EXAM, GENERAL - Physical Exam Exam: See Below General Appearance: Alert, WD/WN, No Apparent Distress Respiratory/Chest: No Respiratory Distress, Lungs Clear, Normal Breath Sounds, No Accessory Muscle Use, Chest Non-Tender Cardiovascular: Normal Peripheral Pulses, Regular Rate, Rhythm, No Edema, No Gallop, No JVD, No Murmur, No Rub GI/Abdominal: Normal Bowel Sounds, Soft, Non-Tender, No Organomegaly, No Distention, No Abnormal Bruit, No Mass Extremities: Other (tenderness to palpation of the left anterior hip and groin fold. No redness or warmth) Neurological: Alert, Oriented, CN II-XII Intact, Normal Cognition, Normal Gait, Normal Reflexes, No Motor/Sensory Deficits Psychiatric: Normal Affect, Normal Mood Skin Exam: Dry, Intact, Normal Color, No Rash, Increased Warmth #1 Interpretation EKG Date: 02/08/21 Time: 16:33 Rhythm: NSR Rate (Beats/Min): 87 [place]: Normal P-Wave: Present QRS: LBBB ST-T: Normal QT: Normal Course - Vital Signs Last Recorded V/S: Last Vital Signs Temp 100.8 F H 02/08/21 18:09 Pulse 92 02/08/21 18:09 Resp 18 02/08/21 18:09 BP 148/80 H 02/08/21 18:09 Pulse Ox 94 L 02/08/21 18:09 - Orders/Labs/Meds Labs: Laboratory Tests 02/08/21 02/08/21 02/08/21 Range/Units 15:39 15:39 15:39 WBC 17.57 H (4.23-9.07) K/mm3 RBC 3.70 L (4.63-6.08) M/mm3 Hgb 11.2 L (13.7-17.5) gm/dl Hct 33.8 L (40.1-51.0) % MCV 91.4 (79.0-92.2) fl MCH 30.3 (25.7-32.2) pg MCHC 33.1 (32.2-35.5) g/dl RDW Std Deviation 41.0 (35.1-43.9) fL Plt Count 314 D (163-337) K/mm3 MPV 9.9 (9.4-12.3) fl Neut % (Auto) 85.4 H (34.0-67.9) % Lymph % (Auto) 4.8 L (21.8-53.1) % [place] % (Auto) 9.3 (5.3-12.2) % Eos % (Auto) 0.1 L (0.8-7.0) Baso % (Auto) 0.1 (0.1-1.2) % Neut # (Auto) 15.01 H (1.78-5.38) K/mm3 Lymph # (Auto) 0.84 L (1.32-3.57) K/mm3 [place] # (Auto) 1.63 H (0.30-0.82) K/mm3 Eos # (Auto) 0.01 L (0.04-0.54) K/mm3 Baso # (Auto) 0.02 (0.01-0.08) K/mm3 Neutrophils % (Manual) (40-60) % Band Neutrophils % (0-10) % Lymphocytes % (Manual) (20-40) % Atypical Lymphs % % Monocytes % (Manual) (2-10) % Eosinophils % (Manual) (0.8-7.0) % Basophils % (Manual) (0.2-1.2) Manual Slide Review Abnormal smear Toxic Granulation Platelet Estimate RBC Morph Comment PT (9.7-12.0) SECONDS INR APTT (21.7-31.4) SECONDS Sodium 140 (136-145) mEq/L Potassium 3.1 L (3.5-5.1) mEq/L Chloride 102 (98-107) mEq/L Carbon Dioxide 26 (21-32) mEq/L Anion Gap 15.1 H (5-15) BUN 32 H (7-18) mg/dL Creatinine 1.8 H (0.7-1.3) mg/dL Est Cr Clr Drug Dosing 30.55 mL/min Estimated GFR (MDRD) 36 (>60) mL/min BUN/Creatinine Ratio 17.8 (14-18) Glucose 126 H (70-99) mg/dL Lactic Acid (0.4-2.0) mmol/L Calcium 8.5 (8.5-10.1) mg/dL Total Bilirubin 0.5 (0.2-1.0) mg/dL AST 15 (15-37) U/L ALT 23 (16-63) U/L Alkaline Phosphatase 87 (46-116) U/L Troponin I (0.00-0.056) ng/mL C-Reactive Protein 30.6 H* (<1.0) mg/dL Total Protein 6.4 (6.4-8.2) g/dl Albumin 2.8 L (3.4-5.0) g/dl Globulin 3.6 gm/dL Albumin/Globulin Ratio 0.8 L (1-2) Urine Color (Yellow) Urine Appearance (Clear) Urine pH (5.0-8.0) Ur Specific Seale (1.005-1.030) Urine Protein (Negative) Urine Glucose (UA) (Negative) Urine Ketones (Negative) Urine Occult Blood (Negative) Urine Nitrite (Negative) Urine Bilirubin (Negative) Urine Urobilinogen (0.2-1.0) Ur Leukocyte Esterase (Negative) Urine RBC (0-5) /hpf Urine WBC (0-5) /hpf Ur Squamous Epith Cells (0-5) /hpf Urine Bacteria (FEW) /hpf Urine Mucus (FEW) /hpf SARS-CoV-2 RNA (MORRIS) (NEGATIVE) 02/08/21 02/08/21 02/08/21 Range/Units 16:15 16:44 16:44 WBC 19.15 H (4.23-9.07) K/mm3 RBC 3.80 L (4.63-6.08) M/mm3 Hgb 11.7 L (13.7-17.5) gm/dl Hct 34.8 L (40.1-51.0) % MCV 91.6 (79.0-92.2) fl MCH 30.8 (25.7-32.2) pg MCHC 33.6 (32.2-35.5) g/dl RDW Std Deviation 41.6 (35.1-43.9) fL Plt Count 320 (163-337) K/mm3 MPV 10.1 (9.4-12.3) fl Neut % (Auto) (34.0-67.9) % Lymph % (Auto) (21.8-53.1) % [place] % (Auto) (5.3-12.2) % Eos % (Auto) (0.8-7.0) Baso % (Auto) (0.1-1.2) % Neut # (Auto) (1.78-5.38) K/mm3 Lymph # (Auto) (1.32-3.57) K/mm3 [place] # (Auto) (0.30-0.82) K/mm3 Eos # (Auto) (0.04-0.54) K/mm3 Baso # (Auto) (0.01-0.08) K/mm3 Neutrophils % (Manual) 85 H (40-60) % Band Neutrophils % 0 (0-10) % Lymphocytes % (Manual) 9 L (20-40) % Atypical Lymphs % 0 % Monocytes % (Manual) 5 (2-10) % Eosinophils % (Manual) 1 (0.8-7.0) % Basophils % (Manual) 0 L (0.2-1.2) Manual Slide Review Toxic Granulation Few Platelet Estimate Adequate RBC Morph Comment Normal PT 11.7 (9.7-12.0) SECONDS INR 1.10 APTT 33.7 H (21.7-31.4) SECONDS Sodium (136-145) mEq/L Potassium (3.5-5.1) mEq/L Chloride (98-107) mEq/L Carbon Dioxide (21-32) mEq/L Anion Gap (5-15) BUN (7-18) mg/dL Creatinine (0.7-1.3) mg/dL Est Cr Clr Drug Dosing mL/min Estimated GFR (MDRD) (>60) mL/min BUN/Creatinine Ratio (14-18) Glucose (70-99) mg/dL Lactic Acid (0.4-2.0) mmol/L Calcium (8.5-10.1) mg/dL Total Bilirubin (0.2-1.0) mg/dL AST (15-37) U/L ALT (16-63) U/L Alkaline Phosphatase (46-116) U/L Troponin I (0.00-0.056) ng/mL C-Reactive Protein (<1.0) mg/dL Total Protein (6.4-8.2) g/dl Albumin (3.4-5.0) g/dl Globulin gm/dL Albumin/Globulin Ratio (1-2) Urine Color Yellow (Yellow) Urine Appearance Clear (Clear) Urine pH 7.0 (5.0-8.0) Ur Specific Seale 1.020 (1.005-1.030) Urine Protein 1+ H (Negative) Urine Glucose (UA) Negative (Negative) Urine Ketones Negative (Negative) Urine Occult Blood Negative (Negative) Urine Nitrite Negative (Negative) Urine Bilirubin Negative (Negative) Urine Urobilinogen 0.2 (0.2-1.0) Ur Leukocyte Esterase Negative (Negative) Urine RBC 0-5 (0-5) /hpf Urine WBC 0-5 (0-5) /hpf Ur Squamous Epith Cells 0-5 (0-5) /hpf Urine Bacteria Few (FEW) /hpf Urine Mucus Few (FEW) /hpf SARS-CoV-2 RNA (MORRIS) (NEGATIVE) 02/08/21 02/08/21 02/08/21 Range/Units 16:44 16:52 17:28 WBC (4.23-9.07) K/mm3 RBC (4.63-6.08) M/mm3 Hgb (13.7-17.5) gm/dl Hct (40.1-51.0) % MCV (79.0-92.2) fl MCH (25.7-32.2) pg MCHC (32.2-35.5) g/dl RDW Std Deviation (35.1-43.9) fL Plt Count (163-337) K/mm3 MPV (9.4-12.3) fl Neut % (Auto) (34.0-67.9) % Lymph % (Auto) (21.8-53.1) % [place] % (Auto) (5.3-12.2) % Eos % (Auto) (0.8-7.0) Baso % (Auto) (0.1-1.2) % Neut # (Auto) (1.78-5.38) K/mm3 Lymph # (Auto) (1.32-3.57) K/mm3 [place] # (Auto) (0.30-0.82) K/mm3 Eos # (Auto) (0.04-0.54) K/mm3 Baso # (Auto) (0.01-0.08) K/mm3 Neutrophils % (Manual) (40-60) % Band Neutrophils % (0-10) % Lymphocytes % (Manual) (20-40) % Atypical Lymphs % % Monocytes % (Manual) (2-10) % Eosinophils % (Manual) (0.8-7.0) % Basophils % (Manual) (0.2-1.2) Manual Slide Review Toxic Granulation Platelet Estimate RBC Morph Comment PT (9.7-12.0) SECONDS INR APTT (21.7-31.4) SECONDS Sodium (136-145) mEq/L Potassium (3.5-5.1) mEq/L Chloride (98-107) mEq/L Carbon Dioxide (21-32) mEq/L Anion Gap (5-15) BUN (7-18) mg/dL Creatinine (0.7-1.3) mg/dL Est Cr Clr Drug Dosing mL/min Estimated GFR (MDRD) (>60) mL/min BUN/Creatinine Ratio (14-18) Glucose (70-99) mg/dL Lactic Acid 1.3 (0.4-2.0) mmol/L Calcium (8.5-10.1) mg/dL Total Bilirubin (0.2-1.0) mg/dL AST (15-37) U/L ALT (16-63) U/L Alkaline Phosphatase (46-116) U/L Troponin I < 0.017 (0.00-0.056) ng/mL C-Reactive Protein (<1.0) mg/dL Total Protein (6.4-8.2) g/dl Albumin (3.4-5.0) g/dl Globulin gm/dL Albumin/Globulin Ratio (1-2) Urine Color (Yellow) Urine Appearance (Clear) Urine pH (5.0-8.0) Ur Specific Seale (1.005-1.030) Urine Protein (Negative) Urine Glucose (UA) (Negative) Urine Ketones (Negative) Urine Occult Blood (Negative) Urine Nitrite (Negative) Urine Bilirubin (Negative) Urine Urobilinogen (0.2-1.0) Ur Leukocyte Esterase (Negative) Urine RBC (0-5) /hpf Urine WBC (0-5) /hpf Ur Squamous Epith Cells (0-5) /hpf Urine Bacteria (FEW) /hpf Urine Mucus (FEW) /hpf SARS-CoV-2 RNA (MORRIS) Negative (NEGATIVE) Meds: Medications Discontinued Medications Generic Name Dose Route Start Last Admin Trade Name Carmen PRN Reason Stop Dose Admin Acetaminophen 650 mg 02/08/21 17:49 02/08/21 18:09 Acetaminophen 325 Mg Tab PO 02/08/21 17:50 650 mg NOW ONE Administration - Re-Assessments/Exams Free Text/Narrative Re-Assessment/Exam: Patient is an 85-year-old male presenting to the emergency department with complaints of left hip pain and fever. We have had differing reports of pain over the last 2 to 3 days, however patient states that he has had pain over the last year but he does seem to be somewhat confused. On exam, patient has tenderness to palpation of the inner left groin but denies tenderness over the greater trochanter. There is no redness or warmth to the area. He does have palpable suprapubic tenderness. I suspect he is in urinary retention. I have ordered septic work-up as well as bladder scan. 02/08/21 17:05 Called patient's , Evelyn, to clarify the duration of pain. Yoli reports that he began to have some mild left hip pain on Monday and has been progressively worsening to where he is unable to walk without significant pain. Patient does have underlying dementia. He had a problem with urinary retention after his left hip surgery but had done well. She states that yesterday he told her to get him some depends because he was having problems with incontinence. 02/08/21 1800 Hematology significant for WBC elevated 19.15 with a left shift. Potassium low at 3.1, and gap 15.1, BUN thirty-two, creatinine 1.8, CRP 30.6. Troponin is undetectably low. Urinalysis shows no signs of infection. Chest x-ray shows no acute abnormalities. Bladder scan showed greater than 700 mils of urine in the bladder. Patient was only able to void approximately 150 mls or urine. I ordered Laureano catheter insertion for urinary retention. Given patient's new onset of left hip pain and lab results, there was concern that he could have infection in his prosthesis. Case was discussed with orthopedist, Dr. Delvalle. He recommended transfer to [facility] for further work-up. Case was discussed with hospitalist, Dr. Rollins. He has accepted the patient for transfer. Recommend no antibiotics be given at this point as the plan is to attempt to tap the hip and culture the fluids. Patient's most recent temperature was 100.8. I ordered Tylenol 650 mg p.o. to be given. Patient and his , Evelyn, were updated and are in agreement with this plan. [facility] will contact us with a room number after which time we will dispatch ambulance for transport. Departure - Departure Time of Disposition: 18:00 Disposition: DC/Tfer to Acute Hospital 02 Condition: Good Clinical Impression: Hip pain, left Leukocytosis Qualifiers: Leukocytosis type: unspecified Qualified Code(s): D72.829 - Elevated white blood cell count, unspecified Fever Qualifiers: Fever type: unspecified Qualified Code(s): R50.9 - Fever, unspecified - Discharge Information Referrals: Nash Gray MD [Primary Care Provider] - Forms: ED Department Discharge Sepsis Event Note (ED) - Evaluation Sepsis Screening Result: No Definite Risk
[2021-02-08] MEDS ORDERED: Acetaminophen 325 MG Tab PO ONE (17:49)
[2021-02-08 18:10] VITALS: BP 148/80; PULSE 92
--- NOTE | 2021-02-09 08:06 | CR ---
Chest: Portable view of the chest was obtained. Comparison: Prior chest x-ray of 12/31/19. Heart size and mediastinum are normal. Lung markings are diffusely increased which appear stable. Minimal density within the left midlung is seen either due to atelectasis or minimal area of pneumonia. Lungs otherwise are clear. Heart size and mediastinum are stable. Stent is seen which is stable within the mediastinum. Bony structure shows nothing acute. Impression: 1. Slight density with the left midlung either due to atelectasis or minimal area of pneumonia. 2. Other findings within the chest are stable from prior exam. Diagnostic code #3
--- NOTE | 2021-02-09 08:07 | CR ---
Left hip: AP and minimal frog-leg lateral view is obtained of the left hip. Comparison: Prior pelvis and left femur study of 12/31/19. Left hip prosthesis is seen. Components are aligned. Underlying bony structures are intact with no acute fracture or other bony abnormality. Slight vascular calcification is noted. Impression: 1. Left hip prosthesis. 2. Other findings as noted above. Nothing acute is appreciated. Diagnostic code #2
== END 2021-02-08 19:10 ==
LOC: JD.ED 14:52
DX: M25.552 Pain in left hip (principal); D72.829 Elevated white blood cell count, unspecified; I44.7 Left bundle-branch block, unspecified; I13.0 Hypertensive heart and chronic kidney disease with heart failure and stage 1 through stage 4 chronic kidney disease, or unspecified chronic kidney disease; N18.9 Chronic kidney disease, unspecified; I50.9 Heart failure, unspecified; I25.10 Atherosclerotic heart disease of native coronary artery without angina pectoris; E78.00 Pure hypercholesterolemia, unspecified; Z87.891 Personal history of nicotine dependence; Z86.16 Personal history of COVID-19; Z79.82 Long term (current) use of aspirin; Z79.02 Long term (current) use of antithrombotics/antiplatelets; Z79.899 Other long term (current) drug therapy; Z20.822 Contact with and (suspected) exposure to COVID-19
CPT/HCPCS: 36415; 51702; 71045; 73502; 80053; 81001; 83605; 84484; 85007; 85025; 85027; 85610; 85730; 86140; 87040; 87077; 87086; 87150; 87181; 87184; 87186; 93005; 99285; A9270; U0002; 93010; 99284

== ENCOUNTER 2021-07-28 15:32 | Inpatient (IN) | payer MEDICARE, OTHER ==
[2021-07-28] MEDS ORDERED: Sodium Chloride 0.9% 10 ML Syringe FLUSH PRN (17:13)
[2021-07-28] MEDS ORDERED: Ondansetron 4 MG/2 ML SDV IVPUSH ONE (17:14)
[2021-07-28] MEDS ORDERED: Sodium Chloride 0.9% 1,000 ML IV STA (17:14)
[2021-07-28] MEDS ORDERED: HYDROmorphone 0.5 MG/0.5 ML Syringe IVPUSH ONE (17:14)
[2021-07-28] MEDS ORDERED: Cefepime 2 GM in Sodium Chloride 0.9% 50 ML IV ONE (19:34)
[2021-07-28] MEDS ORDERED: HYDROmorphone 0.5 MG/0.5 ML Syringe IVPUSH PRN (20:31)
[2021-07-28] MEDS ORDERED: Ondansetron 4 MG/2 ML SDV IVPUSH PRN (20:31)
[2021-07-28] MEDS ORDERED: Vancomycin 1.75 GM in Sodium Chloride 0.9% 500 ML IV ONE (21:00)
[2021-07-29] MEDS ORDERED: Cefepime 1 GM in Sodium Chloride 0.9% 50 ML IV SCH (08:45)
[2021-07-29] MEDS: Docusate Sodium 100 MG Cap PO PRN (10:39)
[2021-07-29] MEDS: Carvedilol 3.125 MG Tab PO SCH ×2 (10:39→21:02)
[2021-07-29] MEDS: Losartan 50 MG Tab PO SCH (10:40)
[2021-07-29] MEDS: Potassium Chloride 20 MEQ Tab.ER PO SCH (10:41)
[2021-07-29] MEDS: Torsemide 20 MG Tab PO SCH ×2 (10:41→21:04)
[2021-07-29] MEDS: DULoxetine 30 MG Cap PO SCH (10:41)
[2021-07-29] MEDS: Tamsulosin 0.4 MG Cap.ER PO SCH (10:41)
[2021-07-29] MEDS: Finasteride 5 MG Tab PO SCH (10:42)
[2021-07-29] MEDS: amLODIPine 5 MG Tab PO SCH (10:42)
[2021-07-29] MEDS: Aspirin 81 MG Tab.EC PO SCH (10:42)
[2021-07-29] MEDS: Cefepime 1 GM in Sodium Chloride 0.9% 50 ML IV SCH (11:12)
[2021-07-29] MEDS ORDERED: Sodium Chloride 0.9% 1,000 ML IV STA (13:19)
[2021-07-29] MEDS ORDERED: Acetaminophen 325 MG Tab PO ONE (17:30)
[2021-07-29] MEDS: Rosuvastatin 10 MG Tab PO SCH (21:03)
[2021-07-30] MEDS ORDERED: Potassium Chloride 20 MEQ Tab.ER PO ONE (09:28)
[2021-07-30] MEDS: Tamsulosin 0.4 MG Cap.ER PO SCH (09:34)
[2021-07-30] MEDS: Aspirin 81 MG Tab.EC PO SCH (09:34)
[2021-07-30] MEDS: Finasteride 5 MG Tab PO SCH (09:35)
[2021-07-30] MEDS: DULoxetine 30 MG Cap PO SCH (09:35)
[2021-07-30] MEDS: amLODIPine 5 MG Tab PO SCH (09:35)
[2021-07-30] MEDS: Torsemide 20 MG Tab PO SCH ×2 (09:37→20:55)
[2021-07-30] MEDS: Carvedilol 3.125 MG Tab PO SCH ×2 (09:38→20:55)
[2021-07-30] MEDS: Losartan 50 MG Tab PO SCH (09:38)
[2021-07-30] MEDS: Potassium Chloride 20 MEQ Tab.ER PO SCH ×2 (09:42→19:05)
[2021-07-30] MEDS: Cefepime 1 GM in Sodium Chloride 0.9% 50 ML IV SCH ×4 (09:43→22:18)
[2021-07-30] MEDS: Acetaminophen/HYDROcodone 325-5 MG Tab PO PRN (20:56)
[2021-07-30] MEDS: Rosuvastatin 10 MG Tab PO SCH (20:56)
[2021-07-31] MEDS: DULoxetine 30 MG Cap PO SCH (09:58)
[2021-07-31] MEDS: Potassium Chloride 20 MEQ Tab.ER PO SCH (09:58)
[2021-07-31] MEDS: Torsemide 20 MG Tab PO SCH (09:59)
[2021-07-31] MEDS: Tamsulosin 0.4 MG Cap.ER PO SCH (09:59)
[2021-07-31] MEDS: Aspirin 81 MG Tab.EC PO SCH (09:59)
[2021-07-31] MEDS: Finasteride 5 MG Tab PO SCH (10:01)
[2021-07-31] MEDS: Carvedilol 3.125 MG Tab PO SCH ×2 (10:01→22:08)
[2021-07-31] MEDS: Losartan 50 MG Tab PO SCH (10:01)
[2021-07-31] MEDS: amLODIPine 5 MG Tab PO SCH (10:02)
[2021-07-31] MEDS: Enoxaparin 30 MG/0.3 ML Syringe SUBCUT SCH (10:03)
[2021-07-31] MEDS: Acetaminophen 325 MG Tab PO PRN (11:32)
[2021-07-31] MEDS: Cefepime 1 GM in Sodium Chloride 0.9% 50 ML IV SCH ×2 (11:35→22:09)
[2021-07-31] MEDS: Potassium Chloride 10 MEQ in Premix Bag 1 BAG IV SCH ×4 (12:24→17:04)
[2021-07-31] MEDS: Acetaminophen/HYDROcodone 325-5 MG Tab PO PRN (15:36)
[2021-07-31] MEDS: Rosuvastatin 10 MG Tab PO SCH (22:07)
[2021-08-01] MEDS: Aspirin 81 MG Tab.EC PO SCH (09:36)
[2021-08-01] MEDS: Losartan 50 MG Tab PO SCH (09:37)
[2021-08-01] MEDS: Finasteride 5 MG Tab PO SCH (09:38)
[2021-08-01] MEDS: Tamsulosin 0.4 MG Cap.ER PO SCH (09:38)
[2021-08-01] MEDS: Potassium Chloride 20 MEQ Tab.ER PO SCH ×2 (09:38→20:36)
[2021-08-01] MEDS: DULoxetine 30 MG Cap PO SCH (09:38)
[2021-08-01] MEDS: Carvedilol 3.125 MG Tab PO SCH ×2 (09:38→20:36)
[2021-08-01] MEDS: Torsemide 20 MG Tab PO SCH (09:39)
[2021-08-01] MEDS: Enoxaparin 30 MG/0.3 ML Syringe SUBCUT SCH (09:40)
[2021-08-01] MEDS: amLODIPine 5 MG Tab PO SCH (09:40)
[2021-08-01] MEDS: Cefepime 1 GM in Sodium Chloride 0.9% 50 ML IV SCH (10:04)
[2021-08-01] MEDS ORDERED: Potassium Chloride 20 MEQ Tab.ER PO SCH (11:00)
[2021-08-01] MEDS ORDERED: Iopamidol 612 MG/ML 100 ML Bottle IVPUSH ONE (14:59)
[2021-08-01] MEDS: Rosuvastatin 10 MG Tab PO SCH (20:36)
[2021-08-01] MEDS ORDERED: Vancomycin 1 GM, Vancomycin 250 MG in Sodium Chloride 0.9% 250 ML IV SCH (22:00)
[2021-08-02] MEDS: Cefepime 1 GM in Sodium Chloride 0.9% 50 ML IV SCH ×2 (00:17→11:09)
[2021-08-02] MEDS ORDERED: Levofloxacin 500 MG Tab PO SCH (06:00)
[2021-08-02] MEDS ORDERED: Levofloxacin 750 MG Tab PO SCH (06:00)
[2021-08-02] MEDS: Acetaminophen/HYDROcodone 325-5 MG Tab PO PRN ×2 (09:20→20:01)
[2021-08-02] MEDS: Potassium Chloride 20 MEQ Tab.ER PO SCH ×2 (09:20→12:34)
[2021-08-02] MEDS: DULoxetine 30 MG Cap PO SCH (09:21)
[2021-08-02] MEDS: Aspirin 81 MG Tab.EC PO SCH (09:21)
[2021-08-02] MEDS: Torsemide 20 MG Tab PO SCH (09:21)
[2021-08-02] MEDS: Tamsulosin 0.4 MG Cap.ER PO SCH (09:21)
[2021-08-02] MEDS: Finasteride 5 MG Tab PO SCH (09:22)
[2021-08-02] MEDS: Enoxaparin 30 MG/0.3 ML Syringe SUBCUT SCH (09:28)
[2021-08-02] MEDS: Losartan 50 MG Tab PO SCH (11:05)
[2021-08-02] MEDS: amLODIPine 5 MG Tab PO SCH (11:06)
[2021-08-02] MEDS: Carvedilol 3.125 MG Tab PO SCH ×2 (11:06→20:03)
[2021-08-02] MEDS: Docusate Sodium 100 MG Cap PO PRN (11:07)
[2021-08-02] MEDS ORDERED: predniSONE 20 MG Tab PO STA (14:04)
[2021-08-02] MEDS: Acetaminophen 325 MG Tab PO PRN (19:03)
[2021-08-02] MEDS: Rosuvastatin 10 MG Tab PO SCH (20:01)
[2021-08-03] MEDS: Acetaminophen/HYDROcodone 325-5 MG Tab PO PRN (02:28)
[2021-08-03] MEDS: Docusate Sodium 100 MG Cap PO PRN (05:04)
[2021-08-03] MEDS ORDERED: Levofloxacin 250 MG Tab PO SCH (06:00)
[2021-08-03] MEDS: Losartan 50 MG Tab PO SCH (08:18)
[2021-08-03] MEDS: Potassium Chloride 20 MEQ Tab.ER PO SCH (08:18)
[2021-08-03] MEDS: DULoxetine 30 MG Cap PO SCH (08:19)
[2021-08-03] MEDS: amLODIPine 5 MG Tab PO SCH (08:19)
[2021-08-03] MEDS: Aspirin 81 MG Tab.EC PO SCH (08:19)
[2021-08-03] MEDS: Tamsulosin 0.4 MG Cap.ER PO SCH (08:19)
[2021-08-03] MEDS: Finasteride 5 MG Tab PO SCH (08:19)
[2021-08-03] MEDS: Torsemide 20 MG Tab PO SCH (08:19)
[2021-08-03] MEDS: Carvedilol 3.125 MG Tab PO SCH (08:19)
[2021-08-03] MEDS ORDERED: Enoxaparin 40 MG/0.4 ML Syringe SUBCUT SCH (09:00)
[2021-08-03] MEDS ORDERED: Levofloxacin 750 MG Tab PO SCH (09:00)
[2021-08-03 11:07] VITALS: BP 123/81; PULSE 69
[2021-08-03] MEDS ORDERED: predniSONE 10 MG Tab PO ONE (12:30)
== END 2021-08-03 16:05 | disposition home or self-care (01) | DRG 549 ==
LOC: JD.ED 15:32 → JD.MS 07-30 12:01
PROVIDERS: ADMIT Internal Medicine; ATTEND Internal Medicine
DX: M00.9 Pyogenic arthritis, unspecified (principal); I50.32 Chronic diastolic (congestive) heart failure; I13.0 Hypertensive heart and chronic kidney disease with heart failure and stage 1 through stage 4 chronic kidney disease, or unspecified chronic kidney disease; E87.1 Hypo-osmolality and hyponatremia; N18.9 Chronic kidney disease, unspecified; I50.9 Heart failure, unspecified; Z95.4 Presence of other heart-valve replacement; L03.114 Cellulitis of left upper limb; M13.851 Other specified arthritis, right hip; N18.32 Chronic kidney disease, stage 3b; M25.532 Pain in left wrist; I25.10 Atherosclerotic heart disease of native coronary artery without angina pectoris; Z20.822 Contact with and (suspected) exposure to COVID-19; H54.7 Unspecified visual loss; M25.451 Effusion, right hip; F03.90 Unspecified dementia, unspecified severity, without behavioral disturbance, psychotic disturbance, mood disturbance, and anxiety; F32.A Depression, unspecified; E87.6 Hypokalemia; E78.00 Pure hypercholesterolemia, unspecified; F41.9 Anxiety disorder, unspecified; Z79.01 Long term (current) use of anticoagulants; Z95.2 Presence of prosthetic heart valve; Z79.82 Long term (current) use of aspirin; Z79.899 Other long term (current) drug therapy; Z85.828 Personal history of other malignant neoplasm of skin; Z95.1 Presence of aortocoronary bypass graft
CPT/HCPCS: 36415 ×2; 73502; 73700; 80053 ×2; 81001; 83605; 85025 ×2; 86140 ×2; 87040 ×2; 93971; 96365; 96366; 96367; 96375; 99285; A9270 ×10; J0692 ×3; J1170; J2405; J3370; J7030; J7040; U0002; 73110-26-LT; 73110-LT; 73201-26-LT; 73201-LT; 80048; 80202; 83735; 84145; 84550; 85027; 86430; J1650; J3480; J7050; J7512; Q9967

== ENCOUNTER 2023-10-31 08:09 | Emergency (ER) | payer MEDICARE, OTHER ==
[2023-10-31 11:06] VITALS: BP 171/80; PULSE 73
== END 2023-10-31 10:37 | disposition home or self-care (01) ==
LOC: JD.ED 08:09
DX: S70.01XA Contusion of right hip, initial encounter (principal); I13.0 Hypertensive heart and chronic kidney disease with heart failure and stage 1 through stage 4 chronic kidney disease, or unspecified chronic kidney disease; I50.9 Heart failure, unspecified; N18.9 Chronic kidney disease, unspecified; I25.10 Atherosclerotic heart disease of native coronary artery without angina pectoris; Z86.16 Personal history of COVID-19; Z79.899 Other long term (current) drug therapy; Z95.1 Presence of aortocoronary bypass graft; W07.XXXA Fall from chair, initial encounter
CPT/HCPCS: 73502-26-RT; 73502-RT; 73562-26-RT; 73562-RT; 99283; 99284

== ENCOUNTER 2024-09-21 16:31 | Emergency (ER) | payer MEDICARE ==
[2024-09-21 16:40] VITALS: BP 207/52; PULSE 92
[2024-09-21 17:36] LABS: BASOPHILS ABSOLUTE AUTO 0.1 K/mm3 (0.0-0.2); BASOPHILS PERCENT AUTO 0.4 % (0.0-1.0); EOSINOPHILS ABSOLUTE AUTO 0.1 K/mm3 (0.0-0.4); EOSINOPHILS PERCENT AUTO 0.9 % (0.0-6.0); HEMATOCRIT 38.9 % (42.0-52.0); HEMOGLOBIN 12.9 gm/dl (14.0-18.0); IMMATURE GRAN ABSOLUTE AUTO 0.04 K/mm3 (0.00-0.05); IMMATURE GRAN PERCENT AUTO 0.3 % (0.0-0.4); LYMPHOCYTES ABSOLUTE AUTO 1.5 K/mm3 (1.0-4.8); LYMPHOCYTES PERCENT AUTO 13.1 % (24.0-44.0); MEAN CORPUSCULAR HEMOGLOBIN 28.9 pg (28.0-32.0); MEAN CORPUSCULAR HGB CONC 33.2 g/dl (32.0-36.0); MEAN CORPUSCULAR VOLUME 87.2 fl (83.0-99.0); MONOCYTES ABSOLUTE AUTO 0.8 K/mm3 (0.0-0.8); MONOCYTES PERCENT AUTO 6.7 % (0.0-8.0); NEUTROPHILS ABSOLUTE AUTO 9.2 K/mm3 (1.8-7.7); NEUTROPHILS PERCENT AUTO 78.6 % (41.0-71.0); PLATELET COUNT,PLT 256 K/mm3 (150-400); RED BLOOD CELL COUNT 4.46 M/mm3 (4.52-5.90); WHITE BLOOD CELL COUNT,WBC 11.74 K/mm3 (3.9-11.3)
[2024-09-21 17:58] LABS: ALANINE AMINOTRANSFERASE,ALT 13 U/L (16-63); ALBUMIN 3.3 g/dl (3.4-5.0); ALKALINE PHOSPHATASE 98 U/L (46-116); ANION GAP 10.6 (5-15); ASPARTATE AMNIOTRANSFERASE,AST 15 U/L (15-37); BILIRUBIN TOTAL 0.3 mg/dL (0.2-1.0); BLOOD UREA NITROGEN,BUN 23 mg/dL (7-18); BUN/CREATININE RATIO 14.4 (14-18); CALCIUM 8.6 mg/dL (8.5-10.1); CARBON DIOXIDE,CO2 27 mEq/L (21-32); CHLORIDE,CL 105 mEq/L (98-107); CREATININE 1.6 mg/dL (0.7-1.3); ESTIMATED GFR 41 mL/min (>60); GLUCOSE RANDOM 94 mg/dL (70-99); POTASSIUM,K 3.6 mEq/L (3.5-5.1); PROTEIN TOTAL,TP 6.7 g/dl (6.4-8.2); SODIUM,NA 139 mEq/L (136-145)
[2024-09-21 18:15] LABS: APPEARANCE,URINE CLEAR (Clear); BILIRUBIN,URINE NEGATIVE (Negative); COLOR,URINE YELLOW (Yellow); GLUCOSE,URINE NEGATIVE (Negative); KETONES,URINE NEGATIVE (Negative); LEUKOCYTE ESTERASE,URINE NEGATIVE (Negative); NITRITE,URINE NEGATIVE (Negative); OCCULT BLOOD,URINE NEGATIVE (Negative); PROTEIN,URINE 2+ (Negative); UROBILINOGEN,URINE 0.2 (0.2-1.0)
[2024-09-21 18:21] LABS: BACTERIA,URINE FEW /hpf (FEW); EPITHELIAL CELLS,URINE 0-5 /hpf (0-5); RBC,URINE 0-5 /hpf (0-5); WBC,URINE 0-5 /hpf (0-5)
[2024-09-21 18:22] LABS: MUCUS,URINE NOT SEEN /hpf (FEW)
[2024-09-21] MEDS: QUEtiapine 25 MG Tab PO ONE ×2 (18:49→18:50)
== END 2024-09-21 19:06 | disposition home or self-care (01) ==
LOC: JD.ED 16:31
DX: F03.C11 Unspecified dementia, severe, with agitation (principal); I13.0 Hypertensive heart and chronic kidney disease with heart failure and stage 1 through stage 4 chronic kidney disease, or unspecified chronic kidney disease; I50.9 Heart failure, unspecified; N18.9 Chronic kidney disease, unspecified; I25.10 Atherosclerotic heart disease of native coronary artery without angina pectoris; E78.00 Pure hypercholesterolemia, unspecified; Z86.16 Personal history of COVID-19; Z95.2 Presence of prosthetic heart valve; Z79.899 Other long term (current) drug therapy
CPT/HCPCS: 36415; 80053; 81001; 85025; 99284; 99285; A9270-GY